=== PATIENT | male | born 1945 | race Caucasian/White ===

== ENCOUNTER 2019-07-31 08:18 | Inpatient (IN) | payer OTHER, SELFPAY ==
[2019-07-31] VITALS (27 sets, daily range): BP systolic 99–152; BP diastolic 52–111; PULSE 77–132; RESP 11–20; TEMP 35.9–36.6; O2SAT 97–100; BMI 20.8; BMI 19.8
--- NOTE | 2019-07-31 08:23 | NURSING ---
NO OLD EKGS
--- NOTE | 2019-07-31 08:33 | EKG12_ITS ---
Test Reason : CP Blood Pressure : / mmHG Vent. Rate : 130 BPM Atrial Rate : 120 BPM P-R Int : 000 ms QRS Dur : 088 ms QT Int : 320 ms P-R-T Axes : 000 012 099 degrees QTc Int : 470 ms Atrial fibrillation with rapid ventricular response Nonspecific ST and T wave abnormality Abnormal ECG Confirmed by OSKAR BRISCOE, ALVIN ([id number]), newspaper managing editor DARÍO WOODWARD ([id number]) on 08/01/2019 8:01:58 AM Referred By: Zoila Ledesma Confirmed By:WINNIE SCHMITT MD
--- NOTE | 2019-07-31 08:37 | RAD_ITS ---
STUDY: X-RAY CHEST REASON FOR EXAM: Male, 74 years old. CHEST PAIN TECHNIQUE: Single AP portable view of the chest. COMPARISON: None. FINDINGS: EKG electrodes are seen. The lungs are clear and expanded. There is no demonstrated pleural abnormality. Normal size heart. Normal mediastinum and jorge. Normal visualized pulmonary arteries. There is atherosclerotic calcification of the aortic arch with tortuosity. There are diffuse degenerative changes of the visualized thoracic spine. Normal visualized ribs, clavicles, and shoulders. There is no demonstrated abnormality of the visualized soft tissue structures of the upper abdomen. RAD/Chest 1 View (Portable) IMPRESSION: No acute abnormality is seen. Electronically Signed: Beau Martinez, at 9:09 EST , Service support ,
[2019-07-31] MEDS: dilTIAZem 25 MG/5 ML Vial 10 MG IV BOLUS (08:52)
[2019-07-31] MEDS: 0.9% Normal Saline 1,000 ML 150 ML IV ×2 (08:53→12:41)
--- NOTE | 2019-07-31 08:55 | ED.DCSUM_ITS ---
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 When asked how he is feeling it is extremely difficult to understand him on assuming due to a prior existing dysarthria. He tells me he is feeling his heart beating very hard and fast and occasionally makes him twinge. I cannot understand if he is from home or nursing facility. Cannot understand who his doctor is or where he gets his prescriptions filled. I am able to use online resources to see he has a history of hypertension, hypercholesterolemia, prior stroke, CHF, glaucoma, and a prior cardiac stent. Reportedly through EMS he did not take his metoprolol this morning and they administered a total of 10 mg of metoprolol for A. fib with RVR in route to the hospital and administered aspirin. Past Medical History - Allergies and Home Meds Allergies/Adverse Reactions: Allergies No Known Allergies Allergy (Verified 07/31/19 08:20) Primary Care Physician: [facility],[place] [Primary Care Provider] - Review of Systems General: Denies: Chills, Fever, Sweats Eyes: Denies: Visual changes - bilaterally, Diplopia ENT: Denies: Rhinorrhea, Sore throat Cardiovascular: Reports: Chest pain, Palpitations, Heart racing Respiratory: Denies: Dyspnea, Cough, Dyspnea on exertion Gastrointestinal: Denies: Abdominal pain, Nausea, Vomiting, Diarrhea, Melena, Hematochezia Genitourinary: Denies: Dysuria, Hematuria, Frequency Musculoskeletal: Denies: Back pain, Extremity Pain Skin: Denies: Rash, Wounds Neurological: Denies: Headache, Weakness, Numbness Physical Exam Vital Signs/Narrative: Vital Signs Temp Pulse Resp BP Pulse Ox 07/31/19 08:20 96.6 F L 119 H 16 152/111 H 99 Inital Vital Signs reviewed: Yes General: Well nourished, Well developed, No Acute Distress Head: Normocephalic, Atraumatic Eyes: Perrl, EOMI ENT: Moist mucous membranes, No rhinorrhea Neck: Supple, Nontender Cardiovascular: Irregular, Tachycardia, Murmur Respiratory: No distress, CTA bilaterally, Chest nontender Abdomen: Soft, Nontender, Nondistended, Normal bowel sounds Back: Nontender, Normal Inspection Extremities: Nontender, No edema Skin: Normal color, No rash Neurological: Alert, Normal Strength, Normal Sensation, - - Apparent dysarthria Psychological: Normal affect, Normal Mood Diagnostic/Tx/Re-eval - EKG Initial EKG Interpretation: Atrial Fibrillation - EKG demonstrates atrial fibrillation with RVR with a nonspecific ST-T wave abnormality at a rate of 130. - Medical Decision Making Basic labs are negative including a troponin. I have very limited medical information on him. Family was here for a brief period and subsequently left against his medications. We placed him on a Cardizem drip heart rate now 100- 110. Our plan will be admission as this appears to be new onset A. fib. ED Disposition - Plan for ED Patient: Diagnosis: Atrial fibrillation with RVR [facility] [[facility] -
--- NOTE | 2019-07-31 08:57 | ED.RN ---
PT EXTREMELY HARD TO UNDERSTAND, DIFFICULT TO DO DOCUMENTATION. TRIAGING NURSE STATES THAT SHE WAS TOLD THAT FAMILY IS ON THE WAY. AT THIS POINT, NO FAMILY HAS BEEN SEEN BY THIS RN.
--- NOTE | 2019-07-31 09:12 | ED.RN ---
DR JENKINS AWARE OF HEART RATE VARIATION BETWEEN MONITOR VS MANUAL, SEE VITALS DOCUMENTATION. PER DR. JENKINS INITIATE LILIYA BHATT.
[2019-07-31 09:42] LABS: Absolute Lymphocyte Count 0.38 X10^3/uL (0.83-4.51); Absolute Neutrophil Count 12.6 X10^3/uL (2.0-7.7); Basophil# 0.04 X10^3/uL; Basophil% 0.3 % (0-1); Eosinophil# 0.45 X10^3/uL; Eosinophils% 3.2 % (0-5); Hematocrit 44.4 % (40-54); Hemoglobin 14.1 g/dL (13.0-16.5); Lymphocyte # 0.38 X10^3/ul (4.0); Lymphocyte % 2.7 % (19-41); Mean Corp Hgb Conc 31.8 g/dL (32-36); Mean Corpuscular Hgb 31.1 pg (27.0-32.0); Mean Platelet Vol. 10.1 fl (6.2-12.0); Monocyte# 0.74 X10^3/uL; Monocyte% 5.2 % (0-10); NRBC Flagged by Analyzer 0 % (0-5); Neutrophil # 12.58 X10^3/uL (2.7-7.7); POSITIVE DIFFERENTIAL YES; Platelet Count 231 K/mm3 (150-450); RBC Distribution Width CV 12.9 % (11.6-14.6); RBC Distribution Width SD 46.1 fl (35.1-43.9); Red Blood Count 4.53 M/mm3 (4.6-6.2); White Blood Count 14.3 K/mm3 (4.4-11.0)
[2019-07-31 09:45] LABS: Differential Indicated SCAN CRITERIA MET
--- NOTE | 2019-07-31 09:46 | ED.RN ---
FAMILY NOW AT BEDSIDE.
[2019-07-31 09:50] LABS: Prothrombin Time (Protime)PT. 13.1 SECONDS (11.7-14.9)
[2019-07-31 09:52] LABS: Partial Thromboplast Time 28.8 Seconds (24.1-36.2)
[2019-07-31 10:03] LABS: Differential Comment SCANNED
[2019-07-31 10:04] LABS: Anion Gap 3 (5-15); BUN 18 mg/dL (7-18); BUN/Creat Ratio 13.3 RATIO (10-20); Calcium,Total 8.7 mg/dL (8.5-10.1); Chloride 112 mmol/L (98-107); Creatinine, Serum 1.35 mg/dL (0.70-1.30); EST Glomerular Filtration Rate 55 mL/min (>60); Est Glom Filt Rate - Afr Amer 66 mL/min (>60); Glucose 119 mg/dL (74-106); Magnesium 2.2 mg/dL (1.6-2.6); Potassium 4.1 mmol/L (3.5-5.1); Sodium Level 145 mmol/L (136-145); Thyroid Stim Hormone (TSH) 1.47 uIU/mL (0.358-3.74)
--- NOTE | 2019-07-31 10:29 | NURSING ---
[facility]ED [facility], TALKED TO ASH, SYSTEMS DEVELOPMENT CONSULTANT. SHE TOOK INFO AND WE SHOULD GET MED LIST
--- NOTE | 2019-07-31 10:33 | ED.RN ---
PER DR. JENKINS, INCREASE CARDIZEM FROM 5MG/HR TO 10MG/HR.
--- NOTE | 2019-07-31 11:14 | HP.PCM_ITS ---
Problem List (1) Atrial fibrillation with RVR Status: Acute (2) Leucocytosis Status: Acute Qualifiers: Leukocytosis type: unspecified Qualified Code(s): D72.829 - Elevated white blood cell count, unspecified (3) CKD (chronic kidney disease) stage 3, GFR 30-59 ml/min Status: Chronic History of Present Illness Date of Admission: 07/31/19 Chief Complaint: Chest pain - 1 day The patient is a 74 year old M with past medical history of hypertension, history of CVA with residual dysarthria who comes in with complaints of chest pain. History was obtained from the ED physician and review of records. Patient has no past history in [facility]. Family members were not available to give collaborative history. Is hard to understand patient as he has severe dysarthria probably from previous stroke. Per EMS records, patient was found to be in A. fib with RVR, he received 1 dose of IV metoprolol. Labs in the ED showed temperature 96.6 F, heart rate 119, blood pressure 152/111, respiratory rate 16, SPO2 was 99% on room air. His WBC count is 14.3, hemoglobin 14.1, platelet 231, INR 1.0, sodium 145, potassium 4.1, chloride 112, bicarbonate 30, BUN 18, creatinine 1.35, albumin was 2.2, troponin 0 0.015, TSH 1.47. EKG shows A. fib with RVR, ventricular rate of 130. No acute ST-T changes. Admitting chest x-ray showed no acute abnormality. Past Medical History Past Medical History (Chronic Problems): Chronic Problems CKD (chronic kidney disease) stage 3, GFR 30-59 ml/min (Chronic) Allergies No Known Allergies Allergy (Verified 07/31/19 08:20) Home Medications: Ambulatory Orders Medication Instructions Recorded Lisinopril 1 tab PO DAILY 07/31/19 Metoprolol Tartrate 1 tab PO BID 07/31/19 Surgical History: - - unknown, pt with severe dysarthria Psychiatric History: - - unknown, pt with severe dysarthria Lives: With Family Smoking Status: Former smoker Tobacco Use: Non-smoker Alcohol: None Drugs: None - *Family History Maternal History Items: Unknown Paternal History Items: Unknown Review of Systems Unable to obtain accurate/complete ROS d/t: pt with severe dysarthria VTE Information - Inpt Only VTE Present on Admission: No VTE Pharm Prophylaxis ordered?: Yes Patient Problems: Active and Suspected Problems Atrial fibrillation with RVR (Acute) Leucocytosis (Acute) - Physical Exam Vitals/I&O's: Vital Signs Temp Pulse Resp BP Pulse Ox 96.6 F L 111 H 16 150/52 H 99 07/31/19 08:20 07/31/19 11:06 07/31/19 11:06 07/31/19 10:38 07/31/19 11:06 Oxygen Flow Rate (L/min) 2 Oxygen Delivery Method Nasal Cannula Weight: 64 kg Body Mass Index (BMI) 20.8 Intake and Output for Last 24 Hours 07/29/19 07/30/19 07/31/19 23:59 23:59 23:59 Intake Total Balance General: Alert, Oriented x3, Cooperative, No apparent distress HEENT: Atraumatic, PERRLA, EOMI, Normocephalic Oral: Moist Mucosa Neck: Supple Lungs: Clear to auscultation, Normal air movement Cardiovascular: Regular rate, Regular Rhythm, Normal S1, Normal S2, Murmur - 08/31 holosystolic murmur Abdomen: Bowel Sounds Present, Soft, Non Tender, Non-Distended, No Hepato- splenomegaly Extremities: No edema Skin: No rashes, No breakdown Musculoskeletal: No Tenderness to Palpation of Joints or Extremities Lymphatic: No Cervical, Supraclavicular, or Inguinal Adenopathy Neurological: Cranial nerves II-XII grossly intact, Neuro grossly intact - severe dysarthria, unable to comprehend Psych/Mental Status: Normal Affect, Appropriate Laboratory Results 07/31/19 09:35: WBC 14.3 H, RBC 4.53 L, Hgb 14.1, Hct 44.4, MCV 98.0 H, MCH 31.1, MCHC 31.8 L, RDW Std Deviation 46.1 H, RDW Coeff of Elizabeth 12.9, Plt Count 231, MPV 10.1, Immature Gran % (Auto) 0.600, Neut % (Auto) 88.0 H, Lymph % (Auto) 2.7 L, [place] % (Auto) 5.2, Eos % (Auto) 3.2, Baso % (Auto) 0.3, Absolute Neuts (auto) 12.6 H, Absolute Lymphs (auto) 0.38 L, Nucleated RBC % 0, Differential Comment SCANNED 07/31/19 09:35: PT 13.1, INR 1.0, APTT 28.8 07/31/19 09:35: Sodium 145, Potassium 4.1, Chloride 112 H, Carbon Dioxide 30.0, Anion Gap 3 L, BUN 18, Creatinine 1.35 H, Estim Creat Clear Calc 42.80, Est GFR (MDRD) Af Amer 66, Est GFR (MDRD) Non-Af 55 L, BUN/Creatinine Ratio 13.3, Glucose 119 H, Calcium 8.7, Magnesium 2.2, Troponin I < 0.015, TSH 1.47 Current Medications Sodium Chloride () 1,000 mls @ 150 mls/hr IV .Q6H40M CHRISTIAN Last Admin: 07/31/19 08:53 Dose: 150 mls/hr Documented by: Diltiazem HCl 125 mg/ Dextrose 125 mls @ 5 mls/hr IV .Q25H CHRISTIAN; Protocol Last Titration: 07/31/19 10:31 Dose: 10 mg/hr, 10 mls/hr Documented by: Assessment/Plan All Active Problems Atrial fibrillation with RVR (Acute) Leucocytosis (Acute) 1. A fib with RVR, ? newly diagnosed, HR >130, [id number] score at least 5 TSH 1.47, Started on Cardizem IV drip Will also start on metoprolol 25mg BID, Lovenox 60mg BID, 2d-ECHO, trend troponins Will need extra history from family as well as get records from [place] [facility] 2. Chest pain likely secondary to #1, no acute ST changes on EKG Will trend troponins, check lipid profile 3. Severe dysarthria secondary to history of recurrent CVA Not on aspirin, will continue on Lisinopril 5mg daily pending accurate home dosing 4. CKD stage 3, unclear previous baseline, will continue IVF, trend labs 5. DVT PPx- Lovenox SC therapeutic dosing Inpatient E&M: [id number] Init Hosp L2
--- NOTE | 2019-07-31 11:17 | NURSING ---
PCU PAINTSIL AFIB W RVR
--- NOTE | 2019-07-31 12:34 | ECHOD_ITS ---
Reason For Study: AFIB Procedure This was a 2D Doppler, Color Flow transthoracic echocardiogram. Exam performed in department. Left Ventricle Normal LV size. The estimated ejection fraction is 75 %. Diastolic function is indeterminate. No regional wall motion abnormalities noted. Right Ventricle Normal RV size. Normal systolic function. Atria The left atrium is severely enlarged. Normal right atrium. No doppler evidence for ASD. Mitral Valve There is no mitral valve stenosis. Moderate (2+) mitral valve insufficiency. Tricuspid Valve There is no tricuspid stenosis. Mild tricuspid valve insufficiency. Pulmonary artery systolic pressure is 35-40 mmHg. Aortic Valve Trisinus/trileaflet aortic valve. There is no aortic stenosis. Mild (1+) aortic valve insufficiency. Pulmonic Valve There is no pulmonic valvular stenosis. No pulmonic valve insufficiency. Great Vessels Normal aortic root. Pericardium/Pleural No pericardial effusion. MMode/2D Measurements & Calculations LVIDd: 3.3 cm IVSd: 1.3 cm Ao root diam: 3.2 cm LVIDs: 2.0 cm LVPWd: 1.2 cm RVDd: 3.9 cm FS: 40.4 % LAV(MOD-bp): 70.8 ml LA A4 area: 23.0 cm2 LA dimension(2D): 4.5 cm LAV(MOD-bp) Indexed: 39.7 ml/m2 LAV(MOD-sp2): 66.5 ml LAV(MOD-sp4): 71.8 ml RA A4 area: 11.9 cm2 Doppler Measurements & Calculations Ao V2 max: 153.8 cm/sec AI max reji: 370.0 cm/sec TR max reji: 281.2 cm/sec Ao max P.5 mmHg AI max P.8 mmHg TR max P.7 mmHg AI dec slope: 361.9 cm/sec2 AI P1/2t: 299.5 msec Interpretation Summary The estimated ejection fraction is 75 %. Diastolic function is indeterminate. The left atrium is severely enlarged. Moderate (2+) mitral valve insufficiency. Mild tricuspid valve insufficiency. Pulmonary artery systolic pressure is 35-40 mmHg. Mild (1+) aortic valve insufficiency. Ordering Physician: Zoila Ledesma Referring Physician: [facility] Performed By: Ann Marie Padilla, RDCS, RVT
[2019-07-31] MEDS: Enoxaparin 60 MG/0.6 ML Syringe SC ×2 (15:48→22:30)
[2019-07-31] MEDS: Metoprolol Tartrate 25 MG Tablet 37.5 MG PO (20:12)
--- NOTE | 2019-07-31 22:15 | NURSING ---
Cardizem drip has been stopped as per Dr. Sandoval nurse communication order. Pt. HR 86, BP 100/58, Afib on monitor.
[2019-07-31] MEDS: Atorvastatin Calcium 80 MG Tablet PO (22:35)
[2019-07-31] MEDS: 0.9% Normal Saline 1,000 ML 75 ML IV (22:35)
[2019-07-31] MEDS: Docusate Sodium 100 MG Capsule PO (22:35)
[2019-08-01] VITALS (39 sets, daily range): BP systolic 85–134; BP diastolic 40–86; PULSE 43–147; RESP 15–21; TEMP 36.3–36.7; O2SAT 18–100
[2019-08-01] MEDS: 0.9% Saline Lock 10 ML Syringe IV (01:36)
[2019-08-01] MEDS: dilTIAZem 25 MG/5 ML Vial 5 MG IV BOLUS (01:36)
[2019-08-01] MEDS: Enoxaparin 60 MG/0.6 ML Syringe SC ×2 (05:54→19:03)
[2019-08-01 06:06] LABS: Absolute Lymphocyte Count 1.03 X10^3/uL (0.83-4.51); Absolute Neutrophil Count 4.2 X10^3/uL (2.0-7.7); Basophil# 0.03 X10^3/uL; Basophil% 0.5 % (0-1); Eosinophil# 0.26 X10^3/uL; Eosinophils% 4.3 % (0-5); Hematocrit 34.2 % (40-54); Hemoglobin 11.2 g/dL (13.0-16.5); Lymphocyte # 1.03 X10^3/ul (4.0); Lymphocyte % 16.9 % (19-41); Mean Corp Hgb Conc 32.7 g/dL (32-36); Mean Corpuscular Hgb 31.8 pg (27.0-32.0); Mean Corpuscular Volume 97.2 fL (80-94); Mean Platelet Vol. 10.6 fl (6.2-12.0); Monocyte# 0.58 X10^3/uL; Monocyte% 9.5 % (0-10); NRBC Flagged by Analyzer 0 % (0-5); Neutrophil # 4.18 X10^3/uL (2.7-7.7); Neutrophil % 68.5 % (47-70); Platelet Count 204 K/mm3 (150-450); RBC Distribution Width SD 45.9 fl (35.1-43.9); Red Blood Count 3.52 M/mm3 (4.6-6.2); White Blood Count 6.1 K/mm3 (4.4-11.0)
[2019-08-01 06:32] LABS: AST(SGOT) 20 U/L (15-37); Alanine Aminotransfer ALT/SGPT 21 U/L (16-61); Albumin, Serum 2.5 g/dL (3.2-5.0); Alkaline Phosphatase 75 U/L (45-117); Anion Gap 3 (5-15); BUN 19 mg/dL (7-18); Calcium,Total 7.7 mg/dL (8.5-10.1); Chloride 115 mmol/L (98-107); Creatinine, Serum 1.19 mg/dL (0.70-1.30); EST Glomerular Filtration Rate 63 mL/min (>60); Est Glom Filt Rate - Afr Amer 77 mL/min (>60); Estimated Creatinine Clearance 47.64 ml/min; Globulin 2.6 g/dL (2.2-4.2); Glucose 97 mg/dL (74-106); Potassium 3.6 mmol/L (3.5-5.1); Protein, Total 5.1 g/dL (6.4-8.2); Sodium Level 146 mmol/L (136-145)
[2019-08-01] MEDS: Clopidogrel Bisulfate 75 MG Tablet PO (09:31)
[2019-08-01] MEDS: Docusate Sodium 100 MG Capsule PO ×2 (09:31→22:25)
[2019-08-01] MEDS: amLODIPine 10 MG Tablet PO (09:31)
[2019-08-01] MEDS: Lisinopril 5 MG Tablet PO (09:31)
[2019-08-01] MEDS: Metoprolol Tartrate 25 MG Tablet 37.5 MG PO ×2 (09:32→22:25)
[2019-08-01] MEDS: Pantoprazole Sodium 40 MG Tablet PO (09:32)
--- NOTE | 2019-08-01 10:15 | CASEMGMT ---
Addendum entered by Lakshmi Ulloa 08/01/19 15:56: GEC form and H/P faxed to [facility] at this time. PT/OT evals to be faxed to [facility] once they are available. Addendum entered by Lakshmi Ulloa 08/01/19 15:08: 1430: Call received back form [facility] nurse who states they will work on setting up HHC for [facility] and PT/OT and aides for pt once he is seen @ the [facility]. She asked for clinicals and therapy notes be faxed to them when available. She was also made aware plan is for pt to discharge home on Eliquis and will be given 30-day savings card, but will need follow up for refills/education. She states they have an anti-coag clinic they will refer pt to. 1500: Spoke with pt's magnus/Ayaka ABRAHAM. She was notified [facility] once he is seen @ the [facility] for follow-up appt, as their MD's need to write the order for it. She voices understanding. Discussed Eliquis with Ayaka. She states she is familiar with it, as she is taking it herself. She was made aware anticipate pt will discharge home on Eliquis and that pt will be given a 30-day savings card for it and she was instructed on use/how to apply card at the pharmacy. Ayaka also made aware of importance of pt following up @ [facility] so they can write for refills/follow-up, as this medication is costly and pt will need to get through the [facility]. Ayaka voices understanding. Addendum entered by Lakshmi Ulloa 08/01/19 10:43: Pt's Ayaka agudelo, stated pt has been to [facility] in the past and is aware if bed becomes available, that pt will need to be transferred to [facility]. She voices understanding. Call placed to [facility]. They state they do have pt on record/are aware of pt's admission to [facility] and confirmed pt is 50% Service Connected and does have travel benefits. Transfer Center nurse coordinator: Ayaka. Ext: [phone]. Message left on Ayaka's VM to return call if she needs any further clinical information and to inquire about bed availability for transfer. Call placed to [facility] @ [phone]. Pt's [facility] MD is Jackie and nurse is Rosalba. Ext: [phone]. Message left for nurse Rosalba, informing her of family's request for HHC and aides. Awaiting return call. [facility] form initiated and will fax to [facility] once return call received. . Original Note: RN CM CHANNEL SUPERVISOR CM to room to meet with patient for initial transition planning/care coordination assessment. RN ANABELA introduced self and role at [facility]. Pt resting in bed in no distress at this time. Pt is alert. Hx CVA and speech difficult to understand. Pt was able to communicate to this RN CM permission to call his niece, Ayaka, at this time. Call placed to Ayaka and the following information was obtained from her. Ayaka states pt lives with her and her and she helps to take care of pt. Ayaka states neither she nor her family will not be coming in to visit pt d/t Everyone in our house currently has the flu. Care providers, pharmacy, and demographics verified/updated at this time. PCP: [facility] Specialists: Chief Nurse Executive @ [facility] Preferred Pharmacy: [facility] for short-term meds. [facility] for long-term meds. Insurance: VA benefits only. Prescription Benefit: Through the [facility] only. Does not have other prescription benefit and has limited income. Living Will/HPOA: Pt does not have LW, but does have Healthcare POA. Ayaka states she is the Healthcare POA. She states she will try to have paperwork brought in so it can be placed on file @ [facility]. LNOK: Niece, Ayaka Colon, Healthcare POA Living Arrangements: Lives in 2-story home with his niece, Ayaka, and her . Pt stays on main floor. Has3 steps to enter. Ayaka states her daughter and daughter's family stay on the lower level. Ayaka states pt has been showering/dressing himself independently and ambulates independently, but states she is not sure how well he is bathing himself. She states she does all the home mgmt taskf for pt and cooking, laundry, med mgmt, doctor appts. Transportation: Ayaka provides transportation. DME: has the following DME: shower chair, grab bars, hand held shower. Pt has CPAP, but refuses to wear it. Ayaka states no need for further DME at this time. HHC/SNF: Hx of SNF in 2016 after CVA. Also had HHC. Ayaka wishes for pt to return home and states pt has been weak and feels he would benefit from HHC and aide services. CM to follow for any further discharge planning/needs. Ayaka voices no further concerns/needs at this time. Advised her to ask for CM if any further questions/concerns/needs arise. Voices understanding. PLAN: Home w/family support. CM to initiate process of getting HHC set up and aide services through the [facility]. Anticipate pt will discharge home on anti-coag. Will need 30-day savings card. CM to follow for cost of meds @ d/c. Pt may need [facility] prescription assist if cost of d/c meds is not affordable, as pt does not have prescription benefits, other than through the [facility]. PT/OT evals pending. Alicia DAUGHERTYN RN CM
--- NOTE | 2019-08-01 10:43 | CASEMGMT ---
This RN ANABELA received call from Ayaka at the [facility] transfer center and she states does not see any reason to transfer pt at this time as he has just converted out of the afib. She states if the plan is to keep pt longer than tomorrow then they will consider transfer. Per Lon YOUNGBLOOD, planned discharge is tomorrow at this time. CM to notify [facility] transfer center if plans change. SONNY Perez, states she will fax clinicals to [facility] transfer center at this time and will send d/c summ when obtained. Varsha US CM
--- NOTE | 2019-08-01 12:41 | PCM.PN.HOSP ---
<Roni Pearce - Last Filed: 08/01/19 12:41> Patient Problems: Active and Suspected Problems Atrial fibrillation with RVR (Acute) Leucocytosis (Acute) Reason for Visit: afib rvr Subjective: severe aphasia, pt can only give me clear yes/no type answers, he cannot form sensicle sentences. NO CP, no sob, no palp, no dizziness/LH. No le edema. No nausea, vomiting, diarrhea. Vitals/I&O's: Vital Signs Temp Pulse Resp BP Pulse Ox 97.8 F 55 L 16 103/55 L 93 08/01/19 10:00 08/01/19 10:45 08/01/19 10:45 08/01/19 10:45 08/01/19 10:45 Oxygen Flow Rate (L/min) 2 Oxygen Delivery Method Room Air Weight: 138 lb 7.205 oz Body Mass Index (BMI) 19.8 Intake and Output for Last 24 Hours 07/30/19 07/31/19 08/01/19 23:59 23:59 23:59 Intake Total 2250.83 / 2250.83 136.66 / 136.66 Output Total 100 / 100 125 / 125 Balance 2150.83 / 2150.83 11.66 / 11.66 General: Alert, Oriented x3, Cooperative HEENT: Atraumatic, PERRLA, EOMI, Normocephalic Neck: Supple, No JVD, Negative Carotid Bruits Lungs: Clear to auscultation, Normal air movement Cardiovascular: No murmurs, Irregular Rate Abdomen: Bowel Sounds Present, Soft, Non Tender Extremities: No edema, Capillary Refill Less than 3 Seconds Skin: No rashes, No breakdown Musculoskeletal: No Tenderness to Palpation of Joints or Extremities Neurological: Cranial nerves II-XII grossly intact Psych/Mental Status: Normal Affect, Appropriate, Alert and oriented to time, place, person, mood and affect Laboratory Results 07/31/19 15:45: Troponin I 0.026 07/31/19 18:15: Troponin I 0.037 08/01/19 05:36: WBC 6.1, RBC 3.52 L, Hgb 11.2 L, Hct 34.2 L, MCV 97.2 H, MCH 31.8, MCHC 32.7, RDW Std Deviation 45.9 H, RDW Coeff of Elizabeth 13.0, Plt Count 204, MPV 10.6, Immature Gran % (Auto) 0.300, Neut % (Auto) 68.5, Lymph % (Auto) 16.9 L, Kendall % (Auto) 9.5, Eos % (Auto) 4.3, Baso % (Auto) 0.5, Absolute Neuts (auto) 4.2, Absolute Lymphs (auto) 1.03, Nucleated RBC % 0 08/01/19 05:36: Sodium 146 H, Potassium 3.6, Chloride 115 H, Carbon Dioxide 28.0, Anion Gap 3 L, BUN 19 H, Creatinine 1.19, Estim Creat Clear Calc 47.64, Est GFR (MDRD) Af Amer 77, Est GFR (MDRD) Non-Af 63, BUN/Creatinine Ratio 16.0, Glucose 97, Calcium 7.7 L, Total Bilirubin 0.50, AST 20, ALT 21, Alkaline Phosphatase 75, Total Protein 5.1 L, Albumin 2.5 L, Globulin 2.6, Albumin/Globulin Ratio 1.0 Current Medications Acetaminophen (Tylenol) 650 mg PO Q6H PRN PRN PRN Reason: Pain Score 1-10/Temp > 100.7 F Al Hydroxide/Mg Hydroxide (Mylanta Ii) 30 ml PO Q6H PRN PRN PRN Reason: Gastric Burning Amlodipine Besylate (Norvasc) 10 mg PO DAILY [facility] Last Admin: 08/01/19 09:31 Dose: 10 mg Documented by: Atorvastatin Calcium (Lipitor) 80 mg PO QHS [facility] Last Admin: 07/31/19 22:35 Dose: 80 mg Documented by: Bisacodyl (Dulcolax) 5 mg PO DAILY PRN PRN PRN Reason: Constipation Clopidogrel Bisulfate (Plavix) 75 mg PO DAILY [facility] Last Admin: 08/01/19 09:31 Dose: 75 mg Documented by: Docusate Sodium (Colace) 100 mg PO BID [facility] Last Admin: 08/01/19 09:31 Dose: 100 mg Documented by: Enoxaparin Sodium (Lovenox) 60 mg SC Q12@0600,1800 [facility] Last Admin: 08/01/19 05:54 Dose: 60 mg Documented by: Glucagon () 1 mg IM .X1 PRN PRN Reason: Hypoglycemia Guaifenesin (Robitussin) 20 ml PO Q4H PRN PRN PRN Reason: COUGH Sodium Chloride () 1,000 mls @ 75 mls/hr IV .[id number] [facility] Last Admin: 07/31/19 22:35 Dose: 75 mls/hr Documented by: Dextrose (Dextrose 10%-Water) 250 mls @ 999 mls/hr IV .Q16M PRN; Protocol PRN Reason: HYPOGLYCEMIA Diltiazem HCl 125 mg/ Dextrose 125 mls @ 5 mls/hr IV .Q25H [facility]; Protocol Last Titration: 08/01/19 10:45 Dose: 5 mg/hr, 5 mls/hr Documented by: Lisinopril (Zestril) 5 mg PO DAILY [facility] Last Admin: 08/01/19 09:31 Dose: 5 mg Documented by: Melatonin (Melatonin) 3 mg PO QHS PRN PRN PRN Reason: INSOMNIA Metoprolol Tartrate (Lopressor (Beta Abraham)) 37.5 mg PO BID [facility] Last Admin: 08/01/19 09:32 Dose: 37.5 mg Documented by: Nitroglycerin (Nitrostat) 0.4 mg SUBLINGUAL Q5M PRN PRN Reason: CARDIAC/CHEST PAIN Nutritional Formula (Lactose Free) (Ensure Enlive) 120 ml PO 4X/DAY [facility] Last Admin: 08/01/19 09:32 Dose: 120 ml Documented by: Ondansetron HCl (Zofran) 4 mg IV Q8H PRN PRN PRN Reason: NAUSEA/VOMITING Pantoprazole Sodium (Protonix) 40 mg PO DAILY [facility] Last Admin: 08/01/19 09:32 Dose: 40 mg Documented by: Psyllium Hydrophilic Mucilloid (Metamucil) 1 packet PO DAILY PRN PRN PRN Reason: Constipation Sodium Chloride () 10 - 40 ml IV UD PRN PRN Reason: SALINE FLUSH Last Admin: 08/01/19 01:36 Dose: 10 ml Documented by: Throat Lozenges (Cepacol Sore Throat Lozenge) 1 lozenge MUCOUS MEM Q2H PRN PRN PRN Reason: SORE THROAT STROKE Vital Signs/Narrative: Vital Signs Temp Pulse Resp BP Pulse Ox 08/01/19 10:45 55 L 16 103/55 L 93 08/01/19 10:32 43 L 18 91/58 L 18 08/01/19 10:00 97.8 F 71 16 104/50 L 96 08/01/19 09:32 68 103/76 08/01/19 09:00 97.8 F 70 18 103/76 97 Medical Necessity - Tobacco Use Smoking Status: Former smoker Tobacco Use: Non-smoker Assessment/Plan All Active Problems Atrial fibrillation with RVR (Acute) Leucocytosis (Acute) 1. New onset afib / rvr - converted on diltiazem. convert to PO and monitor overnight. Continue metoprolol. Trop negx3. Echo pending. CXR negative. Continue BID lovenox. Plan to send on eliquis 2. Leukocytosis - resolving. Unclear etiology. doubt infectious process - currently no acute symptoms. 3. Prior stroke. severe aphasia - plavix, statin 4. HTN - boderline low on drip, transition to po and moniotr. DVT ppx: lovenox DC planning: PTOT This patient was seen by Roni Pearce PA-C under the supervision of Doctor Baltazar. <Zoila Ledesma - Last Filed: 08/02/19 08:05> Vitals/I&O's: Vital Signs Temp Pulse Resp BP Pulse Ox 97.8 F 64 16 121/63 H 95 08/01/19 17:00 08/01/19 17:00 08/01/19 17:00 08/01/19 17:00 08/01/19 17:00 Oxygen Flow Rate (L/min) 2 Oxygen Delivery Method Room Air Weight: 62.8 kg Body Mass Index (BMI) 19.8 Intake and Output for Last 24 Hours 07/30/19 07/31/19 08/01/19 23:59 23:59 23:59 Intake Total 2250.83 / 2250.83 1651.91 / 1651.91 Output Total 100 / 100 125 / 125 Balance 2150.83 / 2150.83 1526.91 / 1526.91 Laboratory Results 07/31/19 18:15: Troponin I 0.037 08/01/19 05:36: WBC 6.1, RBC 3.52 L, Hgb 11.2 L, Hct 34.2 L, MCV 97.2 H, MCH 31.8, MCHC 32.7, RDW Std Deviation 45.9 H, RDW Coeff of Elizabeth 13.0, Plt Count 204, MPV 10.6, Immature Gran % (Auto) 0.300, Neut % (Auto) 68.5, Lymph % (Auto) 16.9 L, Kendall % (Auto) 9.5, Eos % (Auto) 4.3, Baso % (Auto) 0.5, Absolute Neuts (auto) 4.2, Absolute Lymphs (auto) 1.03, Nucleated RBC % 0 08/01/19 05:36: Sodium 146 H, Potassium 3.6, Chloride 115 H, Carbon Dioxide 28.0, Anion Gap 3 L, BUN 19 H, Creatinine 1.19, Estim Creat Clear Calc 47.64, Est GFR (MDRD) Af Amer 77, Est GFR (MDRD) Non-Af 63, BUN/Creatinine Ratio 16.0, Glucose 97, Calcium 7.7 L, Total Bilirubin 0.50, AST 20, ALT 21, Alkaline Phosphatase 75, Total Protein 5.1 L, Albumin 2.5 L, Globulin 2.6, Albumin/Globulin Ratio 1.0 Current Medications Acetaminophen (Tylenol) 650 mg PO Q6H PRN PRN PRN Reason: Pain Score 1-10/Temp > 100.7 F Al Hydroxide/Mg Hydroxide (Mylanta Ii) 30 ml PO Q6H PRN PRN PRN Reason: Gastric Burning Amlodipine Besylate (Norvasc) 10 mg PO DAILY [facility] Last Admin: 08/01/19 09:31 Dose: 10 mg Documented by: Atorvastatin Calcium (Lipitor) 80 mg PO QHS [facility] Last Admin: 07/31/19 22:35 Dose: 80 mg Documented by: Bisacodyl (Dulcolax) 5 mg PO DAILY PRN PRN PRN Reason: Constipation Clopidogrel Bisulfate (Plavix) 75 mg PO DAILY [facility] Last Admin: 08/01/19 09:31 Dose: 75 mg Documented by: Docusate Sodium (Colace) 100 mg PO BID [facility] Last Admin: 08/01/19 09:31 Dose: 100 mg Documented by: Enoxaparin Sodium (Lovenox) 60 mg SC Q12@0600,1800 [facility] [place] Last Admin: 08/01/19 05:54 Dose: 60 mg Documented by: Glucagon () 1 mg IM .X1 PRN PRN Reason: Hypoglycemia Guaifenesin (Robitussin) 20 ml PO Q4H PRN PRN PRN Reason: COUGH Dextrose (Dextrose 10%-Water) 250 mls @ 999 mls/hr IV .Q16M PRN; Protocol PRN Reason: HYPOGLYCEMIA Lisinopril (Zestril) 5 mg PO DAILY [facility] [place] Last Admin: 08/01/19 09:31 Dose: 5 mg Documented by: Melatonin (Melatonin) 3 mg PO QHS PRN PRN PRN Reason: INSOMNIA Metoprolol Tartrate (Lopressor (Beta Abraham)) 37.5 mg PO BID [facility] [place] Last Admin: 08/01/19 09:32 Dose: 37.5 mg Documented by: Nitroglycerin (Nitrostat) 0.4 mg SUBLINGUAL Q5M PRN PRN Reason: CARDIAC/CHEST PAIN Nutritional Formula (Lactose Free) (Ensure Enlive) 120 ml PO 4X/DAY [facility] Last Admin: 08/01/19 14:20 Dose: 120 ml Documented by: Ondansetron HCl (Zofran) 4 mg IV Q8H PRN PRN PRN Reason: NAUSEA/VOMITING Pantoprazole Sodium (Protonix) 40 mg PO DAILY [facility] Last Admin: 08/01/19 09:32 Dose: 40 mg Documented by: Psyllium Hydrophilic Mucilloid (Metamucil) 1 packet PO DAILY PRN PRN PRN Reason: Constipation Sodium Chloride () 10 - 40 ml IV UD PRN PRN Reason: SALINE FLUSH Last Admin: 08/01/19 01:36 Dose: 10 ml Documented by: Throat Lozenges (Cepacol Sore Throat Lozenge) 1 lozenge MUCOUS MEM Q2H PRN PRN PRN Reason: SORE THROAT STROKE Vital Signs/Narrative: Vital Signs Temp Pulse Resp BP Pulse Ox 08/01/19 17:00 97.8 F 64 16 121/63 H 95 08/01/19 16:06 61 08/01/19 15:00 62 18 114/60 100 08/01/19 14:20 97.8 F 61 17 119/62 98 08/01/19 14:00 97.8 F 62 18 119/62 94 08/01/19 13:59 90 Assessment/Plan This patient was seen in conjunction with LINDA Georges. I have independently interviewed and examined the patient and reviewed pertinent historical, laboratory, and other data. Please refer to LINDA Georges note for his patient's presentation, findings, and recommendations. I have reviewed and his note and concur with his documentation Patient was seen and examined. appears comfortable. Called his POA, niece and discussed his care. Will likely discharge in am Physical Exam: Gen: Comfortable, not pale, not jaundiced CVS:HS I +II, regular, no murmurs RESP: Diminished at lung bases GI: BS present and normal, soft, nontender, no palpable organs EXT:No edema MUSIC SOUND LIGHT TECHNICIAN: Severely dysarthric, power is 5/5 in all 4 limbs ASSESSMENT: 1. A. fib with RVR 2. Chest pain 3. Hypernatremic 4. Severe dysarthria from previous stroke 5. LANDRY vs CKD stage 3 6. Hypertension Plan: Discontinue cardizem drip Continue on metoprolol Continue on Lovenox Need to discuss fall risk and decide on Eliquis if needed Will re-evaluate for Dc in am Inpatient E&M: 86022 Subs Hosp L2
[2019-08-01] MEDS: 0.9% Normal Saline 1,000 ML 75 ML IV (14:19)
[2019-08-01] MEDS: Atorvastatin Calcium 80 MG Tablet PO (22:25)
[2019-08-02 02:57] VITALS: PULSE 74
[2019-08-02 03:40] VITALS: BP 121/59; PULSE 68; RESP 16; TEMP 36.4; O2SAT 94
[2019-08-02] MEDS: Enoxaparin 60 MG/0.6 ML Syringe SC (05:45)
[2019-08-02 06:54] VITALS: PULSE 67
[2019-08-02 07:30] VITALS: O2SAT 95
[2019-08-02 08:08] LABS: Anion Gap 5 (5-15); BUN 15 mg/dL (7-18); BUN/Creat Ratio 15.6 RATIO (10-20); Calcium,Total 7.8 mg/dL (8.5-10.1); Chloride 111 mmol/L (98-107); Creatinine, Serum 0.96 mg/dL (0.70-1.30); EST Glomerular Filtration Rate 81 mL/min (>60); Est Glom Filt Rate - Afr Amer 98 mL/min (>60); Estimated Creatinine Clearance 60.37 ml/min; Glucose 88 mg/dL (74-106); Potassium 3.6 mmol/L (3.5-5.1); Sodium Level 141 mmol/L (136-145)
[2019-08-02 09:40] VITALS: BP 126/61; PULSE 65; RESP 18; TEMP 36.8; O2SAT 95
[2019-08-02 10:01] VITALS: PULSE 65
[2019-08-02] MEDS: amLODIPine 10 MG Tablet PO (10:01)
[2019-08-02] MEDS: Docusate Sodium 100 MG Capsule PO (10:01)
[2019-08-02] MEDS: Lisinopril 5 MG Tablet PO (10:01)
[2019-08-02] MEDS: Metoprolol Tartrate 25 MG Tablet 37.5 MG PO (10:01)
[2019-08-02] MEDS: Clopidogrel Bisulfate 75 MG Tablet PO (10:01)
[2019-08-02] MEDS: Pantoprazole Sodium 40 MG Tablet PO (10:01)
--- NOTE | 2019-08-02 10:48 | PN_ITS ---
Patient Problems: Active and Suspected Problems Atrial fibrillation with RVR (Acute) Leucocytosis (Acute) Vitals/I&O's: Vital Signs Temp Pulse Resp BP Pulse Ox 98.3 F 65 18 126/61 H 95 08/02/19 09:40 08/02/19 10:01 08/02/19 09:40 08/02/19 09:40 08/02/19 09:40 Oxygen Flow Rate (L/min) 2 Oxygen Delivery Method Room Air Weight: 141 lb 8.588 oz Body Mass Index (BMI) 19.8 Intake and Output for Last 24 Hours 07/31/19 08/01/19 08/02/19 23:59 23:59 23:59 Intake Total 2250.83 / 2250.83 2000. / 50 / 50 Output Total 100 / 100 125 / 125 Balance 2150.83 / 2150.83 1876.91 / 1876.91 50 / 50 General: Alert, Oriented x3, Cooperative HEENT: Atraumatic, PERRLA, EOMI, Normocephalic Neck: Supple, No JVD, Negative Carotid Bruits Lungs: Clear to auscultation, Normal air movement Cardiovascular: Regular rate, No murmurs Abdomen: Bowel Sounds Present, Soft, Non Tender Extremities: No edema, Capillary Refill Less than 3 Seconds Skin: No rashes, No breakdown Musculoskeletal: No Tenderness to Palpation of Joints or Extremities Neurological: Cranial nerves II-XII grossly intact Psych/Mental Status: Normal Affect, Appropriate, Alert and oriented to time, place, person, mood and affect Laboratory Results 08/02/19 06:45: Sodium 141, Potassium 3.6, Chloride 111 H, Carbon Dioxide 25.0, Anion Gap 5, BUN 15, Creatinine 0.96, Estim Creat Clear Calc 60.37, Est GFR (MDRD) Af Amer 98, Est GFR (MDRD) Non-Af 81, BUN/Creatinine Ratio 15.6, Glucose 88, Calcium 7.8 L Current Medications Acetaminophen (Tylenol) 650 mg PO Q6H PRN PRN PRN Reason: Pain Score 1-10/Temp > 100.7 F Al Hydroxide/Mg Hydroxide (Mylanta Ii) 30 ml PO Q6H PRN PRN PRN Reason: Gastric Burning Amlodipine Besylate (Norvasc) 10 mg PO DAILY [facility] Last Admin: 08/02/19 10:01 Dose: 10 mg Documented by: Atorvastatin Calcium (Lipitor) 80 mg PO QHS [facility] Last Admin: 08/01/19 22:25 Dose: 80 mg Documented by: Bisacodyl (Dulcolax) 5 mg PO DAILY PRN PRN PRN Reason: Constipation Clopidogrel Bisulfate (Plavix) 75 mg PO DAILY [facility] Last Admin: 08/02/19 10:01 Dose: 75 mg Documented by: Docusate Sodium (Colace) 100 mg PO BID [facility] Last Admin: 08/02/19 10:01 Dose: 100 mg Documented by: Enoxaparin Sodium (Lovenox) 60 mg SC Q12@0600,1800 [facility] Last Admin: 08/02/19 05:45 Dose: 60 mg Documented by: Glucagon () 1 mg IM .X1 PRN PRN Reason: Hypoglycemia Guaifenesin (Robitussin) 20 ml PO Q4H PRN PRN PRN Reason: COUGH Dextrose (Dextrose 10%-Water) 250 mls @ 999 mls/hr IV .Q16M PRN; Protocol PRN Reason: HYPOGLYCEMIA Lisinopril (Zestril) 5 mg PO DAILY [facility] Last Admin: 08/02/19 10:01 Dose: 5 mg Documented by: Melatonin (Melatonin) 3 mg PO QHS PRN PRN PRN Reason: INSOMNIA Metoprolol Tartrate (Lopressor (Beta Abraham)) 37.5 mg PO BID [facility] Last Admin: 08/02/19 10:01 Dose: 37.5 mg Documented by: Nitroglycerin (Nitrostat) 0.4 mg SUBLINGUAL Q5M PRN PRN Reason: CARDIAC/CHEST PAIN Nutritional Formula (Lactose Free) (Ensure Enlive) 120 ml PO 4X/DAY [facility] Last Admin: 08/02/19 10:01 Dose: 120 ml Documented by: Ondansetron HCl (Zofran) 4 mg IV Q8H PRN PRN PRN Reason: NAUSEA/VOMITING Pantoprazole Sodium (Protonix) 40 mg PO DAILY [facility] Last Admin: 08/02/19 10:01 Dose: 40 mg Documented by: Psyllium Hydrophilic Mucilloid (Metamucil) 1 packet PO DAILY PRN PRN PRN Reason: Constipation Sodium Chloride () 10 - 40 ml IV UD PRN PRN Reason: SALINE FLUSH Last Admin: 08/01/19 01:36 Dose: 10 ml Documented by: Throat Lozenges (Cepacol Sore Throat Lozenge) 1 lozenge MUCOUS MEM Q2H PRN PRN PRN Reason: SORE THROAT STROKE Vital Signs/Narrative: Vital Signs Temp Pulse Resp BP Pulse Ox 08/02/19 10:01 65 08/02/19 09:40 98.3 F 65 18 126/61 H 95 08/02/19 07:30 95 08/02/19 06:54 67 Medical Necessity - Tobacco Use Smoking Status: Former smoker Tobacco Use: Non-smoker Assessment/Plan All Active Problems Atrial fibrillation with RVR (Acute) Leucocytosis (Acute)
--- NOTE | 2019-08-02 11:04 | PCM.DC ---
- Discharge Diagnoses Current Active Problems: Current Active and Chronic Problems Atrial fibrillation with RVR (Acute) Leucocytosis (Acute) CKD (chronic kidney disease) stage 3, GFR 30-59 ml/min (Chronic) You will use the following diet at home:: Cardiac Your food should be the consistency of: Regular Your liquids should be the consistency of: Regular/Thin Discharge Activity: Return to Normal Activity Allergies/Adverse Reactions: Allergies No Known Allergies Allergy (Verified 07/31/19 08:20) Medications to take at Discharge Amlodipine Besylate [Norvasc] 10 mg PO DAILY 07/31/19 Atorvastatin Calcium [Lipitor] 80 mg PO QHS 07/31/19 Clopidogrel Bisulfate [Clopidogrel] 75 mg PO DAILY 07/31/19 Docusate Sodium [Stool Softener] 100 mg PO BID 07/31/19 Lisinopril 5 mg PO DAILY 07/31/19 Metoprolol Tartrate 37.5 mg PO BID 07/31/19 Pantoprazole Sodium 40 mg PO DAILY 07/31/19 Apixaban [Eliquis] 5 mg PO BID #60 tab 08/02/19 The following prescriptions were given: Apixaban [Eliquis] 5 mg PO BID #60 tab Transmission Status: Pending to [facility] [facility] Primary Care Physician: [facility] [Primary Care Provider] - Please follow up with your Primary Care Physician in: 1-2 weeks Test Results: Test results from this visit will be discussed in further detail at your follow-up appointment, if applicable. Proposed Discharge Date: 08/02/19
--- NOTE | 2019-08-02 13:33 | DS.PCM_ITS ---
<Roni Pearce - Last Filed: 08/02/19 13:33> Discharge Date and Diagnosis Date of Admission: 07/31/19 Date of Discharge: 08/02/19 - Primary Discharge Diagnosis A. fib with RVR History of stroke with severe aphasia Leukocytosis unclear etiology, infection ruled out Hypertension - Secondary Discharge Diagnosis Chronic Problems CKD (chronic kidney disease) stage 3, GFR 30-59 ml/min (Chronic) Hospital Course and Treatment Imaging Results: RAD/Chest 1 View (Portable) IMPRESSION: No acute abnormality is seen. Echo: Interpretation Summary The estimated ejection fraction is 75 %. Diastolic function is indeterminate. The left atrium is severely enlarged. Moderate (2+) mitral valve insufficiency. Mild tricuspid valve insufficiency. Pulmonary artery systolic pressure is 35-40 mmHg. Mild (1+) aortic valve insufficiency. Operations: None Procedures: 2-D Echocardiogram Summary of Care Provided: The patient is a 74 year old M with past medical history of hypertension, prior stroke with severe ongoing a aphasia, who presented to the emergency room with chest pain for 1 day. He was found by EMS to have A. fib with RVR was given IV metoprolol by squad. Heart rate was greater than 130, he was started on a Cardizem drip and metoprolol and admitted to the PCU on telemetry. He was placed on therapeutic Lovenox as he had an elevated Yan Vascor. He responded well to Cardizem and was eventually able to be weaned off and placed on metoprolol only. Troponin was negative x3. An echocardiogram was obtained which demonstrated an EF of 75%, PASP of 35 to 40 mmHg, 1+ SANCHEZ, 2+ MVI, severe enlargement of the left atrium. The patient converted on Cardizem drip. He remained in sinus rhythm with a well-controlled heart rate overnight after being switched to metoprolol only. I discussed with his daughter whom he lives with his physical ability at home. He has not had any issues with unsteadiness on his feet and is independent, has not been falling. He fell out of bed a few months ago but has not had any issues since. The decision was made to send him on Eliquis given his history of stroke and elevated Yan vascular score. I discussed the risk of bleeding with his daughter whom he lives with. [facility] through the [facility]. He was discharged home in stable condition and will continue metoprolol and Eliquis. Follow-up with [facility] in 1 to 2 weeks. This patient was seen by Roni Pearce PA-C under the supervision of Doctor Ledesma. [] - Physical Exam Vitals/I&O's: Vital Signs Temp Pulse Resp BP Pulse Ox 98.3 F 65 18 126/61 H 95 08/02/19 09:40 08/02/19 10:01 08/02/19 09:40 08/02/19 09:40 08/02/19 09:40 Oxygen Flow Rate (L/min) 2 Oxygen Delivery Method Room Air Weight: 141 lb 8.588 oz Body Mass Index (BMI) 19.8 Intake and Output for Last 24 Hours 07/31/19 08/01/19 08/02/19 23:59 23:59 23:59 Intake Total 2250.83 / 2250.83 2000. / 290 / 290 Output Total 100 / 100 125 / 125 Balance 2150.83 / 2150.83 1876.91 / 1876.91 290 / 290 General: Alert, Oriented x3, Cooperative HEENT: Atraumatic, PERRLA, EOMI, Normocephalic Neck: Supple, No JVD, Negative Carotid Bruits Lungs: Clear to auscultation, Normal air movement Cardiovascular: Regular rate, No murmurs Abdomen: Bowel Sounds Present, Soft, Non Tender Extremities: No edema, Capillary Refill Less than 3 Seconds Skin: No rashes, No breakdown Musculoskeletal: No Tenderness to Palpation of Joints or Extremities Neurological: Cranial nerves II-XII grossly intact, - - aphasia Psych/Mental Status: Normal Affect, Appropriate Laboratory Results 08/02/19 06:45: Sodium 141, Potassium 3.6, Chloride 111 H, Carbon Dioxide 25.0, Anion Gap 5, BUN 15, Creatinine 0.96, Estim Creat Clear Calc 60.37, Est GFR (MDRD) Af Amer 98, Est GFR (MDRD) Non-Af 81, BUN/Creatinine Ratio 15.6, Glucose 88, Calcium 7.8 L Discharge Diet: Low fat/ Low Cholesterol, 2000 mg Sodium Diet Discharge Activity: Return to Normal Activity Home Medications: Medications to take at Discharge Amlodipine Besylate [Norvasc] 10 mg PO DAILY 07/31/19 Atorvastatin Calcium [Lipitor] 80 mg PO QHS 07/31/19 Clopidogrel Bisulfate [Clopidogrel] 75 mg PO DAILY 07/31/19 Docusate Sodium [Stool Softener] 100 mg PO BID 07/31/19 Lisinopril 5 mg PO DAILY 07/31/19 Metoprolol Tartrate 37.5 mg PO BID 07/31/19 Pantoprazole Sodium 40 mg PO DAILY 07/31/19 Apixaban [Eliquis] 5 mg PO BID #60 tab 08/02/19 Following Prescrptions Were Given to Patient: Apixaban [Eliquis] 5 mg PO BID #60 tab Transmission Status: Received by [facility] [[facility] - Please follow up with your Primary Care Physician in: 1-2 weeks Disposition: Home Medical Necessity - Tobacco Use Smoking Status: Former smoker Tobacco Use: Non-smoker Meaningful Use Info Meaningful Use Diagnoses (Choose all that apply): None applicable <Clyde Ledesmaa - Last Filed: 08/04/19 11:59> Discharge Date and Diagnosis - Secondary Discharge Diagnosis Chronic Problems CKD (chronic kidney disease) stage 3, GFR 30-59 ml/min (Chronic) Hospital Course and Treatment Summary of Care Provided: The patient is a 74 year old M with PMHxt of severe aphasia/dysarthria secondary to recurrent CVA who was admitted with chest pain and found to have A. fib with RVR. Patient was started on cardizem drip and admitted. He was converted to NSR and the cardixem drip was switched off and started on metoprolol. 2d-ECHO showed EF 75%, severe enlargement of left atrium. He was maintained on metoprolol and l ovenox and discharged on Eliquis. On the day of discharge, patient was seen and examined. No acute events. Physical Exam: Gen: Comfortable, not pale, not jaundiced, not on oxygen CVS:HS I +II, regular, no murmurs RESP: Diminished at lung bases GI: BS present and normal, soft, nontender, no palpable organs EXT:No edema DIRECTOR OF REHABILITATIVE SERVICES: Severely dysarthric, power is 5/5 in all 4 limbs - Physical Exam Vitals/I&O's: Vital Signs Temp Pulse Resp BP Pulse Ox 98.3 F 65 18 126/61 H 95 03/07/20 09:40 08/02/19 10:01 08/02/19 09:40 08/02/19 09:40 08/02/19 09:40 Oxygen Flow Rate (L/min) 2 Oxygen Delivery Method Room Air Weight: 64.2 kg Body Mass Index (BMI) 19.8 Intake and Output for Last 24 Hours 08/02/19 08/03/19 08/04/19 22:59 23:59 23:59 Intake Total Balance Inpatient E&M: 77024 Disch Hosp
== END 2019-08-02 12:03 | disposition home or self-care (01) | DRG 309 ==
LOC: ED 11:18 → PCU 11:53
PROVIDERS: Physician Assistant; Admitting Provider Internal Medicine; Emergency Provider Emergency Medicine; Referring Provider Internal Medicine; Visit Provider Hospitalist
DX: I48.91 Unspecified atrial fibrillation (principal); I13.0 Hypertensive heart and chronic kidney disease with heart failure and stage 1 through stage 4 chronic kidney disease, or unspecified chronic kidney disease; E87.0 Hyperosmolality and hypernatremia; D72.829 Elevated white blood cell count, unspecified; N18.3 Chronic kidney disease, stage 3 (moderate); Z87.891 Personal history of nicotine dependence; Z95.5 Presence of coronary angioplasty implant and graft; I69.322 Dysarthria following cerebral infarction; I69.320 Aphasia following cerebral infarction
CPT/HCPCS: 36415; 71045; 80048; 80053; 83735; 84443; 84484; 85025; 85610; 85730; 93005; 93306; 97162; 97166; 97530; 97535; 99285; J7030; A4216

== ENCOUNTER 2022-01-02 12:19 | Inpatient (IN) | payer OTHER, SELFPAY ==
[2022-01-02 12:20] VITALS: BP 131/83; PULSE 87; RESP 18; TEMP 36.6; O2SAT 94; BMI 19.7
--- NOTE | 2022-01-02 12:58 | EDS_ITS ---
HPI HPI - Fall History of Present Illness Chief Complaint: Fall Informant: patient and SNF Occured/Mechanism Occurred: Yesterday Pain/Injury Worsened by: Movements Relieved by: Nothing Associated Symptoms Associated Symptoms: Positive for Weakness and Inability to ambulate; Negative for Parasthesias, Loss of consciousness or Amnesia Narrative Narrative: Patient presents after a fall that occurred yesterday at the [facility]. Patient is a poor informant. Staff reports the patient has been feeling weak today and has not wanted to ambulate today. Staff reports that the patient was ambulatory after the fall. Patient denies any paresthesias or weakn ess. Patient is unsure if he hit his head. Patient is on Plavix and apixaban. [facility] Medical History (Updated 01/02/22 @ 15:[address] Rocky Perry DO) Atrial fibrillation with RVR CKD (chronic kidney disease) stage 3, GFR 30-59 ml/min Home Medications amlodipine 10 mg tablet 10 mg PO DAILY bp 07/31/19 [History Last Taken 07/30/19 10:00] atorvastatin 80 mg tablet 80 mg PO QHS cholesterol 07/31/19 [History Last Taken 07/30/19 19:00] clopidogrel 75 mg tablet 75 mg PO DAILY antiplatlet 07/31/19 [History Last Taken 07/30/19 10:00] docusate sodium 100 mg capsule 100 mg PO BID constipation 07/31/19 [History Last Taken 07/30/19 18:00] lisinopril 5 mg tablet 5 mg PO DAILY blood pressure 07/31/19 [History Last Taken 07/30/19 10:00] metoprolol tartrate 25 mg tablet 37.5 mg PO BID heart 07/31/19 [History Last Taken 07/30/19 19:00] pantoprazole 40 mg tablet,delayed release 40 mg PO DAILY gerd 07/31/19 [History Last Taken 07/30/19 10:00] apixaban 5 mg tablet 5 mg PO BID #60 tabs 08/02/19 [Rx Last Taken Unknown] Allergy/AdvReac Type Severity Reaction Status Date / Time No Known Allergies Allergy Verified 07/31/19 08:20 Social History Smoking Status: Former smoker ROS ROS ED Review of Systems ROS Unobtainable: due to mental condition and due to mental status EXAM Physical Exam Const Vital Signs: 01/02/22 12:20 Temperature 97.8 F Temperature Source Temporal Pulse Rate 87 Respiratory Rate 18 Blood Pressure 131/83 H Blood Pressure Mean 99 Pulse Ox 94 Oxygen Delivery Method Room Air Positive well nourished and well developed General Appearance ED: well developed and NAD HEENT Reports moist mucous membranes Neck supple and no JVD Resp normal respiratory effort and clear to auscultation bilaterally Cardio regular rate and regular rhythm GI normal to inspection, nondistended, normoactive bowel sounds and non-tender Palpation: soft Extremity normal to inspection General Extremety ED: Negative for edema or tenderness General Extremity: Negative for edema Neuro CN's II-XII intact bilaterally, no focal motor deficits and no sensory deficits noted Sensorium / Orientation: alert Skin no rashes or lesions noted MDM MDM MDM Narrative Medical decision making narrative: X-rays of the right hip were obtained. There are 3 views. On my interpretation, there is a basicervical fracture of the right femoral neck. There is no dislocation. There is no soft tissue swelling. There are degenerat mercedes changes noted. Radiologist also interpreted the x-rays and agrees. CT scan of the brain was obtained. There is no intracranial bleeding noted. There are chronic involutional changes. This was interpreted by the radiologist and reviewed by myself. CBC shows a mild anemia with hemoglobin of 11.8 and hematocrit 36.2. PT with INR and PTT were essentially within normal limits. Comprehensive metabolic profile showed a slightly elevated BUN of 26. Creatinine was normal. Urinalysis was obtained. There is no evidence of urinary tract infection. Case was discussed with Dr. Funk. He recommended obtaining a CT scan of the right hip. This was obtained. There is a subacute basicervical fracture with resolving hematoma. This was interpreted by the radiologist and reviewed by myself. Lab Data Attestation: I reviewed the patient's lab results. Labs: Laboratory Results - last 24 hr 01/02/22 01/02/22 01/02/22 13:30 13:30 13:30 WBC 9.1 RBC 3.63 L Hgb 11.8 L Hct 36.2 L MCV 99.7 H MCH 32.5 H MCHC 32.6 RDW Std Deviation 44.7 H RDW Coeff of Elizabeth 12.4 Plt Count 398 MPV 9.9 Immature Gran % (Auto) 0.700 Neut % (Auto) 79.8 H Lymph % (Auto) 8.3 L [place] % (Auto) 9.4 Eos % (Auto) 1.2 Baso % (Auto) 0.6 Absolute Neuts (auto) 7.2 Absolute Lymphs (auto) 0.75 L Nucleated RBC % 0 PT 14.4 INR 1.2 APTT 38.1 H Sodium 138 Potassium 3.9 Chloride 107 Carbon Dioxide 27.0 Anion Gap 4 L BUN 26 H Creatinine 1.07 Estim Creat Clear Calc 46.78 Est GFR (MDRD) Af Amer 86 Est GFR (MDRD) Non-Af 71 BUN/Creatinine Ratio 24.3 H Glucose 144 H Calcium 8.7 Total Bilirubin 0.70 AST 47 H ALT 49 Alkaline Phosphatase 88 Troponin I High Sens 9 Total Protein 6.4 Albumin 2.9 L Globulin 3.5 Albumin/Globulin Ratio 0.8 L Urine Color Urine Clarity Urine pH Ur Specific [place] Urine Protein Urine Glucose (UA) Urine Ketones Urine Occult Blood Urine Nitrite Urine Bilirubin Urine Urobilinogen Ur Leukocyte Esterase Urine RBC Urine WBC Ur Squamous Epith Cells Urine Bacteria Urine Mucus 01/02/22 13:46 WBC RBC Hgb Hct MCV MCH MCHC RDW Std Deviation RDW Coeff of Elizabeth Plt Count MPV Immature Gran % (Auto) Neut % (Auto) Lymph % (Auto) [place] % (Auto) Eos % (Auto) Baso % (Auto) Absolute Neuts (auto) Absolute Lymphs (auto) Nucleated RBC % PT INR APTT Sodium Potassium Chloride Carbon Dioxide Anion Gap BUN Creatinine Estim Creat Clear Calc Est GFR (MDRD) Af Amer Est GFR (MDRD) Non-Af BUN/Creatinine Ratio Glucose Calcium Total Bilirubin AST ALT Alkaline Phosphatase Troponin I High Sens Total Protein Albumin Globulin Albumin/Globulin Ratio Urine Color Yellow Urine Clarity Clear Urine pH 5.0 Ur Specific [place] 1.030 Urine Protein 30 H Urine Glucose (UA) Normal Urine Ketones Negative Urine Occult Blood 50 H Urine Nitrite Negative Urine Bilirubin Negative Urine Urobilinogen 1 H Ur Leukocyte Esterase 25 H Urine RBC 0-5 SEEN Urine WBC 0-5 SEEN Ur Squamous Epith Cells 0 SEEN Urine Bacteria 1+ Urine Mucus 0 SEEN Radiography Diagnostic Testing: Clinical Impression(s) from Imaging Studies Brain CT 01/02/22 13:02 IMPRESSION: Chronic involutional changes of the brain. Partial opacification of the left sphenoid sinus. Electronically Signed: Beau Martinez MD at 14:25 EDT , Hip/Pelvis X-Ray 01/02/22 14:00 IMPRESSION: Basilar cervical fracture of the proximal right femur with cephalic migration of the distal femoral component. Electronically Signed: Beau Martinez MD at 14:26 EDT , Lower Extremity CT 01/02/22 14:58 IMPRESSION: Subacute basicervical fracture with resolving hematoma and cephalic migration of the distal femoral component. Electronically Signed: Beau Martinez MD at 15:32 EDT , EKG Initial EKG: Attestation: I personally reviewed and interpreted this EKG as follows: Interpretation: Sinus Rhythm (83) and No Acute Injury Pattern Prior EKG tracings: available for review Prior: Changed (Previous EKG on 07/31/2019 shows atrial fibrillation with rapid ventricular response at 130. This has resolved.) Discharge Plan Triage Chief Complaint: Fall Other Complaint: Fatigue ED Provider: Rocky Perry Dx/Rx/DC Orders Clinical Impression: Fracture of hip, right, closed, History of stroke, Anemia Prescriptions: No Action atorvastatin 80 MG tablet 80 mg PO QHS clopidogrel 75 MG tablet 75 mg PO DAILY pantoprazole 40 MG tablet,delayed release (DR/EC) 40 mg PO DAILY docusate sodium 100 MG capsule 100 mg PO BID lisinopril 5 MG tablet 5 mg PO DAILY amlodipine 10 MG tablet 10 mg PO DAILY metoprolol tartrate 25 MG tablet 37.5 mg PO BID apixaban 5 MG tablet 5 mg PO BID Qty: 60 0RF [facility] [Primary Care Provider] - Disposition Disposition: Acute Care Hospital [facility]
--- NOTE | 2022-01-02 13:02 | CT_ITS ---
STUDY: CT BRAIN WITHOUT CONTRAST REASON FOR EXAM: Male, 76 years old. History of fall. RADIATION DOSAGE (If Supplied By Facility): CTDIvol = ( 44.99 ) mGy, DLP = ( 812.98 ) mGycm TECHNIQUE: Transaxial CT imaging of the brain was performed without administration of intravenous contrast material. Individualized dose optimization techniques were used for this CT. COMPARISON: No relevant priors. FINDINGS: Normal soft tissue structures. Normal calvarium. There is moderate cerebral atrophy with widening of the extra-axial spaces and ventricular dilatation. There are areas of decreased attenuation within the white matter tracts of the supratentorial brain, consistent with microvascular disease changes. Encephalomalacia is seen in the posterior left temporal parietal lobes in keeping with prior infarction. No significant mass effect is seen. There are small punctate calcifications of the basal ganglia which are seen in the aging brain as a normal variant. Normal brainstem. Normal cerebellum. There is no intracranial hemorrhage. There are no findings of an acute ischemic infarction. Atherosclerotic calcification of the cavernous portions of the internal carotid arteries bilaterally. Partial opacification of the left sphenoid sinus. CT/Brain/Head without Contrast IMPRESSION: Chronic involutional changes of the brain. Partial opacification of the left sphenoid sinus. Electronically Signed: Beau Martinez MD at 14:25 EDT ,
--- NOTE | 2022-01-02 13:04 | EKG12_ITS ---
Test Reason : fall Blood Pressure : / mmHG Vent. Rate : 083 BPM Atrial Rate : 083 BPM P-R Int : 174 ms QRS Dur : 078 ms QT Int : 360 ms P-R-T Axes : 058 016 015 degrees QTc Int : 423 ms Normal sinus rhythm Normal ECG Confirmed by AMX BUSTOS MD ([id number]), scientific publications editor TUSHAR LOONEY ([id number]) on 01/03/2022 9:29:39 AM Referred By: Confirmed By:MAX BUSTOS MD
[2022-01-02 13:41] LABS: Absolute Lymphocyte Count 0.75 X10^3/uL (0.83-4.51); Absolute Neutrophil Count 7.2 X10^3/uL (2.0-7.7); Basophil# 0.05 X10^3/uL; Basophil% 0.6 % (0-1); Eosinophil# 0.11 X10^3/uL; Eosinophils% 1.2 % (0-5); Hematocrit 36.2 % (40-54); Hemoglobin 11.8 g/dL (13.0-16.5); Lymphocyte # 0.75 X10^3/ul (0.83-4.51); Lymphocyte % 8.3 % (19-41); Mean Corp Hgb Conc 32.6 g/dL (32-36); Mean Corpuscular Hgb 32.5 pg (27.0-32.0); Mean Corpuscular Volume 99.7 fL (80-94); Mean Platelet Vol. 9.9 fl (6.2-12.0); Monocyte# 0.85 X10^3/uL; Monocyte% 9.4 % (0-10); NRBC Flagged by Analyzer 0 % (0-5); Neutrophil # 7.24 X10^3/uL (2.7-7.7); Neutrophil % 79.8 % (47-70); Platelet Count 398 K/mm3 (150-450); RBC Distribution Width CV 12.4 % (11.6-14.6); RBC Distribution Width SD 44.7 fl (35.1-43.9); Red Blood Count 3.63 M/mm3 (4.6-6.2); White Blood Count 9.1 K/mm3 (4.4-11.0)
[2022-01-02 13:48] LABS: International Normalized Ratio 1.2; Prothrombin Time (Protime)PT. 14.4 SECONDS (11.7-14.9)
[2022-01-02 13:49] LABS: Partial Thromboplast Time 38.1 Seconds (24.1-36.2)
[2022-01-02 13:55] LABS: Mucous, Urine 0 SEEN /hpf (<or=2+); Squamous Epithelial Cells - UA 0 SEEN /hpf (0-5)
[2022-01-02 13:56] LABS: ALB/GLOB Ratio 0.8 RATIO (0.9-2.4); AST(SGOT) 47 U/L (15-37); Alanine Aminotransfer ALT/SGPT 49 U/L (16-61); Albumin, Serum 2.9 g/dL (3.2-5.0); Alkaline Phosphatase 88 U/L (45-117); Anion Gap 4 (5-15); BUN 26 mg/dL (7-18); BUN/Creat Ratio 24.3 RATIO (10-20); Calcium,Total 8.7 mg/dL (8.5-10.1); Chloride 107 mmol/L (98-107); Creatinine, Serum 1.07 mg/dL (0.70-1.30); EST Glomerular Filtration Rate 71 mL/min (>60); Est Glom Filt Rate - Afr Amer 86 mL/min (>60); Estimated Creatinine Clearance 46.78 ml/min; Globulin 3.5 g/dL (2.2-4.2); Glucose 144 mg/dL (74-106); Potassium 3.9 mmol/L (3.5-5.1); Protein, Total 6.4 g/dL (6.4-8.2); Sodium Level 138 mmol/L (136-145); Troponin-I HS 9 pg/mL (3.0-78.0)
[2022-01-02 13:56] LABS: Color, Urine Yellow (Yellow); Glucose, Dipstick Normal (Normal); Ketone-Dipstick Negative (Negative); Leukocyte Esterase-Dipstick 25 /ul (Negative); Nitrite-Dipstick Negative (Negative); Occult Blood-Urine 50 /ul (Negative); Protein-Dipstick 30 mg/dl (Negative); Urine Bilirubin Dipstick Negative (Negative); Urine Clarity Clear (Clear); Urine Urobilinogen 1 mg/dl (Normal)
--- NOTE | 2022-01-02 14:00 | RAD_ITS ---
STUDY: X-RAY - PELVIS AND RIGHT HIP REASON FOR EXAM: Male, 76 years old. Injury/Pain TECHNIQUE: 3 views of the pelvis and hip. COMPARISON: None. FINDINGS: Moderate amount of fecal material is seen in the colon. Normal bilateral iliac wings, sacroiliac joints and visualized sacrum. Normal bilateral superior and inferior pubic rami. There is narrowing with sclerosis of the pubic symphysis. Normal bilateral ischial tuberosities. There is evidence of a right basilar cervical fracture with a cephalic migration of the distal femoral component. RAD/HIP, UNI W/ Pelvis 2-3 Views IMPRESSION: Basilar cervical fracture of the proximal right femur with cephalic migration of the distal femoral component. Electronically Signed: Beau Martinez MD at 14:26 EDT ,
[2022-01-02 14:02] LABS: Bacteria 1+ /hpf (None Seen); Red Blood Cells-Urine 0-5 SEEN /hpf (0-5); White Blood Cells 0-5 SEEN /hpf (0-5)
--- NOTE | 2022-01-02 14:58 | CT_ITS ---
STUDY: CT SCAN HIP RIGHT REASON FOR EXAM: Male, 76 years old. Right hip fracture RADIATION DOSAGE (If Supplied By Facility): CTDIvol = ( 15.35 ) mGy, DLP = ( 422.84 ) mGycm. Individualized dose optimization techniques were used for this CT.? TECHNIQUE: Multiple axial tomographic images were obtained without intravenous contrast menstruation. Coronal and sagittal reconstruction was obtained as well. COMPARISON: Comparison is made with prior hip radiographs done earlier in the day. FINDINGS: There is evidence of a basilar cervical fracture of the proximal right femoral neck with cephalic and lateral migration of the distal femoral component. This appears to be subacute in nature. Calcific densities are seen within the soft tissues surrounding the hip joint. This may represent myositis ossificans. There is evidence of a focal soft tissue density along the anterior aspect of the hip joints suggestive of a resorbing hematoma. CT/Extremity Lower without Contra IMPRESSION: Subacute basicervical fracture with resolving hematoma and cephalic migration of the distal femoral component. Electronically Signed: Beau Martinez MD at 15:32 EDT ,
--- NOTE | 2022-01-02 16:02 | HP.PCM.HOS_ITS ---
HPI - General General Date of Admission: 01/02/22 Date of Service: 01/02/22 Chief Complaint: Fall, R hip pain. HPI Narrative The patient is a 76 y/o M w/ PMHx: CAD s/p PCI, Hx CVA w/ severe associated dysarthria residually, HTN, HLD, GERD, CKD stage III unclear subtype, Chronic macrocytic anemia, PAF who presents to the [facility] [place] ED on 01/02/22 with history of mechanical fall at his home the day prior, where he resides with his niece and her family who is her POA, noted to have fallen onto his right hip and potentially also landing on his right knee but only noted feeling weak following the injury and primarily complained of R knee pain at that time with ongoing pain, ~ 4-5/10 at rest, worse with any usage attempts despite icing and conser vative treatments at home prompting ED evaluation. Family notes that last intake of plavix and apixaban reigmen was 01/01/22 AM only with no dose in the evening or any on day of presentation. Work-up in the ED included T97.8, heart rate 87, BP 131/83, respiratory rate 18, 94% on room air, CBC with WC 9.1, hemoglobin 0.8, platelets 398 with lymphopenia noted, coags with PTT 38.1 otherwise unremarkabl e, CMP with BUN/creat 26/1.07, glucose 144, AST is 47 otherwise hepatic profile not marked appearing, troponin 9, urinalysis with evidence of dehydration with negative nitrite, leukocyte Estrace 25, no urine to BCs or RBCs, rapid COVID antigen negative, CT of the brain with chronic involutional changes of the brain with a partial opacification left sphenoid sinus with encephalomalacia seen in the posterior left temporoparietal lobes consistent with prior infarction, plain film of the right hip and pelvis of the basilar cervical fracture the proximal right femur with cephalic migration of the distal femoral component, follow-up CT right lower extremity and hip with a subacute basicervical fracture with resolving hematoma and cephalic migration of the distal femoral component, EKG with sinus rhythm with no acute evidence of ischemia, EKG with sinus rhythm with no acute evidence of ischemia with most recent prior noted atrial fibrillation with RVR during prior to presentation. ED discussed case with orthopedic surgeon Dr. Funk. [facility] Medical History (Updated 01/02/22 @ 21:[address] Alma Crowe MD) CAD (coronary artery disease) CKD (chronic kidney disease) stage 3, GFR 30-59 ml/min Constipation Dementia Hypertension PAF (paroxysmal atrial fibrillation) Sleep apnea Stroke/cerebrovascular accident Home Medications amlodipine 10 mg tablet 10 mg PO DAILY bp 07/31/19 [History Last Taken 01/01/22] atorvastatin 80 mg tablet 80 mg PO QHS cholesterol 07/31/19 [History Last Taken 01/01/22] clopidogrel 75 mg tablet 75 mg PO DAILY antiplatlet 07/31/19 [History Last Taken 01/01/22] docusate sodium 100 mg capsule 100 mg PO BID constipation 07/31/19 [History Last Taken 1 Week Ago ~12/26/21] lisinopril 5 mg tablet 5 mg PO DAILY blood pressure 07/31/19 [History Last Taken 01/01/22] metoprolol tartrate 25 mg tablet 37.5 mg PO BID heart 07/31/19 [History Last Taken 01/01/22] pantoprazole 40 mg tablet,delayed release 40 mg PO DAILY gerd 07/31/19 [History Last Taken 01/01/22] apixaban 5 mg tablet 5 mg PO BID blood thinner 01/02/22 [History Last Taken 01/01/22] Allergy/AdvReac Type Severity Reaction Status Date / Time No Known Allergies Allergy Verified 07/31/19 08:20 Family History (Updated 01/02/22 @ 21:[address] Alma Crowe MD) Mother Heart disease Hypertension HLD (hyperlipidemia) Father Chemical poisoning due to ingestion of food Reported as a john, accidental poisoning via ingestion chemical agents. Surgical History (Updated 01/02/22 @ 21:[address] Alma Crowe MD) History of coronary artery stent placement History of left knee surgery Social History (Updated 01/02/22 @ 21:[address] Alma Crowe MD) household members: other details: Lives with his niece and her family, she is his POA. Smoking Status: Never smoker alcohol intake: never substance use type: does not use ROS ROS Narrative Admission Review of Systems: CONSTITUTIONAL: No weight loss, fever, chills, + weakness or fatigue. HEENT: Eyes: No visual loss, blurred vision, double vision or yellow sclerae. Ears, Nose, Throat: No hearing loss, sneezing, congestion, runny nose or sore throat. SKIN: No rash or itching, lesions, wounds. CARDIOVASCULAR: No chest pain, chest pressure or chest discomfort, palpitations, edema, orthopnea, syncopal events. RESPIRATORY: No shortness of breath, cough or sputum, wheezing, hemoptysis. GASTROINTESTINAL: No anorexia, nausea, vomiting or diarrhea, abdominal pain, melena, BRBPR. GENITOURINARY: No dysuria, frequency, urgency or retention. NEUROLOGICAL: + Hx CVA w/ severe dysarthria. No headache, dizziness, syncope, paralysis, ataxia, numbness or tingling in the extremities, focal weakness, change in bowel or bladder control, seizure. MUSCULOSKELETAL: + muscle, back pain, joint pain or stiffness. HEMATOLOGIC: + anemia, bleeding or bruising. LYMPHATICS: No enlarged nodes. No history of splenectomy. PSYCHIATRIC: No history of depression or anxiety. ENDOCRINOLOGIC: No reports of sweating, cold or heat intolerance. No polyuria or polydipsia. ALLERGIES: No history of asthma, hives, eczema or rhinitis. Vital Signs Vital Signs Vital Signs: 01/02/22 12:20 Temperature 97.8 F Temperature Source Temporal Pulse Rate 87 Respiratory Rate 18 Blood Pressure 131/83 H Blood Pressure Mean 99 Pulse Ox 94 Oxygen Delivery Method Room Air Weight Weight: 126 lb 1.671 oz Body Mass Index (BMI) 19.7 Physical Exam Narrative Physical Examination: General: Awake, alert, oriented to self and place and can answer some questions but very difficult exam secondary to severe dysarthria, remains cooperative and follows commands, laying in the ED bed, notes he is uncomfortable but cannot elicit a pain number. Skin: Normal color, normal turgor, no icterus, no cyanosis except occasional staged ecchymoses. HEENT: AT/NC, EOMI, PERRLA, dry MM, no carotid bruits or JVD noted. Lungs: Diminished, greater bases, moderate effort, no rales, ronchi or wheezing. Heart: Currently regular rate and rhythm; no gallop, rub audible. Abdomen: Soft, center habitus, NTTP, ND, mildly hyperactive BS, no HSM. Extremities: No cyanosis, no clubbing, right lower extremity externally rotated, peripheral pulses intact, pain with any movement of the extremity noted as expected Neurological: Patient awake, alert, oriented as noted, cognitive function decreased baseline with prior significant CVA with significant dysarthria, appears cysts consistent per family report with his baseline intact status; pupils equally reactive to light and accommodation, cranial nerves grossly normal, moving all 4 extremities except expected limitation right lower extremity given recent fall with right hip fracture, strength accordingly severely global decreased. Psychiatric: Affect appears fatigued, soft-spoken when he does attempt to speak, no acute evidence of depressive or anxiety feelings. Results Lab / Micro Data Result Diagrams: 01/02/22 13:30 01/02/22 19:00 Labs: Laboratory Results - last 24 hr 01/02/22 13:30: WBC 9.1, RBC 3.63 L, Hgb 11.8 L, Hct 36.2 L, MCV 99.7 H, MCH 32.5 H, MCHC 32.6, RDW Std Deviation 44.7 H, RDW Coeff of Elizabeth 12.4, Plt Count 398, MPV 9.9, Immature Gran % (Auto) 0.700, Neut % (Auto) 79.8 H, Lymph % (Auto) 8.3 L, Murray % (Auto) 9.4, Eos % (Auto) 1.2, Baso % (Auto) 0.6, Absolute Neuts (auto) 7.2, Absolute Lymphs (auto) 0.75 L, Nucleated RBC % 0 01/02/22 13:30: PT 14.4, INR 1.2, APTT 38.1 H 01/02/22 13:30: Sodium 138, Potassium 3.9, Chloride 107, Carbon Dioxide 27.0, Anion Gap 4 L, BUN 26 H, Creatinine 1.07, Estim Creat Clear Calc 46.78, Est GFR (MDRD) Af Amer 86, Est GFR (MDRD) Non-Af 71, BUN/Creatinine Ratio 24.3 H, Glucose 144 H, Calcium 8.7, Total Bilirubin 0.70, AST 47 H, ALT 49, Alkaline Phosphatase 88, Troponin I High Sens 9, Total Protein 6.4, Albumin 2.9 L, Globulin 3.5, Albumin/Globulin Ratio 0.8 L 01/02/22 13:46: Urine Color Yellow, Urine Clarity Clear, Urine pH 5.0, Ur Specific [place] 1.030, Urine Protein 30 H, Urine Glucose (UA) Normal, Urine Ketones Negative, Urine Occult Blood 50 H, Urine Nitrite Negative, Urine Bilirubin Negative, Urine Urobilinogen 1 H, Ur Leukocyte Esterase 25 H, Urine RBC 0-5 SEEN, Urine WBC 0-5 SEEN, Ur Squamous Epith Cells 0 SEEN, Urine Bacteria 1+, Urine Mucus 0 SEEN Micro: Microbiology 01/02/22 13:22 Nasal Secretion SARS-CoV-2 Antigen (Rapid) - Final Radiology Impression Brain CT 01/02/22 13:02 IMPRESSION: Chronic involutional changes of the brain. Partial opacification of the left sphenoid sinus. Electronically Signed: Beau Martinez MD at 14:25 EDT , Hip/Pelvis X-Ray 01/02/22 14:00 IMPRESSION: Basilar cervical fracture of the proximal right femur with cephalic migration of the distal femoral component. Electronically Signed: Beau Martinez MD at 14:26 EDT , Lower Extremity CT 01/02/22 14:58 IMPRESSION: Subacute basicervical fracture with resolving hematoma and cephalic migration of the distal femoral component. Electronically Signed: Beau Martinez MD at 15:32 EDT , Assessment & Plan Assessment/Plan (1) Fracture of hip, right, closed: PLAN: Plan The patient is a 76 y/o M w/ PMHx: CAD s/p PCI, Hx CVA w/ severe associated dysarthria residually, HTN, HLD, GERD, CKD stage III unclear subtype, Chronic macrocytic anemia, PAF who presents to the [facility] [place] ED on 01/02/22 with history of mechanical fall at his home the day prior, where he resides with his niece and her family who is her POA, noted to have fallen onto his right hip and potentially also landing on his right knee but only noted feeling weak following the injury and primarily complained of R knee pain at that time with ongoing pain, ~ 4-5/10 at rest, worse with any usage attempts despite icing and conservative treatments at home prompting ED evaluation. #1. General debility, R hip pain s/p mechanical fall w/ subacute basicervical fracture with resolving hematoma and cephalic migration of the distal femoral component: Orthopedic surgery consulted from ED. Will admit to [facility], maintain NPO after midnight for planned 01/03/[address] Funk, continue gentle IVFs, UA, UCx, bahena placement, monitor I/Os, frequent positioning, fall precautions, pain, anti-emetic regimen. PT/OT following operative intervention. CM consulted for discharge planning. Per NSQIP patient is elevated risk for operative intervention and perioperative events; however, discussed at length with patient and POA. Currently he is DNR- CC status and they are requesting this intervention specifically for comfort only. They understand risks and understand he is not an ideal surgical candidate but prefer to defer any further pre-operative assessments and want to proceed to OR for quickest comfort possible. Discussed with Dr. Funk who is aware and will plan OR 01/03/22. #2. Hyperglycemia: Admission glucose 144, likely stress response, will obtain hemoglobin A1c to be cautious. #3. Hx CVA: Patient with significant CVA history with severe dysarthria residually, will hold next as well as apixaban regimen given acute presentation with planned OR as noted, resume once cleared, continue hypertensive regimen, statin therapy, not on any diabetic regimen but A1c requested as noted. #4. Chronic macrocytic anemia: Admission hemoglobin 11.8, MCV 99.7, baseline noted prior 11.2 08/01/2019 but this lab is remote, will continue to monitor. #5. Hypertension: Continue home regimen including metoprolol, lisinopril, Norvasc with hold parameters as needed, PRN hydralazine. #6. Hyperlipidemia: Continue home statin regimen. #7. PAF: We will continue patient home metoprolol regimen, holding anticoagulant therapy with as noted last dosed 01/02/2020 2 AM. Resume once amenable per orthopedic surgery following interventions. #8. Chronic Kidney Disease Stage III, unclear subtype: Admission BUN/Cr 26/1.07, baseline renal function most recently prior 0.9-1.1, repeat BMP in AM. #9. CAD: Status post PCI, as noted temporarily holding patient Plavix and apixaban, continue metoprolol, lisinopril, statin therapy. #10. DVT prophylaxis: SCDs, holding home apixaban, last dose 01/01/22 AM. #11. CODE status: Patient SUHA is his niece who is present and living will is currently in place. Discussed CODE status at length including difference between FULL code, DNR-CCA and DNR-CC status. Following discussions about the differences in these status, requested DNRCC status with focus solely on comfort with request for transition to OR with surgical risk discussed but deferred any further preoperative evaluations in favor of comfort only with risk understood. Advanced Care Planning Face to Face Time: 16 minutes. Charges/Coding Visit Charges Inpatient E&M: 54977 Init Hosp L3 Procedures Hospitalists Procedures: 81856 Advncd Care Plan 30 Min
--- NOTE | 2022-01-02 16:07 | NURSING ---
CALLED JOSEPH GALVEZ AND LEFT MESSAGE
--- NOTE | 2022-01-02 16:26 | NURSING ---
MED SURG WHITE RT HIP FX
[2022-01-02 16:35] LABS: Magnesium 2.5 mg/dL (1.6-2.6)
--- NOTE | 2022-01-02 16:38 | NURSING ---
MED SURG WHITE RT HIP FX
[2022-01-02 16:50] VITALS: BMI 17.9
--- NOTE | 2022-01-02 17:01 | NURSING ---
CALLED LIZZETTE. LEFT MESSAGE ON [employer] PHONE. PATIENT NAME, DATE OF , DIAGNOSIS AND ROOM NUMBER IN [facility].
[2022-01-02 17:43] VITALS: BP 149/74; PULSE 72; RESP 20; TEMP 36.7; O2SAT 94
[2022-01-02 19:18] VITALS: BP 137/54; PULSE 76; RESP 15; TEMP 37.3; O2SAT 98
[2022-01-02 19:24] LABS: ALB/GLOB Ratio 0.8 RATIO (0.9-2.4); AST(SGOT) 49 U/L (15-37); Alanine Aminotransfer ALT/SGPT 52 U/L (16-61); Albumin, Serum 2.8 g/dL (3.2-5.0); Alkaline Phosphatase 85 U/L (45-117); Anion Gap 5 (5-15); BUN 23 mg/dL (7-18); BUN/Creat Ratio 24.3 RATIO (10-20); Calcium,Total 8.6 mg/dL (8.5-10.1); Chloride 108 mmol/L (98-107); Creatinine, Serum 0.94 mg/dL (0.70-1.30); EST Glomerular Filtration Rate 82 mL/min (>60); Est Glom Filt Rate - Afr Amer 99 mL/min (>60); Globulin 3.4 g/dL (2.2-4.2); Glucose 102 mg/dL (74-106); Protein, Total 6.2 g/dL (6.4-8.2); Sodium Level 140 mmol/L (136-145)
[2022-01-02] MEDS: CHLORHEXIDINE GLUC 2% CLOTH 1 EACH TOWELETTE TOPICAL (20:30)
[2022-01-02] MEDS: 0.9% Saline Lock 10 ML Syringe IV (21:11)
[2022-01-02 21:12] VITALS: BP 126/54; PULSE 73
[2022-01-02] MEDS: Atorvastatin Calcium 80 MG Tablet PO (21:12)
[2022-01-02] MEDS: Metoprolol Tartrate 25 MG Tablet 37.5 MG PO (21:12)
[2022-01-02] MEDS: Docusate Sodium 100 MG Capsule PO (21:12)
[2022-01-03] VITALS (15 sets, daily range): BP systolic 98–144; BP diastolic 40–70; PULSE 37–79; RESP 14–16; TEMP 36.2–37.3; O2SAT 95–100; BMI 18.0
[2022-01-03 01:21] LABS: Bedside Glucose 96 mg/dL (74-106)
--- NOTE | 2022-01-03 04:29 | NURSING ---
01/02/22@ 1999 and 01/03/22@ 0200 Charted jaundiced on wrong patient.
[2022-01-03 06:28] LABS: Absolute Lymphocyte Count 1.12 X10^3/uL (0.83-4.51); Absolute Neutrophil Count 5.8 X10^3/uL (2.0-7.7); Basophil# 0.05 X10^3/uL; Basophil% 0.6 % (0-1); Eosinophil# 0.33 X10^3/uL; Hematocrit 30.3 % (40-54); Hemoglobin 10.2 g/dL (13.0-16.5); Lymphocyte # 1.12 X10^3/ul (0.83-4.51); Lymphocyte % 13.6 % (19-41); Mean Corp Hgb Conc 33.7 g/dL (32-36); Mean Corpuscular Hgb 32.9 pg (27.0-32.0); Mean Corpuscular Volume 97.7 fL (80-94); Mean Platelet Vol. 9.7 fl (6.2-12.0); Monocyte# 0.96 X10^3/uL; Monocyte% 11.6 % (0-10); NRBC Flagged by Analyzer 0 % (0-5); Neutrophil # 5.76 X10^3/uL (2.7-7.7); Neutrophil % 69.8 % (47-70); Platelet Count 379 K/mm3 (150-450); RBC Distribution Width CV 12.4 % (11.6-14.6); RBC Distribution Width SD 43.8 fl (35.1-43.9); White Blood Count 8.3 K/mm3 (4.4-11.0)
[2022-01-03 06:56] LABS: ALB/GLOB Ratio 0.8 RATIO (0.9-2.4); AST(SGOT) 39 U/L (15-37); Alanine Aminotransfer ALT/SGPT 46 U/L (16-61); Albumin, Serum 2.5 g/dL (3.2-5.0); Alkaline Phosphatase 74 U/L (45-117); Anion Gap 5 (5-15); BUN 21 mg/dL (7-18); BUN/Creat Ratio 23.3 RATIO (10-20); Calcium,Total 8.1 mg/dL (8.5-10.1); Chloride 107 mmol/L (98-107); EST Glomerular Filtration Rate 87 mL/min (>60); Est Glom Filt Rate - Afr Amer 105 mL/min (>60); Estimated Creatinine Clearance 50.56 ml/min; Globulin 3.1 g/dL (2.2-4.2); Glucose 96 mg/dL (74-106); Potassium 3.9 mmol/L (3.5-5.1); Protein, Total 5.6 g/dL (6.4-8.2); Sodium Level 139 mmol/L (136-145)
[2022-01-03 07:33] LABS: Hemoglobin A1c 4.9 % (3.8-5.6)
[2022-01-03] MEDS: Metoprolol Tartrate 25 MG Tablet 37.5 MG PO ×2 (08:24→21:18)
[2022-01-03] MEDS: amLODIPine 10 MG Tablet PO (08:25)
[2022-01-03] MEDS: Lisinopril 5 MG Tablet PO (08:25)
--- NOTE | 2022-01-03 10:28 | CASEMGMT ---
RN CM in to pt room, pt being bathed by DRIER OPERATOR HELPER. Pt with dementia. TC to pt niece to complete assessment. She states she is almost at the hospital. She will ask for the RN ANABELA when she arrives.
--- NOTE | 2022-01-03 12:00 | FEM_PTH ---
PATIENT: DARCIE POMPA LOC: [facility] U#:[id number] AGE/SX: 76/M ROOM: [facility] RE01/02/[address]: Dr. Zoila Sierra MD : 1945 BED: 1 DIS: 01/09/2022 SPEC #: [id number] RECD: 01/03/22 14:39 STATUS: SHAYNA REQ #: [id number] RENATO: 01/03/22 12:[address]: Jayson Funk DEPT: SURGICAL PATHOLOGY RECD BY: Germaine Carvalho ENTERED: 01/04/22 08:20 SP TYPE: FEM HEAD OTHR DR: MD Dr. Amy Davis MD Dr. Steven Widmer, MD [facility] Tissues: Femoral region, NOS Procedures: Decalcification bone/plaque Surgery Specimen Level V Comments: @ Ordering doctor for DEC edited from to DR.SWIDME Harvey by ROMY at 01/04/22 1419 @ Ordering doctor for SUV edited from to DR.SWIDME Harvey by ROMY at 01/04/22 1419 @ Submitting doctor edited from to DR.SWIDME Harvey by ROMY at 01/04/22 1419 HEADER OPERATION: Right hip hemiarthroplasty PRE-OP DIAGNOSIS: Closed fracture of right hip TISSUE SUBMITTED: Right femoral head MICROSCOPIC DIAGNOSIS Right femoral head, hemiarthroplasty: Femoral head with focal area of hemorrhage, clinically fracture hip. MARCELLO:andrae 01/09/2022 MICROSCOPIC DESCRIPTION Slides are reviewed. GROSS DESCRIPTION Received is one container labeled with the patient's name and designated right femoral head. The specimen consists of a moe femoral head measuring 4.5 x 4.5 x 4 cm. The articular surface is smooth. Resection margin is irregular and hemorrhagic. No soft tissue is identified. Aircraft Armament [employer] sections are submitted in three cassettes after decalcification. / MARCELLO:andrae 01/04/2022 TC:5 CPT: 21658, 10812
--- NOTE | 2022-01-03 12:20 | CON.PCM_ITS ---
Assessment & Plan Assessment/Plan (1) Fracture of hip, right, closed: PLAN: Natural history of the disease process and treatment options were discussed with the family. Patient's niece who is power of document review attorney was at bedside. At this point based on fracture pattern as well as radiographs and CT scan review it does appear that this is a subacute fracture which means it likely happened a week ago. Based on this as well as the displacement and fracture pattern I recommended a hemiarthroplasty is an appropriate treatment plan. Nonoperative treatment was discussed however based on patient's immobility and discomfort family did wish to proceed despite potential risks of surgery. Risk discussed the family include but are not limited to blood loss, DVTs, PEs, nervous damage, infection, the risk of anesthesia include loss of life, leg length discrepancies, instability and fractures. At this time patient is also malnourished I recommended Ensure shakes on a regular basis to help with adequate healing and decrease negative surgical outcomes. Additionally patient has anemia they will need to be treated appropriately however, based on the indications for surgery I recommended we proceed with surgery. He has been off his anticoagulants for 48 hours and is appropriate at this time to proceed with surgical intervention. Has been cleared by medicine and anesthesia has evaluated the patient. At this time agreed to proceed with surgery today. Antibiotics on-call to the operating room and appropriate consent is obtained. (2) Anemia: PLAN: Per primary service (3) Atrial fibrillation with RVR: PLAN: Anticoagulants held for last 48 hours (4) Malnourished: PLAN: Shakes, consult nutrition service (5) Dementia: HPI Consult Data Date of Consult: 01/03/22 HPI Narrative Reason for Consultation: Right hip pain HPI Narrative: DARCIE POMPA, is a 76 M with significant medical history including dementia and cardiac disease who presents right hip pain. Patient lives at home with his niece who is his power of document review attorney. She is at bedside with him. She provides most of the history. Patient has been having issues with suppressed appetite and his family notes that he has been getting weaker over the last several months. Family notes that the patient does usually shuffle around the house unassisted. His upper extremity strength is limited and they report that he does not use a walker or cane. He did fall last week roughly 1 week ago and they note that he has had some decrease in overall activity since that time. However he fell again on Sunday and has been unable to bear weight. This is why they brought him into the emergency department. He takes Plavix and Eliquis both of which were last dosed on Sunday morning. Overall he is mainly nonverbal and hears poorly and it offers little history. He is unable to fully characterize or rate his pain. He rest comfortably in bed and his pain is increased with motion. [facility] Medical History CAD (coronary artery disease) CKD (chronic kidney disease) stage 3, GFR 30-59 ml/min Constipation Dementia Hypertension PAF (paroxysmal atrial fibrillation) Sleep apnea Stroke/cerebrovascular accident Home Medications amlodipine 10 mg tablet 10 mg PO DAILY bp 07/31/19 [History Last Taken 01/01/22] atorvastatin 80 mg tablet 80 mg PO QHS cholesterol 07/31/19 [History Last Taken 01/01/22] clopidogrel 75 mg tablet 75 mg PO DAILY antiplatlet 07/31/19 [History Last Taken 01/01/22] docusate sodium 100 mg capsule 100 mg PO BID constipation 07/31/19 [History Last Taken 1 Week Ago ~12/26/21] lisinopril 5 mg tablet 5 mg PO DAILY blood pressure 07/31/19 [History Last Taken 01/01/22] metoprolol tartrate 25 mg tablet 37.5 mg PO BID heart 07/31/19 [History Last Taken 01/01/22] pantoprazole 40 mg tablet,delayed release 40 mg PO DAILY gerd 07/31/19 [History Last Taken 01/01/22] apixaban 5 mg tablet 5 mg PO BID blood thinner 01/02/22 [History Last Taken 01/01/22] Allergy/AdvReac Type Severity Reaction Status Date / Time No Known Allergies Allergy Verified 07/31/19 08:20 Family History Mother Heart disease Hypertension HLD (hyperlipidemia) Father Chemical poisoning due to ingestion of food Reported as a john, accidental poisoning via ingestion chemical agents. Surgical History History of coronary artery stent placement History of left knee surgery Social History (Updated 01/02/22 @ 21:[address] Alma Crowe MD) household members: other details: Lives with his niece and her family, she is his POA. Smoking Status: Never smoker alcohol intake: never substance use type: does not use ROS Review of Systems ROS Unobtainable: due to mental status Physical Exam Const Constitutional Narrative: Patient is arousable. Does acknowledge my presence. General Appearance: cooperative HEENT normocephalic Eyes Eyes Narrative: Glossy right eye with chronic blindness Neck No nuchal rigidity Resp normal respiratory effort Cardio Cardio Narrative: Regular pulse rate GI non-distended GI Narrative: Cachectic Extremity Extremity Narrative: Right lower extremity: Skin clean, dry, and intact. Limb is shortened and externally rotated Motor is intact dorsiflexion, EHL and plantar flexion. Sensation is intact to light touch saphenous, oswald,l superficial peroneal, deep peroneal and tibial distributions. Calves are soft and supple. Skin no wounds Psych Attention / Concentration: concentration grossly impaired Memory / Cognition: memory grossly impaired Medical Records Data Attestation: I reviewed the patient's medical records Medical Nutrition Assessment Dietitian: Malnutrition Criteria Met Start: 01/03/22 11:28 Freq: Status: Active Protocol: Document 01/03/22 12:16 RMA (Rec: 01/03/22 12:16 RMA [id number]) Nutrition Malnutrition Evidence of Malnutrition Exists Yes Malnutrition (severe): Chronic Evidenced By Suboptimal Energy Intake ( Severe),Weight Loss (Severe), Physical Changes (Severe) Intake Problem Inadequate Oral Intake Etiology related to pending surgery/hip fx Signs/Symptoms as evidenced by NPO Status Active Problem Clinical Problem Chronic Disease or Condition Related Malnutrition Etiology Severe protein/calorie malnutrition in the context of chronic disease and debility related to inadequate oral intake and weakness Signs/Symptoms as evidenced by BMI 18.0, 12% wt loss x 3 months, PO meeting less than 50% estimated nutrition needs x past 3-6 months, signs of muscle/fat wasting in the face, orbitals, clavicle, arms and legs and currently NPO for surgery Status Active Problem Recommendation Dietitian Recommendations/Changes Recommend advance diet post-op as medically able to liberalized Regular. Add 120ml Ensure enlive 4 times per day w/ medpass as diet resumed after surgery. May need to consider TF support if PO remains inadequate as diet advanced. Lab / Micro Data Attestation: I reviewed the patient's lab results. Result Diagrams: 01/03/22 05:49 01/03/22 05:49 Labs: Laboratory Results - last 24 hr 01/02/22 13:30: WBC 9.1, RBC 3.63 L, Hgb 11.8 L, Hct 36.2 L, MCV 99.7 H, MCH 32.5 H, MCHC 32.6, RDW Std Deviation 44.7 H, RDW Coeff of Elizabeth 12.4, Plt Count 398, MPV 9.9, Immature Gran % (Auto) 0.700, Neut % (Auto) 79.8 H, Lymph % (Auto) 8.3 L, [place] % (Auto) 9.4, Eos % (Auto) 1.2, Baso % (Auto) 0.6, Absolute Neuts (auto) 7.2, Absolute Lymphs (auto) 0.75 L, Nucleated RBC % 0 01/02/22 13:30: PT 14.4, INR 1.2, APTT 38.1 H 01/02/22 13:30: Sodium 138, Potassium 3.9, Chloride 107, Carbon Dioxide 27.0, Anion Gap 4 L, BUN 26 H, Creatinine 1.07, Estim Creat Clear Calc 46.78, Est GFR (MDRD) Af Amer 86, Est GFR (MDRD) Non-Af 71, BUN/Creatinine Ratio 24.3 H, Glucose 144 H, Calcium 8.7, Total Bilirubin 0.70, AST 47 H, ALT 49, Alkaline Phosphatase 88, Troponin I High Sens 9, Total Protein 6.4, Albumin 2.9 L, Globulin 3.5, Albumin/Globulin Ratio 0.8 L 01/02/22 13:30: Magnesium 2.5 01/02/22 13:46: Urine Color Yellow, Urine Clarity Clear, Urine pH 5.0, Ur Specific [place] 1.030, Urine Protein 30 H, Urine Glucose (UA) Normal, Urine Ketones Negative, Urine Occult Blood 50 H, Urine Nitrite Negative, Urine Bilirubin Negative, Urine Urobilinogen 1 H, Ur Leukocyte Esterase 25 H, Urine RBC 0-5 SEEN, Urine WBC 0-5 SEEN, Ur Squamous Epith Cells 0 SEEN, Urine Bacteria 1+, Urine Mucus 0 SEEN 01/02/22 19:00: Sodium 140, Potassium 4.0, Chloride 108 H, Carbon Dioxide 27.0, Anion Gap 5, BUN 23 H, Creatinine 0.94, Estim Creat Clear Calc 48.40, Est GFR (MDRD) Af Amer 99, Est GFR (MDRD) Non-Af 82, BUN/Creatinine Ratio 24.3 H, Glucose 102, Calcium 8.6, Total Bilirubin 0.60, AST 49 H, ALT 52, Alkaline Phosphatase 85, Total Protein 6.2 L, Albumin 2.8 L, Globulin 3.4, Albumin/Globulin Ratio 0.8 L 01/03/22 00:59: POC Glucose 96 01/03/22 05:49: WBC 8.3, RBC 3.10 L, Hgb 10.2 L, Hct 30.3 L, MCV 97.7 H, MCH 32.9 H, MCHC 33.7, RDW Std Deviation 43.8, RDW Coeff of [place] 12.4, Plt Count 379, MPV 9.7, Immature Gran % (Auto) 0.400, Neut % (Auto) 69.8, Lymph % (Auto) 13.6 L , [place] % (Auto) 11.6 H, Eos % (Auto) 4.0, Baso % (Auto) 0.6, Absolute Neuts (auto) 5.8, Absolute Lymphs (auto) 1.12, Nucleated RBC % 0 01/03/22 05:49: Sodium 139, Potassium 3.9, Chloride 107, Carbon Dioxide 27.0, Anion Gap 5, BUN 21 H, Creatinine 0.90, Estim Creat Clear Calc 50.56, Est GFR (MDRD) Af Amer 105, Est GFR (MDRD) Non-Af 87, BUN/Creatinine Ratio 23.3 H, Glucose 96, Calcium 8.1 L, Total Bilirubin 0.70, AST 39 H, ALT 46, Alkaline Phosphatase 74, Total Protein 5.6 L, Albumin 2.5 L, Globulin 3.1, Albumin/Globulin Ratio 0.8 L 01/03/22 05:49: Hemoglobin A1c 4.9 01/03/22 05:49: Blood Type O POSITIVE, Antibody Screen NEGATIVE Micro: Microbiology 01/02/22 13:22 Nasal Secretion SARS-CoV-2 Antigen (Rapid) - Final Radiology Impression Brain CT 01/02/22 13:02 IMPRESSION: Chronic involutional changes of the brain. Partial opacification of the left sphenoid sinus. Electronically Signed: Beau Martinez MD at 14:25 EDT , Hip/Pelvis X-Ray 01/02/22 14:00 IMPRESSION: Basilar cervical fracture of the proximal right femur with cephalic migration of the distal femoral component. Electronically Signed: Beau Martinez MD at 14:26 EDT , Lower Extremity CT 01/02/22 14:58 IMPRESSION: Subacute basicervical fracture with resolving hematoma and cephalic migration of the distal femoral component. Electronically Signed: Beau Martinez MD at 15:32 EDT ,
--- NOTE | 2022-01-03 12:37 | RAD_ITS ---
HISTORY: HEMIARTHROPLASTY. TECHNIQUE: 5 spot images. COMPARISON: None. FINDINGS: BONES : Fluoroscopic guidance for right hip arthroplasty. RAD/Hip 1 view with Pelvis IMPRESSION: Image guidance for hip arthroplasty. Please refer to procedure note. Electronically Signed: Karrie Fuller MD at 16:39 EDT ,
--- NOTE | 2022-01-03 12:40 | CASEMGMT ---
ABEBA PEÑALOZA Assessment: Face to Face with pt magnus for initial transition planning/care coordination assessment as patient is in surgery and has dementia. ABEBA PEÑALOZA introduced self and role at [facility], pt magnus voices understanding and consents to assessment. Care providers, pharmacy, and demographics verified/updated. Admitting Dx: fall, R hip fx PCP:[facility] in [place], pt magnus is not sure the name of PCP. Specialists:All specialists are at the [facility] either in [place] or at [facility]. She is not sure of the name but states pt has a cardio, eye dr and ENT. Preferred [facility]acy: [facility]: [facility]it: [facility] LW/HPOA: Pt magnus provided LW/DPOA to ABEBA PEÑALOZA, copy made and placed in chart. Pt magnus Colon is pt DPOA. LNOK: Ayaka Colon, niece; Damian Colon, nephew in law Living Arrangements: Pt lives with niece and nephew in law in a single story house with 2 steps to get in with rails. Niece states pt was I in ADL's with some guidance prior to hospitalization. States pt had some balance issues and did not use AD for ambulation. Pt fed birds and checked the mail on his own. He was able to be by himself for a couple of hours at a time. Pt magnus has cameras in the home to monitor pt. Transportation: Pt niece or nephew in law provides transportation. DME/HHC/SNF: Pt has a w/c at home. No other DME. Pt has no hx of HHC and has been to [facility] in the past. Pt magnus states that [facility] mos [facility] but they took pt home d/t dissatisfaction with the care. Pt magnus states she is unable to care for her uncle post hospitalization. She states her works multimedia technician and she is disabled herself. SW updated. Pt magnus states no further concerns/needs. CM to follow. Advised pt magnus to ask CM if any further question/concerns/needs arise, voices understanding. Pt Magnus Goal: SNF Plan: SNF
[2022-01-03] MEDS: Cefazolin 2 GM in 0.9% Normal Saline 100 ML IV (13:00)
--- NOTE | 2022-01-03 13:53 | PN.HOSP_ITS ---
Subjective Subjective Patient seen and examined. He was alert but lethargic; unable to do review of systems due to patient's confusion and lethargy. He is due for surgery today. Objective Data Objective Data Vital Signs: Vital Signs Temp Pulse Resp BP Pulse Ox O2 Del Method 98.4 F 37 L 16 127/51 H 96 Room Air 01/03/22 08:00 01/03/22 08:24 01/03/22 08:00 01/03/22 08:00 01/03/22 08:16 01/03/22 08:16 Oxygen Delivery Method Room Air Weight: 114 lb 10.246 oz Body Mass Index (BMI) 17.9 Intake & Output: Intake and Output for Last 24 Hours 01/01/22 01/02/22 01/03/22 23:59 23:59 23:59 Intake Total 240 / 240 110 / 110 Output Total 200 / 200 250 / 250 Balance 40 / 40 -140 / -140 Medical Nutrition Assessment Dietitian: Malnutrition Criteria Met Start: 01/03/22 11:28 Freq: Status: Active Protocol: Document 01/03/22 12:16 RMA (Rec: 01/03/22 12:16 RMA [id number]) Nutrition Malnutrition Evidence of Malnutrition Exists Yes Malnutrition (severe): Chronic Evidenced By Suboptimal Energy Intake ( Severe),Weight Loss (Severe), Physical Changes (Severe) Intake Problem Inadequate Oral Intake Etiology related to pending surgery/hip fx Signs/Symptoms as evidenced by NPO Status Active Problem Clinical Problem Chronic Disease or Condition Related Malnutrition Etiology Severe protein/calorie malnutrition in the context of chronic disease and debility related to inadequate oral intake and weakness Signs/Symptoms as evidenced by BMI 18.0, 12% wt loss x 3 months, PO meeting less than 50% estimated nutrition needs x past 3-6 months, signs of muscle/fat wasting in the face, orbitals, clavicle, arms and legs and currently NPO for surgery Status Active Problem Recommendation Dietitian Recommendations/Changes Recommend advance diet post-op as medically able to liberalized Regular. Add 120ml Ensure enlive 4 times per day w/ medpass as diet resumed after surgery. May need to consider TF support if PO remains inadequate as diet advanced. Lab / Micro Data Result Diagrams: 01/03/22 05:49 01/03/22 05:49 Labs: Laboratory Results - last 24 hr 01/02/22 13:30: Sodium 138, Potassium 3.9, Chloride 107, Carbon Dioxide 27.0, Anion Gap 4 L, BUN 26 H, Creatinine 1.07, Estim Creat Clear Calc 46.78, Est GFR (MDRD) Af Amer 86, Est GFR (MDRD) Non-Af 71, BUN/Creatinine Ratio 24.3 H, Glucose 144 H, Calcium 8.7, Total Bilirubin 0.70, AST 47 H, ALT 49, Alkaline Phosphatase 88, Troponin I High Sens 9, Total Protein 6.4, Albumin 2.9 L, Globulin 3.5, Albumin/Globulin Ratio 0.8 L 01/02/22 13:30: Magnesium 2.5 01/02/22 13:46: Urine Color Yellow, Urine Clarity Clear, Urine pH 5.0, Ur Specific [place] 1.030, Urine Protein 30 H, Urine Glucose (UA) Normal, Urine Ketones Negative, Urine Occult Blood 50 H, Urine Nitrite Negative, Urine Bilirubin Negative, Urine Urobilinogen 1 H, Ur Leukocyte Esterase 25 H, Urine RBC 0-5 SEEN, Urine WBC 0-5 SEEN, Ur Squamous Epith Cells 0 SEEN, Urine Bacteria 1+, Urine Mucus 0 SEEN 01/02/22 19:00: Sodium 140, Potassium 4.0, Chloride 108 H, Carbon Dioxide 27.0, Anion Gap 5, BUN 23 H, Creatinine 0.94, Estim Creat Clear Calc 48.40, Est GFR (MDRD) Af Amer 99, Est GFR (MDRD) Non-Af 82, BUN/Creatinine Ratio 24.3 H, Glucose 102, Calcium 8.6, Total Bilirubin 0.60, AST 49 H, ALT 52, Alkaline Phosphatase 85, Total Protein 6.2 L, Albumin 2.8 L, Globulin 3.4, Albumin/Globulin Ratio 0.8 L 01/03/22 00:59: POC Glucose 96 01/03/22 05:49: WBC 8.3, RBC 3.10 L, Hgb 10.2 L, Hct 30.3 L, MCV 97.7 H, MCH 32.9 H, MCHC 33.7, RDW Std Deviation 43.8, RDW Coeff of [place] 12.4, Plt Count 379, MPV 9.7, Immature Gran % (Auto) 0.400, Neut % (Auto) 69.8, Lymph % (Auto) 13.6 L , [place] % (Auto) 11.6 H, Eos % (Auto) 4.0, Baso % (Auto) 0.6, Absolute Neuts (auto) 5.8, Absolute Lymphs (auto) 1.12, Nucleated RBC % 0 01/03/22 05:49: Sodium 139, Potassium 3.9, Chloride 107, Carbon Dioxide 27.0, Anion Gap 5, BUN 21 H, Creatinine 0.90, Estim Creat Clear Calc 50.56, Est GFR (MDRD) Af Amer 105, Est GFR (MDRD) Non-Af 87, BUN/Creatinine Ratio 23.3 H, Glucose 96, Calcium 8.1 L, Total Bilirubin 0.70, AST 39 H, ALT 46, Alkaline Phosphatase 74, Total Protein 5.6 L, Albumin 2.5 L, Globulin 3.1, Albumin/Globulin Ratio 0.8 L 01/03/22 05:49: Hemoglobin A1c 4.9 01/03/22 05:49: Blood Type O POSITIVE, Antibody Screen NEGATIVE Micro: Microbiology 01/02/22 13:22 Nasal Secretion SARS-CoV-2 Antigen (Rapid) - Final Radiography Diagnostic Testing: Radiology Impression Brain CT 01/02/22 13:02 IMPRESSION: Chronic involutional changes of the brain. Partial opacification of the left sphenoid sinus. Electronically Signed: Beau Martinez MD at 14:25 EDT , Hip/Pelvis X-Ray 01/02/22 14:00 IMPRESSION: Basilar cervical fracture of the proximal right femur with cephalic migration of the distal femoral component. Electronically Signed: Beau Martinez MD at 14:26 EDT , Lower Extremity CT 01/02/22 14:58 IMPRESSION: Subacute basicervical fracture with resolving hematoma and cephalic migration of the distal femoral component. Electronically Signed: Beau Martinez MD at 15:32 EDT , Physical Exam Const alert Orientation / Consciousness: confused, disoriented and lethargic HEENT head/scalp atraumatic Head and Scalp: normocephalic Mouth: dry mucous membranes Eyes PERRL, EOMs intact bilaterally and conjunctivae normal Neck no lymphadenopathy and supple Resp normal respiratory effort, no retractions, no use of accessory muscles and clear to auscultation bilaterally Cardio regular rate, regular rhythm, S1 normal heart sound, S2 normal heart sound and no murmurs GI normal to inspection, nondistended, normoactive bowel sounds, soft to palpation, non-tender and non-distended Extremity no clubbing, cyanosis or edema Neuro CN's II-XII intact bilaterally Neuro Narrative: confused Sensorium / Orientation: awake Psych Psych Narrative: flat affect Assessment & Plan Assessment/Plan (1) Fracture of hip, right, closed: PLAN: Plan #Debility due to traumatic right hip fracture * fell at home. * imaging done showed right subacute basicervical fracutre with resolving hematoma and cephalic migration of distal femoral component. * orthopedic surgery on board * PT/OT on board; fall precautions * on main medications. * for surgery today; family wants surgery for mainly comfort. * #Hyperglycemia: resolved #History of CVA: eliquis on hold as he is going for surgery. on statin. #CAD s/p PCI: plavix and eliquis on hold. continue metoprolol, lisinopril and statin. #Paroxysmal afib: on metoprolol. on eliquis. #Hypertension; on metoprolol, amlodipine and lisinopril. IV hydralazine prn #Hyperlipidemia: on statin Code status: DNRCC Charges/Coding Visit Charges Inpatient E&M: 05415 Subs Hosp L2
--- NOTE | 2022-01-03 14:10 | OP.PCM_ITS ---
Report of Operation Date of Procedure: 01/03/22 Pre-Operative Diagnosis: Right hip subacute subcapital femoral neck fracture 10 0% displaced Post-Operative Diagnosis: Right hip subacute subcapital femoral neck fracture 100% displaced Surgery/Procedure Performed:: Right hip hemiarthroplasty Description of Surgical Findings:: Stable hip Surgeon: Jayson Funk general manager food: Dallas Fung Type of Anesthesia: General Anesthesiologist: Khalif Hernandez Special Medications: Ancef Specimen's removed: Bony cuts Estimated Blood Loss (mL): 200 Fluids Replaced: 1000 mL crystalloid Description of Procedure: Components used: 1. [place] insignia high offset stem size 4 2. [place] cobalt-chromium Unitrax femoral head 46 mm, standard sleeve Procedure: On the date of procedure the patient's R hip was marked in the preoperative area. Patient was then taken back to the operating room where anesthesia assumed control of the C-spine and airway and administered anesthetic. Patient was transferred to the operating table and placed in the supine position. The hips were placed the break of the bed and a bump was placed in the sacrum. The R lower extremity was then prepped out in a sterile fashion using chlorhexidine while the surgeon scrubbed. Upon reentering the room the R lower extremity was draped in the standard orthopedic fashion and the incision was marked. A timeout was called and everyo ne agreed upon the side, the site, the procedure be performed, antibody given, and patient's identity. At this time incision was made through skin, subcutaneous tissue, and fat down to fascia. The fascia was then incised and the TFL was retracted laterally. A retractor was placed on the lateral border of the femoral neck. Attention was directed to the inferior portion of the approach and all crossing vessels were identified and appropriately coagulated. A retractor was then placed on the medial portion of the femoral neck. The anterior capsule was then cleared of all soft tissue and then H shaped capsulotomy was made. The retractors were then placed inside the capsule. The femoral neck was identified and a cleanup cut was made. At this time a power corkscrew was used to remove the femoral head. The femoral head was measures and a 46 mm bipolar component was selected. Soft tissue releases on the medial and lateral femoral neck were appropriately done, the leg was externally rotated and lateralized. A Carey retractor was placed medially and proximally to the greater trochanter this allowed appropriate visualization and exposure of the femoral canal. Rongeour was then used to remove excess lateral bone. A canal finder and entry broach were used to open the proximal canal. Once we verified we were down the femoral canal we subsequently broached up to a size 4 femur. The appropriate neck was placed in the previously selected head was trialed with a 0mm neck. Traction was pulled and the hip was reduced with internal rotation. Once it was appropriately reduced and stability was checked. There was minimal shuck, equal leg lengths and appropriate stability with hyperextension and external rotation as well as with 90? flexion and internal rotation. The trial components were then dislocated the proximal femur was again exposed and the components were removed from the wound. The final components were verified and opened. The wound was copiously irrigated out with normal saline. The acetabulum was checked for any residual debris. The final components were placed and impacted. Traction and internal rotation were again used to reduce the hip. After adequate reduction the hip remained stable with appropriate leg lengths. The wound was then copiously irrigated with normal saline once more, and hemostasis was obtained. Closure was then done using #1 Vicryl runner to close the fascia. A 2-0 Vicryl runner was used to close the subcutaneous skin. A 3-0 Monocryl and Steri-Strips were used for final skin closure. A Silverlon dressing was placed. Patient was awakened by anesthesia and transferred to [facility]. Patient was then transferred to the PACU for recovery. Postoperative plan: Patient will get 24 hours postop antibiotics. Patient will get in-house physical therapy and will be weight-bear as tolerated. Patient will follow up in office in 2 weeks for a wound check and x-rays. patient can resumed Eliquis and Plavix tomorrow which will be sufficient for DVT prophylaxis. During the course of the procedure the physician ointment mill tender (PE) played a vital role. Their intimate knowledge of my steps in the procedure aided in safe and expedient completion of the procedure. The PE played a vital rolls in positioning particularly in obtaining the appropriate positioning of the sacral bump. The PE was also vital in the retraction of soft tissues during the exposure and especially the femoral work as this is a vital part of the procedure to prevent complications and fractures. The PE was also vital and protecting soft tissues during times of bony cuts and reaming. He also played a vital role in closure with my direct supervision. The PE was also important during reduction and dislocation of the joint and trials intraoperatively. Complications No intraoperative complications Admit VTE Documentation VTE Present on Admission: No VTE Mechan Device Prophylaxis: SCD's and Thigh High KARINA Hose VTE Pharm Prophylaxis ordered?: Yes
[2022-01-03] MEDS: Lactated Ringers 1,000 ML 15 ML IV (14:15)
--- NOTE | 2022-01-03 16:13 | CASEMGMT ---
Social Work JIM called [facility] to gather information on pt services. George from the [facility] called back and reported pt has 50% [place] from the [facility] and is not eligible for a SNF stay for rehab through VA coverages. He did state pt would be eligible for respite care. JIM asked about previous SNF stay for rehab that was discussed by pt niece to [facility]. George from the [facility] stated pt had Medicare at that time and his SNF stay was covered through that insurance. He does not have any active insurance information on file for pt at this time and is not aware if he still has medicare. George reported pt would be covered for [facility] through the [facility]. JIM notified [facility], of this information. JIM Isabel called [employer] to review if pt has Medicare that has been overlooked. Left message. LAI Galarza
[2022-01-03] MEDS: Cefazolin 1 GM/50 ML BAG IV (20:14)
[2022-01-03] MEDS: Atorvastatin Calcium 80 MG Tablet PO (21:18)
[2022-01-03] MEDS: Docusate Sodium 100 MG Capsule PO (21:19)
[2022-01-04] VITALS (10 sets, daily range): BP systolic 103–148; BP diastolic 44–92; PULSE 60–89; RESP 16–18; TEMP 36.6–37.2; O2SAT 96–100; BMI 18.0
[2022-01-04] MEDS: Cefazolin 1 GM/50 ML BAG IV (05:03)
[2022-01-04 07:14] LABS: Absolute Lymphocyte Count 0.79 X10^3/uL (0.83-4.51); Absolute Neutrophil Count 12.8 X10^3/uL (2.0-7.7); Basophil# 0.04 X10^3/uL; Basophil% 0.3 % (0-1); Hematocrit 26.8 % (40-54); Lymphocyte # 0.79 X10^3/ul (0.83-4.51); Lymphocyte % 5.1 % (19-41); Mean Corp Hgb Conc 33.6 g/dL (32-36); Mean Corpuscular Volume 98.2 fL (80-94); Mean Platelet Vol. 9.7 fl (6.2-12.0); Monocyte# 1.79 X10^3/uL; Monocyte% 11.6 % (0-10); NRBC Flagged by Analyzer 0 % (0-5); Neutrophil # 12.76 X10^3/uL (2.7-7.7); Neutrophil % 82.5 % (47-70); POSITIVE DIFFERENTIAL YES; Platelet Count 401 K/mm3 (150-450); RBC Distribution Width CV 12.3 % (11.6-14.6); RBC Distribution Width SD 44.2 fl (35.1-43.9); Red Blood Count 2.73 M/mm3 (4.6-6.2); White Blood Count 15.5 K/mm3 (4.4-11.0)
[2022-01-04 07:15] LABS: Differential Indicated SCAN CRITERIA MET
[2022-01-04 07:45] LABS: Anion Gap 6 (5-15); BUN 20 mg/dL (7-18); BUN/Creat Ratio 17.2 RATIO (10-20); Calcium,Total 8.2 mg/dL (8.5-10.1); Chloride 104 mmol/L (98-107); Creatinine, Serum 1.16 mg/dL (0.70-1.30); EST Glomerular Filtration Rate 65 mL/min (>60); Est Glom Filt Rate - Afr Amer 78 mL/min (>60); Estimated Creatinine Clearance 35.75 ml/min; Glucose 137 mg/dL (74-106); Potassium 3.8 mmol/L (3.5-5.1); Sodium Level 136 mmol/L (136-145)
[2022-01-04 07:55] LABS: Platelet Estimate ADEQUATE (ADEQ); Red Cell Morphology NORM C+C NORMAL (NORM C&C)
[2022-01-04] MEDS: traMADol 50 MG Tablet PO ×2 (10:13→23:28)
[2022-01-04] MEDS: Acetaminophen 325 MG Tablet 650 MG PO ×2 (10:14→23:28)
[2022-01-04] MEDS: Docusate Sodium 100 MG Capsule PO ×2 (10:15→22:56)
[2022-01-04] MEDS: Pantoprazole Sodium 40 MG Tablet PO (10:19)
--- NOTE | 2022-01-04 10:48 | PN.HOSP_ITS ---
Subjective Subjective Patient seen and examined. He remains confused. He had right hemiarthroplasty yesterday for the right hip fracture. Today is POD 1. Objective Data Objective Data Vital Signs: Vital Signs Temp Pulse Resp BP Pulse Ox O2 Del Method 98.9 F 86 18 103/74 97 Room Air 01/04/22 09:45 01/04/22 10:24 01/04/22 09:47 01/04/22 10:24 01/04/22 09:45 01/04/22 09:47 Oxygen Delivery Method Room Air Weight: 104 lb 8 oz Body Mass Index (BMI) 17.9 Intake & Output: Intake and Output for Last 24 Hours 01/02/22 01/03/22 01/04/22 23:59 23:59 23:59 Intake Total 240 / 240 1160 / 1160 50 / 50 Output Total 200 / 200 530 / 780 500 / 500 Balance 40 / 40 630 / 380 -450 / -450 Medical Nutrition Assessment Dietitian: Malnutrition Criteria Met Start: 01/03/22 11:28 Freq: Status: Active Protocol: Document 01/03/22 12:16 RMA (Rec: 01/03/22 12:16 RMA [id number]) Nutrition Malnutrition Evidence of Malnutrition Exists Yes Malnutrition (severe): Chronic Evidenced By Suboptimal Energy Intake ( Severe),Weight Loss (Severe), Physical Changes (Severe) Intake Problem Inadequate Oral Intake Etiology related to pending surgery/hip fx Signs/Symptoms as evidenced by NPO Status Active Problem Clinical Problem Chronic Disease or Condition Related Malnutrition Etiology Severe protein/calorie malnutrition in the context of chronic disease and debility related to inadequate oral intake and weakness Signs/Symptoms as evidenced by BMI 18.0, 12% wt loss x 3 months, PO meeting less than 50% estimated nutrition needs x past 3-6 months, signs of muscle/fat wasting in the face, orbitals, clavicle, arms and legs and currently NPO for surgery Status Active Problem Recommendation Dietitian Recommendations/Changes Recommend advance diet post-op as medically able to liberalized Regular. Add 120ml Ensure enlive 4 times per day w/ medpass as diet resumed after surgery. May need to consider TF support if PO remains inadequate as diet advanced. Lab / Micro Data Result Diagrams: 01/04/22 06:35 01/04/22 06:35 Labs: Laboratory Results - last 24 hr 01/04/22 06:35: WBC 15.5 H, RBC 2.73 L, Hgb 9.0 L, Hct 26.8 L, MCV 98.2 H, MCH 33.0 H, MCHC 33.6, RDW Std Deviation 44.2 H, RDW Coeff of Elizabeth 12.3, Plt Count 401, MPV 9.7, Immature Gran % (Auto) 0.500, Neut % (Auto) 82.5 H, Lymph % (Auto) 5.1 L, [place] % (Auto) 11.6 H, Eos % (Auto) 0.0, Baso % (Auto) 0.3, Absolute Neuts (auto) 12.8 H, Absolute Lymphs (auto) 0.79 L, Nucleated RBC % 0, Differential Comment , Diff Path Review September, Platelet Estimate ADEQUATE, RBC Morphology NORM C+C 01/04/22 06:35: Sodium 136, Potassium 3.8, Chloride 104, Carbon Dioxide 26.0, Anion Gap 6, BUN 20 H, Creatinine 1.16, Estim Creat Clear Calc 35.75, Est GFR (MDRD) Af Amer 78, Est GFR (MDRD) Non-Af 65, BUN/Creatinine Ratio 17.2, Glucose 137 H, Calcium 8.2 L Micro: Microbiology 01/02/22 13:22 Nasal Secretion SARS-CoV-2 Antigen (Rapid) - Final Radiography Diagnostic Testing: Radiology Impression Hip/Pelvis X-Ray 01/03/22 12:37 IMPRESSION: Image guidance for hip arthroplasty. Please refer to procedure note. Electronically Signed: Karrie Fuller MD at 16:39 EDT , Physical Exam Const alert Orientation / Consciousness: confused, disoriented and lethargic HEENT head/scalp atraumatic Eyes PERRL, EOMs intact bilaterally and conjunctivae normal Neck no lymphadenopathy and supple Resp normal respiratory effort, no retractions, no use of accessory muscles and clear to auscultation bilaterally Cardio regular rate, regular rhythm, S1 normal heart sound, S2 normal heart sound and no murmurs GI normal to inspection, nondistended, normoactive bowel sounds, soft to palpation, non-tender and non-distended Extremity no clubbing, cyanosis or edema Extremity Narrative: intact dressing over surgical site at right hip Neuro CN's II-XII intact bilaterally Neuro Narrative: confused Sensorium / Orientation: awake Psych Psych Narrative: flat affect Assessment & Plan Assessment/Plan (1) Fracture of hip, right, closed: PLAN: Plan #Debility due to traumatic right hip fracture * s/p right hemiarthroplasty * today is POD 1 * PT/OT on board. Fall precautions * continue current pain meds * #Leucocytosis * wbc is 15 today. Was 8.3 yesterday * likely reactive due to surgery * will monitor * #Hyperglycemia: resolved #History of CVA: eliquis on hold as he is going for surgery. on statin. Resume eliquis today #CAD s/p PCI: Resume eliquis and plavix today. continue metoprolol, lisinopril and statin. #Paroxysmal afib: on metoprolol. on eliquis. #Hypertension; on metoprolol, amlodipine and lisinopril. IV hydralazine prn #Hyperlipidemia: on statin Code status: DNRCC Disposition: awaiting placement Charges/Coding Visit Charges Inpatient E&M: 04507 Subs Hosp L2
--- NOTE | 2022-01-04 11:44 | CASEMGMT ---
Social Work JIM spoke with Yu in [facility] who confirms pt does not have Medicare. VA is only insurance. SW met with pt and introduced self. Pt is alert but not able to answer questions appropriately. Phone call placed to pt magnus Marley who confirms pt does not have Medicare. JIM explained that pt is 50% service connected with VA and therefore VA will not cover cost of SNF. SW reviewed pt's financial situation with niece, and it seems pt will qualify for Medicaid. JIM explained Medicaid to Niece and she is agreeable to apply for medicaid on behalf of pt. JIM also inquired if niece has choice of facility she would like pt to go to and niece states she has not yet made a decision on this. Niece will be in later today. JIM emailed Medicaid application and SNF list including quality and resource use data and consistent with the patient's referred geographic region, medical needs and insurance network to pt magnus. Niece states she will complete the application and make SNF choices and be in later today with this information. LAI Smyth
[2022-01-04 12:39] LABS: Pathologist Review Reviewed
--- NOTE | 2022-01-04 14:36 | PCM.PN.ORT ---
Subjective Subjective The patient was sitting in bedside chair upon examination. Patient denies any chest pain, shortness of breath, dizziness, lightheadedness, nausea or vomiting, or calf pain. Pain is controlled on medications. No adverse overnight events. Patient's interaction is limited secondary to his underlying dementia. He does answer questions with one-word answers. He does not appear to be in any distress. Objective Data Objective Data Vital Signs: Vital Signs Temp Pulse Resp BP Pulse Ox O2 Del Method 98.9 F 86 18 103/74 97 Room Air 01/04/22 09:45 01/04/22 10:24 01/04/22 09:47 01/04/22 10:24 01/04/22 09:45 01/04/22 09:47 Oxygen Delivery Method Room Air Weight: 47.4 kg Body Mass Index (BMI) 17.9 Intake & Output: Intake and Output for Last 24 Hours 01/02/22 01/03/22 01/04/22 23:59 23:59 23:59 Intake Total 240 / 240 1160 / 1160 50 / 50 Output Total 200 / 200 530 / 780 500 / 500 Balance 40 / 40 630 / 380 -450 / -450 Medical Nutrition Assessment Dietitian: Malnutrition Criteria Met Start: 01/03/22 11:28 Freq: Status: Active Protocol: Document 01/03/22 12:16 RMA (Rec: 01/03/22 12:16 RMA [id number]) Nutrition Malnutrition Evidence of Malnutrition Exists Yes Malnutrition (severe): Chronic Evidenced By Suboptimal Energy Intake ( Severe),Weight Loss (Severe), Physical Changes (Severe) Intake Problem Inadequate Oral Intake Etiology related to pending surgery/hip fx Signs/Symptoms as evidenced by NPO Status Active Problem Clinical Problem Chronic Disease or Condition Related Malnutrition Etiology Severe protein/calorie malnutrition in the context of chronic disease and debility related to inadequate oral intake and weakness Signs/Symptoms as evidenced by BMI 18.0, 12% wt loss x 3 months, PO meeting less than 50% estimated nutrition needs x past 3-6 months, signs of muscle/fat wasting in the face, orbitals, clavicle, arms and legs and currently NPO for surgery Status Active Problem Recommendation Dietitian Recommendations/Changes Recommend advance diet post-op as medically able to liberalized Regular. Add 120ml Ensure enlive 4 times per day w/ medpass as diet resumed after surgery. May need to consider TF support if PO remains inadequate as diet advanced. Lab / Micro Data Result Diagrams: 01/04/22 06:35 01/04/22 06:35 Labs: Laboratory Results - last 24 hr 01/04/22 06:35: WBC 15.5 H, RBC 2.73 L, Hgb 9.0 L, Hct 26.8 L, MCV 98.2 H, MCH 33.0 H, MCHC 33.6, RDW Std Deviation 44.2 H, RDW Coeff of Elizabeth 12.3, Plt Count 401, MPV 9.7, Immature Gran % (Auto) 0.500, Neut % (Auto) 82.5 H, Lymph % (Auto) 5.1 L, Mcdonald % (Auto) 11.6 H, Eos % (Auto) 0.0, Baso % (Auto) 0.3, Absolute Neuts (auto) 12.8 H, Absolute Lymphs (auto) 0.79 L, Nucleated RBC % 0, Differential Comment , Diff Path Review Reviewed, Platelet Estimate ADEQUATE, RBC Morphology NORM C+C 01/04/22 06:35: Sodium 136, Potassium 3.8, Chloride 104, Carbon Dioxide 26.0, Anion Gap 6, BUN 20 H, Creatinine 1.16, Estim Creat Clear Calc 35.75, Est GFR (MDRD) Af Amer 78, Est GFR (MDRD) Non-Af 65, BUN/Creatinine Ratio 17.2, Glucose 137 H, Calcium 8.2 L Micro: Microbiology 01/02/22 13:22 Nasal Secretion SARS-CoV-2 Antigen (Rapid) - Final Radiography Diagnostic Testing: Radiology Impression Hip/Pelvis X-Ray 01/03/22 12:37 IMPRESSION: Image guidance for hip arthroplasty. Please refer to procedure note. Electronically Signed: Karrie Fuller MD at 16:39 EDT , Physical Exam Narrative Vital signs stable and afebrile. SCDs and KARINA hose are in place bilaterally Right hip is soft and supple Patient is able to plantarflex and dorsiflex actively. Sensation is intact to light touch to saphenous, sural, superficial and deep peroneal, and tibial distribution. Dressing is clean dry and intact. Negative Homans bilaterally, negative signs and symptoms of DVT. Const alert, oriented x3 and no apparent distress Assessment & Plan Assessment/Plan (1) History of right hip hemiarthroplasty: PLAN: 1. S/P right hip hemiarthroplasty POD #1 2. Continue Pain Medications: Tylenol and tramadol as needed for pain 3. DVT Prophylaxis: Patient can resume his Eliquis and Plavix for DVT prophylaxis 4. PT/OT: Weightbearing as tolerated with walker 5. H & H: 9.0/26.8, asymptomatic. Postoperative anemia secondary to acute blood loss from surgery without any intra operative complications. 6. Encouraged Incentive Spirometry 7. Continue postoperative medical management per medicine 8. Disposition: Orthopedically stable, okay for discharge to half-way facility when medically appropriate and approval has been obtained. Patient will continue with physical therapy in which she will be weightbearing as tolerated with walker. He can resume his Plavix and Eliquis for DVT prophylaxis. Continue with Tylenol and tramadol as needed for pain control. Patient will require 2-week postoperative scheduled follow-up with [facility] for x-rays. It is okay to remove the dressing 5 days postoperatively. Okay to shower after the dressing is removed and only use gentle soap and water. Do not submerge underwater for 6 weeks postoperatively. Appreciate consultation and management of patient while in the hospital. Please contact orthopedics with any concerns or questions prior to discharge. This dictation was created using voice recognition software. Phonetic and/or grammatical errors may exist.
--- NOTE | 2022-01-04 15:42 | CASEMGMT ---
Social Work JIM met with pt magnus. SW assisted in completing Medicaid application and faxed it to [facility]. JIM will follow up with [facility] tomorrow to obtain a pending number. SW spoke with magnus regarding SNF choice and reviewed SNF list previously provided. Pt is able to states which facilities she does not want, but not able to state which facility she prefers. JIM explained not all facilities accept Medicaid pending and offered to find out which facilities would be willing to review referral. Magnus agreeable to this. Calls made to facilities on nieces acceptable list and the following facilities are agreeable to review pt referral and consider medicaid pending status: [facility] Voice mail left with [facility] and [facility]. JIM will await return phone calls and notify pt magnus of options and start referral process. LAI Smyth
[2022-01-04] MEDS: Atorvastatin Calcium 80 MG Tablet PO (22:57)
[2022-01-04] MEDS: Metoprolol Tartrate 25 MG Tablet 37.5 MG PO (22:59)
[2022-01-05] VITALS (7 sets, daily range): BP systolic 109–117; BP diastolic 43–58; PULSE 66–80; RESP 16–18; TEMP 36.6–36.9; O2SAT 93–100
[2022-01-05] MEDS: Menthol/Lanolin/Calamine/Znox 113 GM Tube 1 APPLIC TOPICAL ×2 (06:25→20:43)
[2022-01-05] MEDS: traMADol 50 MG Tablet PO (06:25)
[2022-01-05] MEDS: Acetaminophen 325 MG Tablet 650 MG PO (06:25)
[2022-01-05 06:56] LABS: Absolute Lymphocyte Count 1.24 X10^3/uL (0.83-4.51); Absolute Neutrophil Count 10.3 X10^3/uL (2.0-7.7); Basophil# 0.03 X10^3/uL; Basophil% 0.2 % (0-1); Eosinophil# 0.06 X10^3/uL; Eosinophils% 0.5 % (0-5); Hematocrit 25.8 % (40-54); Hemoglobin 8.5 g/dL (13.0-16.5); Lymphocyte # 1.24 X10^3/ul (0.83-4.51); Lymphocyte % 9.4 % (19-41); Mean Corp Hgb Conc 32.9 g/dL (32-36); Mean Corpuscular Hgb 32.4 pg (27.0-32.0); Mean Corpuscular Volume 98.5 fL (80-94); Mean Platelet Vol. 10.1 fl (6.2-12.0); Monocyte# 1.59 X10^3/uL; NRBC Flagged by Analyzer 0 % (0-5); Neutrophil # 10.26 X10^3/uL (2.7-7.7); Neutrophil % 77.5 % (47-70); POSITIVE DIFFERENTIAL YES; Platelet Count 350 K/mm3 (150-450); RBC Distribution Width CV 12.1 % (11.6-14.6); RBC Distribution Width SD 43.7 fl (35.1-43.9); Red Blood Count 2.62 M/mm3 (4.6-6.2); White Blood Count 13.2 K/mm3 (4.4-11.0)
[2022-01-05 07:04] LABS: Differential Indicated SCAN CRITERIA MET
[2022-01-05 07:16] LABS: Anion Gap 5 (5-15); BUN 22 mg/dL (7-18); Calcium,Total 8.1 mg/dL (8.5-10.1); Chloride 104 mmol/L (98-107); Creatinine, Serum 0.96 mg/dL (0.70-1.30); EST Glomerular Filtration Rate 81 mL/min (>60); Est Glom Filt Rate - Afr Amer 98 mL/min (>60); Glucose 108 mg/dL (74-106); Potassium 3.7 mmol/L (3.5-5.1); Sodium Level 137 mmol/L (136-145)
[2022-01-05] MEDS: Docusate Sodium 100 MG Capsule PO ×2 (10:34→20:44)
[2022-01-05] MEDS: Pantoprazole Sodium 40 MG Tablet PO (10:36)
[2022-01-05] MEDS: Lisinopril 5 MG Tablet PO (10:37)
[2022-01-05] MEDS: Metoprolol Tartrate 25 MG Tablet 37.5 MG PO ×2 (10:37→20:43)
--- NOTE | 2022-01-05 10:55 | CASEMGMT ---
Discharge Business Systems Consultant Susu mcgregor/thelma blood and plasma laboratory assistant sent referral over to Jessica at [facility] via email. Will follow up. Plan: [facility], Waiting Acceptance. Susu Melendez Discharge Business Systems Consultant
--- NOTE | 2022-01-05 11:03 | CASEMGMT ---
Addendum entered by Isabel Newberry 01/05/22 15:13: Social Work Per [facility] pt pending Medicaid number is #[id number] D B. JIM did forward the intake packet from [facility] to pt magnus Marley. Referral has been made to [facility], waiting on determination of acceptance. Plan: [facility], pending acceptance and Level of Care LAI Smyth Original Note: Social Work SW spoke with [facility], [facility] and [facility] to check if they accept pending medicaid. JIM then called pt magnus Marley and explained that [facility], [facility], [facility] and [facility] would consider referral. [facility] is a possibility but they have not returned the call yet. Ayaka has previously been given list with quality and resource use data. At this time her choices for pt are 1. [facility] 2. [facility] 3. [facility] 4. [facility]. Email sent to [facility] senior living care account requesting pending medicaid number. Susu, discharge public aid eligibility assistant, updated to start SNF referral process. LAI Smyth
--- NOTE | 2022-01-05 12:56 | PN.HOSP_ITS ---
Subjective Subjective Patient seen and examined. He was alert but remains confused. Unable to do comprehensive review of systems. He is awaiting placement. Today's postop day 2 Objective Data Objective Data Vital Signs: Vital Signs Temp Pulse Resp BP Pulse Ox O2 Del Method 97.9 F 76 18 112/55 L 96 Room Air 01/05/22 09:50 01/05/22 10:37 01/05/22 09:50 01/05/22 09:50 01/05/22 09:50 01/05/22 09:50 Oxygen Delivery Method Room Air Weight: 104 lb 8 oz Body Mass Index (BMI) 17.9 Intake & Output: Intake and Output for Last 24 Hours 01/03/22 01/04/22 01/05/22 23:59 23:59 23:59 Intake Total 1160 / 1160 1511.25 / 1511.25 250 / 250 Output Total 530 / 780 500 / 500 Balance 630 / 380 1011.25 / 1011.25 250 / 250 Medical Nutrition Assessment Dietitian: Malnutrition Criteria Met Start: 01/03/22 11:28 Freq: Status: Active Protocol: Document 01/03/22 12:16 RMA (Rec: 01/03/22 12:16 RMA [id number]) Nutrition Malnutrition Evidence of Malnutrition Exists Yes Malnutrition (severe): Chronic Evidenced By Suboptimal Energy Intake ( Severe),Weight Loss (Severe), Physical Changes (Severe) Intake Problem Inadequate Oral Intake Etiology related to pending surgery/hip fx Signs/Symptoms as evidenced by NPO Status Active Problem Clinical Problem Chronic Disease or Condition Related Malnutrition Etiology Severe protein/calorie malnutrition in the context of chronic disease and debility related to inadequate oral intake and weakness Signs/Symptoms as evidenced by BMI 18.0, 12% wt loss x 3 months, PO meeting less than 50% estimated nutrition needs x past 3-6 months, signs of muscle/fat wasting in the face, orbitals, clavicle, arms and legs and currently NPO for surgery Status Active Problem Recommendation Dietitian Recommendations/Changes Recommend advance diet post-op as medically able to liberalized Regular. Add 120ml Ensure enlive 4 times per day w/ medpass as diet resumed after surgery. May need to consider TF support if PO remains inadequate as diet advanced. Lab / Micro Data Result Diagrams: 01/05/22 06:20 01/05/22 06:20 Labs: Laboratory Results - last 24 hr 01/05/22 06:20: WBC 13.2 H, RBC 2.62 L, Hgb 8.5 L, Hct 25.8 L, MCV 98.5 H, MCH 32.4 H, MCHC 32.9, RDW Std Deviation 43.7, RDW Coeff of Elizabeth 12.1, Plt Count 350, MPV 10.1, Immature Gran % (Auto) 0.400, Neut % (Auto) 77.5 H, Lymph % (Auto) 9.4 L, [place] % (Auto) 12.0 H, Eos % (Auto) 0.5, Baso % (Auto) 0.2, Absolute Neuts (auto) 10.3 H, Absolute Lymphs (auto) 1.24, Nucleated RBC % 0, Differential Comment COMMENT, Diff Path Review September01/05/22 06:20: Sodium 137, Potassium 3.7, Chloride 104, Carbon Dioxide 28.0, Anion Gap 5, BUN 22 H, Creatinine 0.96, Estim Creat Clear Calc 43.20, Est GFR (MDRD) Af Amer 98, Est GFR (MDRD) Non-Af 81, BUN/Creatinine Ratio 23.0 H, Glucose 108 H, Calcium 8.1 L Micro: Microbiology 01/02/22 13:22 Nasal Secretion SARS-CoV-2 Antigen (Rapid) - Final Physical Exam Const alert Orientation / Consciousness: confused and disoriented HEENT head/scalp atraumatic Mouth: dry mucous membranes Eyes PERRL, EOMs intact bilaterally and conjunctivae normal Neck no lymphadenopathy and supple Resp normal respiratory effort, no retractions, no use of accessory muscles and clear to auscultation bilaterally Cardio regular rate, regular rhythm, S1 normal heart sound, S2 normal heart sound and no murmurs GI normal to inspection, nondistended, normoactive bowel sounds, soft to palpation, non-tender and non-distended Extremity no clubbing, cyanosis or edema Extremity Narrative: intact dressing over surgical site at right hip Neuro CN's II-XII intact bilaterally Neuro Narrative: confused Sensorium / Orientation: awake Psych Psych Narrative: flat affect Assessment & Plan Assessment/Plan (1) Fracture of hip, right, closed: PLAN: Plan #Debility due to traumatic right hip fracture * s/p right hemiarthroplasty * today is POD 2 * PT/OT on board. Fall precautions * continue current pain meds * #Leucocytosis * wbc is down to 13.2 today, from 15 yesterday. * likely reactive due to surgery * will monitor * #Hyperglycemia: resolved #History of CVA: eliquis on hold as he is going for surgery. on statin. Resume eliquis today #CAD s/p PCI: Resume eliquis and plavix today. continue metoprolol, lisinopril and statin. #Anemia; Hb is 8.5 today. Baseline is around 11. There is due to acute blood loss from surgery. Will monitor. #Paroxysmal afib: on metoprolol. on eliquis. #Hypertension; on metoprolol, amlodipine and lisinopril. IV hydralazine prn #Hyperlipidemia: on statin DVT prophylaxis; eliquis resumed Code status: DNRCC Disposition: awaiting placement Charges/Coding Visit Charges Inpatient E&M: 85943 Subs Hosp L2
[2022-01-05 13:28] LABS: Pathologist Review Reviewed
--- NOTE | 2022-01-05 14:07 | NURSING ---
unable to complete fragility fractures d/t pt dementia
--- NOTE | 2022-01-05 14:17 | NURSING ---
eliquis not in accudose or on unit for pt administration
[2022-01-05] MEDS: APIXABAN 5 MG TABLET PO ×2 (15:44→20:44)
--- NOTE | 2022-01-05 15:44 | CASEMGMT ---
Iglesia from the [facility] called to check pt status. He is aware that pt will be going to [facility] under his Medicaid if accepted. Iglesia is aware that pt is medically ready.
[2022-01-05] MEDS: Atorvastatin Calcium 80 MG Tablet PO (20:44)
[2022-01-06] VITALS (7 sets, daily range): BP systolic 102–135; BP diastolic 44–74; PULSE 58–87; RESP 18; TEMP 36.3–37.4; O2SAT 95–98
[2022-01-06 05:55] LABS: Absolute Neutrophil Count 9.8 X10^3/uL (2.0-7.7); Basophil# 0.02 X10^3/uL; Basophil% 0.2 % (0-1); Eosinophil# 0.05 X10^3/uL; Eosinophils% 0.4 % (0-5); Hematocrit 25.8 % (40-54); Hemoglobin 8.4 g/dL (13.0-16.5); Lymphocyte % 8.9 % (19-41); Mean Corp Hgb Conc 32.6 g/dL (32-36); Mean Corpuscular Hgb 32.3 pg (27.0-32.0); Mean Corpuscular Volume 99.2 fL (80-94); Mean Platelet Vol. 10.1 fl (6.2-12.0); Monocyte# 1.23 X10^3/uL; NRBC Flagged by Analyzer 0 % (0-5); Neutrophil # 9.84 X10^3/uL (2.7-7.7); Neutrophil % 79.7 % (47-70); Platelet Count 397 K/mm3 (150-450); RBC Distribution Width CV 12.1 % (11.6-14.6); RBC Distribution Width SD 43.7 fl (35.1-43.9); White Blood Count 12.3 K/mm3 (4.4-11.0)
[2022-01-06 06:34] LABS: Anion Gap 5 (5-15); BUN 25 mg/dL (7-18); BUN/Creat Ratio 27.3 RATIO (10-20); Calcium,Total 7.8 mg/dL (8.5-10.1); Chloride 102 mmol/L (98-107); Creatinine, Serum 0.92 mg/dL (0.70-1.30); EST Glomerular Filtration Rate 85 mL/min (>60); Est Glom Filt Rate - Afr Amer 103 mL/min (>60); Estimated Creatinine Clearance 45.08 ml/min; Glucose 102 mg/dL (74-106); Potassium 3.7 mmol/L (3.5-5.1); Sodium Level 136 mmol/L (136-145)
[2022-01-06] MEDS: Metoprolol Tartrate 25 MG Tablet 37.5 MG PO ×2 (09:38→20:57)
[2022-01-06] MEDS: Docusate Sodium 100 MG Capsule PO ×2 (09:38→20:58)
[2022-01-06] MEDS: Pantoprazole Sodium 40 MG Tablet PO (09:39)
[2022-01-06] MEDS: APIXABAN 5 MG TABLET PO ×2 (09:52→20:58)
--- NOTE | 2022-01-06 10:06 | PN.HOSP_ITS ---
Subjective Subjective Patient seen and examined. He had no active complaints and had an uneventful night. Review of systems otherwise negative. He is awaiting placement. Objective Data Objective Data Vital Signs: Vital Signs Temp Pulse Resp BP Pulse Ox O2 Del Method 98.1 F 74 18 115/50 L 95 Room Air 01/06/22 09:36 01/06/22 09:38 01/06/22 09:36 01/06/22 09:36 01/06/22 09:36 01/06/22 09:36 Oxygen Delivery Method Room Air Weight: 104 lb 8 oz Body Mass Index (BMI) 17.9 Intake & Output: Intake and Output for Last 24 Hours 01/04/22 01/05/22 01/06/22 23:59 23:59 23:59 Intake Total 1511.25 / 1511.25 750 / 750 Output Total 500 / 500 Balance 1011.25 / 1011.25 750 / 750 Medical Nutrition Assessment Dietitian: Malnutrition Criteria Met Start: 01/03/22 11:28 Freq: Status: Active Protocol: Document 01/03/22 12:16 RMA (Rec: 01/03/22 12:16 RMA [id number]) Nutrition Malnutrition Evidence of Malnutrition Exists Yes Malnutrition (severe): Chronic Evidenced By Suboptimal Energy Intake ( Severe),Weight Loss (Severe), Physical Changes (Severe) Intake Problem Inadequate Oral Intake Etiology related to pending surgery/hip fx Signs/Symptoms as evidenced by NPO Status Active Problem Clinical Problem Chronic Disease or Condition Related Malnutrition Etiology Severe protein/calorie malnutrition in the context of chronic disease and debility related to inadequate oral intake and weakness Signs/Symptoms as evidenced by BMI 18.0, 12% wt loss x 3 months, PO meeting less than 50% estimated nutrition needs x past 3-6 months, signs of muscle/fat wasting in the face, orbitals, clavicle, arms and legs and currently NPO for surgery Status Active Problem Recommendation Dietitian Recommendations/Changes Recommend advance diet post-op as medically able to liberalized Regular. Add 120ml Ensure enlive 4 times per day w/ medpass as diet resumed after surgery. May need to consider TF support if PO remains inadequate as diet advanced. Lab / Micro Data Result Diagrams: 01/06/22 05:32 01/06/22 05:32 Labs: Laboratory Results - last 24 hr 01/05/22 06:20: Diff Path Review Reviewed 01/06/22 05:32: WBC 12.3 H, RBC 2.60 L, Hgb 8.4 L, Hct 25.8 L, MCV 99.2 H, MCH 32.3 H, MCHC 32.6, RDW Std Deviation 43.7, RDW Coeff of Elizabeth 12.1, Plt Count 397, MPV 10.1, Immature Gran % (Auto) 0.800, Neut % (Auto) 79.7 H, Lymph % (Auto) 8.9 L, [place] % (Auto) 10.0, Eos % (Auto) 0.4, Baso % (Auto) 0.2, Absolute Neuts (auto) 9.8 H, Absolute Lymphs (auto) 1.10, Nucleated RBC % 0 01/06/22 05:32: Sodium 136, Potassium 3.7, Chloride 102, Carbon Dioxide 29.0, Anion Gap 5, BUN 25 H, Creatinine 0.92, Estim Creat Clear Calc 45.08, Est GFR (MDRD) Af Amer 103, Est GFR (MDRD) Non-Af 85, BUN/Creatinine Ratio 27.3 H, Glucose 102, Calcium 7.8 L Micro: Microbiology 01/02/22 13:22 Nasal Secretion SARS-CoV-2 Antigen (Rapid) - Final Physical Exam Const alert Orientation / Consciousness: confused and disoriented HEENT head/scalp atraumatic Mouth: dry mucous membranes Eyes PERRL, EOMs intact bilaterally and conjunctivae normal Neck no lymphadenopathy and supple Resp normal respiratory effort, no retractions, no use of accessory muscles and clear to auscultation bilaterally Cardio regular rate, regular rhythm, S1 normal heart sound, S2 normal heart sound and no murmurs GI normal to inspection, nondistended, normoactive bowel sounds, soft to palpation, non-tender and non-distended Extremity no clubbing, cyanosis or edema Extremity Narrative: intact dressing over surgical site at right hip Neuro oriented x3, CN's II-XII intact bilaterally, moves all extremities and no focal motor deficits Neuro Narrative: confused Sensorium / Orientation: awake and alert Motor Exam: strength 5/5 throughout Psych Psych Narrative: flat affect Assessment & Plan Assessment/Plan (1) Fracture of hip, right, closed: PLAN: Plan #Debility due to traumatic right hip fracture * s/p right hemiarthroplasty * today is POD 3 * PT/OT on board. Fall precautions * continue current pain meds * #Leucocytosis * wbc is down to 12.3 today * likely reactive due to surgery * will monitor * #Hyperglycemia: resolved #History of CVA: eliquis. on statin #CAD s/p PCI: Resume eliquis and plavix today. continue metoprolol, lisinopril and statin. #Anemia: * Hb is 8.4 today. Baseline is around 11. * There is due to acute blood loss from surgery. Will monitor. #Paroxysmal afib: on metoprolol. on eliquis. #Hypertension; on metoprolol, amlodipine and lisinopril. IV hydralazine prn #Hyperlipidemia: on statin DVT prophylaxis; eliquis resumed Code status: DNC Disposition: awaiting placement Charges/Coding Visit Charges Inpatient E&M: 12827 Subs Hosp L2
--- NOTE | 2022-01-06 10:53 | CASEMGMT ---
Discharge Artificial Plastic Eye Maker Susu mcgregor/thelma assistant teacher primary emailed Jessica at [facility] this morning with no response. Susu called facility and left message. Susu called [facility] again and told administrative receptionist I have been trying to reach Jessica since yesterday and have gotten no response. Final Inspector [employer] asked me to now send referral to [facility]. Susu sent referral to [facility] and will follow up. Plan: [facility], Waiting Acceptance Susu Melendez Discharge Artificial Plastic Eye Maker
--- NOTE | 2022-01-06 11:15 | CASEMGMT ---
Addendum entered by Susu Melendez 01/06/22 12:55: Susu reached out to Susu d/c desk assistant to inform this display card writer that [facility] is currently reviewing referral. Susu Melendez Discharge Director Of Digital Technology Original Note: Discharge Director Of Digital Technology [facility] can't take a Medicaid pending at this time. Susu called Susu at [facility] and sent referral to Susu. Will follow up. Plan: [facility], Waiting Acceptance. Susu Melendez Discharge Director Of Digital Technology
[2022-01-06] MEDS: Menthol/Lanolin/Calamine/Znox 113 GM Tube 1 APPLIC TOPICAL ×2 (11:55→20:58)
--- NOTE | 2022-01-06 14:40 | CM.UR ---
Discharge Commission Associate Susu reached out. Certified Orthotist is looking at referral and admissions Susu is checking [employer] benefits. Will keep following up. Plan: [facility] Acceptance Susu Melendez Discharge Commission Associate
--- NOTE | 2022-01-06 16:10 | CASEMGMT ---
Social Work At this time, referral has been sent to [facility] and they have not yet made a decision on acceptance of patient. SW updated pt niece about this and that [facility] has denied. Pt will be here through the weekend to find accepting facility. LAI Smyth
[2022-01-06] MEDS: Acetaminophen 325 MG Tablet 650 MG PO (20:57)
[2022-01-06] MEDS: Atorvastatin Calcium 80 MG Tablet PO (20:57)
[2022-01-07 04:31] VITALS: BP 124/52; PULSE 66; RESP 18; TEMP 36.4; O2SAT 96
[2022-01-07 06:31] LABS: Absolute Lymphocyte Count 0.97 X10^3/uL (0.83-4.51); Absolute Neutrophil Count 6.3 X10^3/uL (2.0-7.7); Basophil# 0.04 X10^3/uL; Basophil% 0.5 % (0-1); Eosinophil# 0.06 X10^3/uL; Eosinophils% 0.7 % (0-5); Hematocrit 26.6 % (40-54); Hemoglobin 8.8 g/dL (13.0-16.5); Lymphocyte # 0.97 X10^3/ul (0.83-4.51); Lymphocyte % 11.5 % (19-41); Mean Corp Hgb Conc 33.1 g/dL (32-36); Mean Corpuscular Hgb 32.8 pg (27.0-32.0); Mean Corpuscular Volume 99.3 fL (80-94); Mean Platelet Vol. 10.1 fl (6.2-12.0); Monocyte# 0.99 X10^3/uL; Monocyte% 11.8 % (0-10); NRBC Flagged by Analyzer 0 % (0-5); Neutrophil # 6.33 X10^3/uL (2.7-7.7); Neutrophil % 75.1 % (47-70); Platelet Count 475 K/mm3 (150-450); RBC Distribution Width CV 12.3 % (11.6-14.6); RBC Distribution Width SD 44.4 fl (35.1-43.9); Red Blood Count 2.68 M/mm3 (4.6-6.2); White Blood Count 8.4 K/mm3 (4.4-11.0)
[2022-01-07 06:53] LABS: Anion Gap 5 (5-15); BUN 19 mg/dL (7-18); Calcium,Total 8.5 mg/dL (8.5-10.1); Chloride 105 mmol/L (98-107); Creatinine, Serum 0.95 mg/dL (0.70-1.30); EST Glomerular Filtration Rate 81 mL/min (>60); Est Glom Filt Rate - Afr Amer 98 mL/min (>60); Estimated Creatinine Clearance 43.66 ml/min; Glucose 103 mg/dL (74-106); Potassium 3.9 mmol/L (3.5-5.1); Sodium Level 139 mmol/L (136-145)
[2022-01-07] MEDS: Menthol/Lanolin/Calamine/Znox 113 GM Tube 1 APPLIC TOPICAL ×2 (09:15→20:49)
[2022-01-07 09:16] VITALS: PULSE 80
[2022-01-07] MEDS: Docusate Sodium 100 MG Capsule PO ×2 (09:16→20:49)
[2022-01-07] MEDS: Metoprolol Tartrate 25 MG Tablet 37.5 MG PO ×2 (09:16→20:49)
[2022-01-07] MEDS: APIXABAN 5 MG TABLET PO ×2 (09:16→20:49)
[2022-01-07] MEDS: Lisinopril 5 MG Tablet PO (09:19)
[2022-01-07] MEDS: Pantoprazole Sodium 40 MG Tablet PO (09:19)
[2022-01-07] MEDS: amLODIPine 10 MG Tablet PO (09:19)
--- NOTE | 2022-01-07 10:26 | PN.HOSP_ITS ---
Subjective Subjective Patient seen and examined. He was sleeping calmly in bed and had no active complaints. He had an uneventful night and review of systems otherwise negative. He is awaiting placement. Objective Data Objective Data Vital Signs: Vital Signs Temp Pulse Resp BP Pulse Ox O2 Del Method 97.5 F L 80 18 124/52 H 96 Room Air 01/07/22 04:31 01/07/22 09:16 01/07/22 04:31 01/07/22 04:31 01/07/22 04:31 01/07/22 09:22 Oxygen Delivery Method Room Air Weight: 104 lb 8 oz Body Mass Index (BMI) 17.9 Intake & Output: Intake and Output for Last 24 Hours 01/05/22 01/06/22 01/07/22 23:59 23:59 23:59 Intake Total 750 / 750 650 / 650 Balance 750 / 750 650 / 650 Medical Nutrition Assessment Dietitian: Malnutrition Criteria Met Start: 01/03/22 11:28 Freq: Status: Active Protocol: Document 01/03/22 12:16 RMA (Rec: 01/03/22 12:16 RMA [id number]) Nutrition Malnutrition Evidence of Malnutrition Exists Yes Malnutrition (severe): Chronic Evidenced By Suboptimal Energy Intake ( Severe),Weight Loss (Severe), Physical Changes (Severe) Intake Problem Inadequate Oral Intake Etiology related to pending surgery/hip fx Signs/Symptoms as evidenced by NPO Status Active Problem Clinical Problem Chronic Disease or Condition Related Malnutrition Etiology Severe protein/calorie malnutrition in the context of chronic disease and debility related to inadequate oral intake and weakness Signs/Symptoms as evidenced by BMI 18.0, 12% wt loss x 3 months, PO meeting less than 50% estimated nutrition needs x past 3-6 months, signs of muscle/fat wasting in the face, orbitals, clavicle, arms and legs and currently NPO for surgery Status Active Problem Recommendation Dietitian Recommendations/Changes Recommend advance diet post-op as medically able to liberalized Regular. Add 120ml Ensure enlive 4 times per day w/ medpass as diet resumed after surgery. May need to consider TF support if PO remains inadequate as diet advanced. Lab / Micro Data Result Diagrams: 01/07/22 05:40 01/07/22 05:40 Labs: Laboratory Results - last 24 hr 01/07/22 05:40: WBC 8.4, RBC 2.68 L, Hgb 8.8 L, Hct 26.6 L, MCV 99.3 H, MCH 32.8 H, MCHC 33.1, RDW Std Deviation 44.4 H, RDW Coeff of Elizabeth 12.3, Plt Count 475 H, MPV 10.1, Immature Gran % (Auto) 0.400, Neut % (Auto) 75.1 H, Lymph % (Auto) 11.5 L, [place] % (Auto) 11.8 H, Eos % (Auto) 0.7, Baso % (Auto) 0.5, Absolute Neuts (auto) 6.3, Absolute Lymphs (auto) 0.97, Nucleated RBC % 0 01/07/22 05:40: Sodium 139, Potassium 3.9, Chloride 105, Carbon Dioxide 29.0, Anion Gap 5, BUN 19 H, Creatinine 0.95, Estim Creat Clear Calc 43.66, Est GFR (MDRD) Af Amer 98, Est GFR (MDRD) Non-Af 81, BUN/Creatinine Ratio 20.0, Glucose 103, Calcium 8.5 Micro: Microbiology 01/02/22 13:22 Nasal Secretion SARS-CoV-2 Antigen (Rapid) - Final Physical Exam Const alert Orientation / Consciousness: confused and disoriented HEENT head/scalp atraumatic and moist oral mucous membranes Mouth: oral and palatal mucosa normal Eyes PERRL, EOMs intact bilaterally and conjunctivae normal Neck no lymphadenopathy, supple and no JVD Resp normal respiratory effort, no retractions, no use of accessory muscles and clear to auscultation bilaterally Cardio regular rate, regular rhythm, S1 normal heart sound, S2 normal heart sound and no murmurs GI normal to inspection, nondistended, normoactive bowel sounds, soft to palpation, non-tender and non-distended Extremity no clubbing, cyanosis or edema Extremity Narrative: intact dressing over surgical site at right hip Neuro CN's II-XII intact bilaterally and moves all extremities Neuro Narrative: confused Sensorium / Orientation: awake and alert Motor Exam: strength 5/5 throughout Psych Psych Narrative: flat affect Assessment & Plan Assessment/Plan (1) Fracture of hip, right, closed: PLAN: Plan #Debility due to traumatic right hip fracture * s/p right hemiarthroplasty * today is POD 4 * PT/OT on board. Fall precautions * continue current pain meds * #Leucocytosis * wbc is down to 12.3 today * likely reactive due to surgery * will monitor * #Hyperglycemia: resolved #History of CVA: eliquis. on statin #CAD s/p PCI: On eliquis and plavix. continue metoprolol, lisinopril and statin. #Anemia: * Hb is 8.4 today. Baseline is around 11. * There is due to acute blood loss from surgery. Will monitor. #Paroxysmal afib: on metoprolol. on eliquis. #Hypertension; on metoprolol, amlodipine and lisinopril. IV hydralazine prn #Hyperlipidemia: on statin DVT prophylaxis; on eliquis Code status: DNRCC Disposition: awaiting placement Charges/Coding Visit Charges Inpatient E&M: 26137 Subs Hosp L2
[2022-01-07 10:30] VITALS: BP 114/43; PULSE 75; RESP 16; TEMP 36.7; O2SAT 95
[2022-01-07 15:00] VITALS: BP 108/50; PULSE 70; RESP 16; TEMP 36.6; O2SAT 97
[2022-01-07 20:46] VITALS: BP 127/42; PULSE 83; RESP 18; TEMP 36.6; O2SAT 97
[2022-01-07 20:49] VITALS: PULSE 83
[2022-01-07] MEDS: Atorvastatin Calcium 80 MG Tablet PO (20:49)
[2022-01-08 02:57] VITALS: BP 117/67; PULSE 63; RESP 18; TEMP 36.7; O2SAT 98
[2022-01-08 06:14] LABS: Absolute Lymphocyte Count 0.98 X10^3/uL (0.83-4.51); Absolute Neutrophil Count 5.3 X10^3/uL (2.0-7.7); Basophil# 0.05 X10^3/uL; Basophil% 0.7 % (0-1); Eosinophil# 0.16 X10^3/uL; Eosinophils% 2.1 % (0-5); Hematocrit 24.7 % (40-54); Hemoglobin 8.1 g/dL (13.0-16.5); Lymphocyte # 0.98 X10^3/ul (0.83-4.51); Lymphocyte % 13.1 % (19-41); Mean Corp Hgb Conc 32.8 g/dL (32-36); Mean Corpuscular Hgb 32.3 pg (27.0-32.0); Mean Corpuscular Volume 98.4 fL (80-94); Mean Platelet Vol. 9.4 fl (6.2-12.0); Monocyte# 0.96 X10^3/uL; Monocyte% 12.8 % (0-10); NRBC Flagged by Analyzer 0 % (0-5); Neutrophil # 5.29 X10^3/uL (2.7-7.7); Neutrophil % 70.8 % (47-70); Platelet Count 472 K/mm3 (150-450); RBC Distribution Width CV 12.4 % (11.6-14.6); RBC Distribution Width SD 44.6 fl (35.1-43.9); Red Blood Count 2.51 M/mm3 (4.6-6.2); White Blood Count 7.5 K/mm3 (4.4-11.0)
[2022-01-08 06:45] LABS: Anion Gap 5 (5-15); BUN 17 mg/dL (7-18); BUN/Creat Ratio 20.2 RATIO (10-20); Chloride 105 mmol/L (98-107); Creatinine, Serum 0.84 mg/dL (0.70-1.30); EST Glomerular Filtration Rate 94 mL/min (>60); Est Glom Filt Rate - Afr Amer 114 mL/min (>60); Estimated Creatinine Clearance 49.38 ml/min; Glucose 107 mg/dL (74-106); Potassium 3.9 mmol/L (3.5-5.1); Sodium Level 138 mmol/L (136-145)
[2022-01-08 08:20] VITALS: BP 114/91; PULSE 64; RESP 16; TEMP 36.9; O2SAT 98
[2022-01-08 08:21] VITALS: BP 114/91; PULSE 64
[2022-01-08] MEDS: Metoprolol Tartrate 25 MG Tablet 37.5 MG PO (08:21)
[2022-01-08] MEDS: Menthol/Lanolin/Calamine/Znox 113 GM Tube 1 APPLIC TOPICAL ×2 (08:21→20:39)
[2022-01-08] MEDS: APIXABAN 5 MG TABLET PO ×2 (08:22→20:38)
[2022-01-08] MEDS: amLODIPine 10 MG Tablet PO (08:22)
[2022-01-08] MEDS: Lisinopril 5 MG Tablet PO (08:23)
[2022-01-08] MEDS: Pantoprazole Sodium 40 MG Tablet PO (08:23)
[2022-01-08] MEDS: Docusate Sodium 100 MG Capsule PO ×2 (08:23→20:38)
--- NOTE | 2022-01-08 11:14 | PN.HOSP_ITS ---
Subjective Subjective Patient seen and examined. Was lying comfortably in bed. He remains disoriented so unable to do review of systems but no active events overnight per his nurses. Objective Data Objective Data Vital Signs: Vital Signs Temp Pulse Resp BP Pulse Ox O2 Del Method 98.5 F 64 16 114/91 H 98 Room Air 01/08/22 08:20 01/08/22 08:21 01/08/22 08:20 01/08/22 08:21 01/08/22 08:20 01/08/22 08:20 Oxygen Delivery Method Room Air Weight: 104 lb 8 oz Body Mass Index (BMI) 17.9 Intake & Output: Intake and Output for Last 24 Hours 01/06/22 01/07/22 01/08/22 23:59 23:59 23:59 Intake Total 650 / 650 Balance 650 / 650 Medical Nutrition Assessment Dietitian: Malnutrition Criteria Met Start: 01/03/22 11:28 Freq: Status: Active Protocol: Document 01/07/22 10:36 MOUSTAPHA (Rec: 01/07/22 10:36 [email or web address] [id number]) Nutrition Malnutrition Evidence of Malnutrition Exists Yes Malnutrition (severe): Chronic Evidenced By Suboptimal Energy Intake ( Severe),Weight Loss (Severe), Physical Changes (Severe) Intake Problem Inadequate Oral Intake Etiology related to pt confusion/ dementia and issues w/ dysphagia Signs/Symptoms as evidenced by total feed and mech altered diet Status Active Problem Clinical Problem Chronic Disease or Condition Related Malnutrition Etiology Severe protein/calorie malnutrition in the context of chronic disease and debility related to inadequate oral intake and weakness Signs/Symptoms as evidenced by BMI 16.4, additional 8.9% wt loss since last review (4 days), need for mechanically altered diet consistences and po intake meeting less than 50% estimated nutrition needs x past 3-6 months 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 Continue 120ml Ensure enlive 4 times per day w/ medpass. Will add magic cup or ensure pudding w/ meals for increased nutrition if consumed. Will provide fortified foods at meals for increased nutrition if consumed. May need to consider TF support if continued wt loss and if in accordance to pt/ family wishes to help prevent further decline in pt nutritional status. Lab / Micro Data Result Diagrams: 01/08/22 06:00 01/08/22 06:00 Labs: Laboratory Results - last 24 hr 01/08/22 06:00: WBC 7.5, RBC 2.51 L, Hgb 8.1 L, Hct 24.7 L, MCV 98.4 H, MCH 32.3 H, MCHC 32.8, RDW Std Deviation 44.6 H, RDW Coeff of Elizabeth 12.4, Plt Count 472 H, MPV 9.4, Immature Gran % (Auto) 0.500, Neut % (Auto) 70.8 H, Lymph % (Auto) 13.1 L, [place] % (Auto) 12.8 H, Eos % (Auto) 2.1, Baso % (Auto) 0.7, Absolute Neuts (auto) 5.3, Absolute Lymphs (auto) 0.98, Nucleated RBC % 0 01/08/22 06:00: Sodium 138, Potassium 3.9, Chloride 105, Carbon Dioxide 28.0, Anion Gap 5, BUN 17, Creatinine 0.84, Estim Creat Clear Calc 49.38, Est GFR (MDRD) Af Amer 114, Est GFR (MDRD) Non-Af 94, BUN/Creatinine Ratio 20.2 H, Glucose 107 H, Calcium 8.0 L Micro: Microbiology 01/02/22 13:22 Nasal Secretion SARS-CoV-2 Antigen (Rapid) - Final Physical Exam Const alert Orientation / Consciousness: confused and disoriented HEENT head/scalp atraumatic and moist oral mucous membranes Head and Scalp: normocephalic Mouth: oral and palatal mucosa normal Eyes PERRL, EOMs intact bilaterally and conjunctivae normal Neck no lymphadenopathy, supple and no JVD Resp normal respiratory effort, no retractions, no use of accessory muscles and clear to auscultation bilaterally Cardio regular rate, regular rhythm, S1 normal heart sound, S2 normal heart sound and no murmurs GI normal to inspection, nondistended, normoactive bowel sounds, soft to palpation, non-tender and non-distended Extremity no clubbing, cyanosis or edema Extremity Narrative: intact dressing over surgical site at right hip Neuro CN's II-XII intact bilaterally, moves all extremities and no focal motor de ficits Neuro Narrative: confused Sensorium / Orientation: awake and alert Motor Exam: strength 5/5 throughout Psych Psych Narrative: flat affect Assessment & Plan Assessment/Plan (1) Fracture of hip, right, closed: PLAN: Plan #Debility due to traumatic right hip fracture * s/p right hemiarthroplasty * today is POD 5 * PT/OT on board. Fall precautions * continue current pain meds * #Leucocytosis * resolved * #Hyperglycemia: resolved #History of CVA: eliquis. on statin #CAD s/p PCI: On eliquis and plavix. continue metoprolol, lisinopril and statin. #Anemia: * Hb is down to 8.1 today. Baseline is around 11. * There is due to acute blood loss from surgery. Will monitor. * start on oral iron supplements. * transfuse if Hb <7 #Paroxysmal afib: on metoprolol. on eliquis. #Hypertension; on metoprolol, amlodipine and lisinopril. IV hydralazine prn #Hyperlipidemia: on statin DVT prophylaxis; on eliquis Code status: DNRCC Disposition: awaiting placement Charges/Coding Visit Charges Inpatient E&M: 71142 Subs Hosp L2
[2022-01-08 11:43] LABS: Ferritin 915 ng/mL (26-388); Iron 20 ug/dL (65-175); Iron Binding Capacity,Total 162 ug/dL (250-450); PERCENT IRON SATURATION 12.3 % (15.0-55.0)
[2022-01-08] MEDS: Ferrous Sulfate 325 MG Tablet PO ×2 (11:54→17:21)
[2022-01-08 14:30] VITALS: BP 101/55; PULSE 62; RESP 16; TEMP 37.3; O2SAT 97
[2022-01-08 20:32] VITALS: BP 94/59; PULSE 72; RESP 18; TEMP 37.2; O2SAT 96
[2022-01-08] MEDS: Atorvastatin Calcium 80 MG Tablet PO (20:38)
[2022-01-08] MEDS: Acetaminophen 325 MG Tablet 650 MG PO (20:38)
[2022-01-08 20:39] VITALS: BP 94/59
[2022-01-09 02:52] VITALS: BP 127/49; PULSE 72; RESP 18; TEMP 36.3; O2SAT 95
[2022-01-09 07:17] LABS: Absolute Lymphocyte Count 0.93 X10^3/uL (0.83-4.51); Absolute Neutrophil Count 4.8 X10^3/uL (2.0-7.7); Basophil# 0.05 X10^3/uL; Basophil% 0.7 % (0-1); Eosinophil# 0.27 X10^3/uL; Eosinophils% 3.8 % (0-5); Hematocrit 23.4 % (40-54); Hemoglobin 7.7 g/dL (13.0-16.5); Lymphocyte # 0.93 X10^3/ul (0.83-4.51); Lymphocyte % 13.1 % (19-41); Mean Corp Hgb Conc 32.9 g/dL (32-36); Mean Corpuscular Hgb 32.4 pg (27.0-32.0); Mean Corpuscular Volume 98.3 fL (80-94); Mean Platelet Vol. 9.3 fl (6.2-12.0); Monocyte% 14.1 % (0-10); NRBC Flagged by Analyzer 0 % (0-5); Neutrophil # 4.81 X10^3/uL (2.7-7.7); Neutrophil % 67.9 % (47-70); Platelet Count 454 K/mm3 (150-450); RBC Distribution Width CV 12.5 % (11.6-14.6); RBC Distribution Width SD 44.8 fl (35.1-43.9); Red Blood Count 2.38 M/mm3 (4.6-6.2); White Blood Count 7.1 K/mm3 (4.4-11.0)
--- NOTE | 2022-01-09 07:44 | CASEMGMT ---
Discharge Pharmacy Clinical Coordinator Susu from [facility] reached out. Patient has been accepted under medicaid pending. Patient can go to [facility] when medically ready. JIM Hall notified. Plan: [facility] Discharge Pharmacy Clinical Coordinator
[2022-01-09 07:53] LABS: Anion Gap 4 (5-15); BUN 18 mg/dL (7-18); BUN/Creat Ratio 19.7 RATIO (10-20); Calcium,Total 8.1 mg/dL (8.5-10.1); Chloride 108 mmol/L (98-107); Creatinine, Serum 0.91 mg/dL (0.70-1.30); EST Glomerular Filtration Rate 85 mL/min (>60); Est Glom Filt Rate - Afr Amer 103 mL/min (>60); Estimated Creatinine Clearance 45.58 ml/min; Glucose 111 mg/dL (74-106); Potassium 3.9 mmol/L (3.5-5.1); Sodium Level 139 mmol/L (136-145)
[2022-01-09 09:30] VITALS: BP 114/65; PULSE 78; RESP 18; TEMP 36.5; O2SAT 96
[2022-01-09 09:44] VITALS: PULSE 78
[2022-01-09] MEDS: Metoprolol Tartrate 25 MG Tablet 37.5 MG PO (09:44)
[2022-01-09] MEDS: Docusate Sodium 100 MG Capsule PO (09:44)
[2022-01-09 09:45] VITALS: O2SAT 95
[2022-01-09] MEDS: amLODIPine 10 MG Tablet PO (09:45)
[2022-01-09] MEDS: Lisinopril 5 MG Tablet PO (09:45)
[2022-01-09] MEDS: Pantoprazole Sodium 40 MG Tablet PO (09:45)
[2022-01-09] MEDS: APIXABAN 5 MG TABLET PO (09:45)
[2022-01-09] MEDS: Acetaminophen 325 MG Tablet 650 MG PO (09:45)
[2022-01-09] MEDS: Menthol/Lanolin/Calamine/Znox 113 GM Tube 1 APPLIC TOPICAL (09:46)
--- NOTE | 2022-01-09 09:59 | PCM.TXEXTCAR ---
Diet Diet Order/Speech Therapy: 01/03/22 20:17 Diet: Regular - General Food consistency:: Soft & Bite Sized Liquid Consistency:: Regular/Thin Type of Dietary Supplement:: EP or MC w/ meals tid Is pt able to select menu?: No Diet Comments: pt is a feed please bring to desk; FORTIFIED FOODS, EP or MC tid w/ meals Routine Orders/Code Status Suppository Type: Dulcolax 10mg Suppository Frequency: Daily PRN Routine Lab Work: CBC (within 3 days) and - (CMP within 3 days) Code Status: DNC Wound(s) Scrotum: Wound Type: Pressure Injury Right elbow: Wound Type: scab right hip: Wound Type: Surgical Incision coccyx: Wound Type: Pressure Injury R inner thigh: Wound Type: Skin Tear Therapies Weight Bearing: Weight bearing as tolerated Problem/Diagnosis (1) Fracture of hip, right, closed: Status: Acute Code(s): S72.001A - Fracture of unspecified part of neck of right femur, initial encounter for closed fracture Allergies/Procedures Done in Hospital Allergies No Known Allergies Allergy (Verified 07/31/19 08:20) Procedures: - (Right hip hemiarthroplasty 01/03/22) Type of Care/Length of Stay Estimated LOS: Convalescent Care Less Than 30 days Type of Care Needed: Skilled Rehab Potential: Good Prognosis: Good Additional Orders/Day of Discharge Day of Discharge: 01/09/22 Dietary and Speech Recommendations Dietitian Recommendations/Changes: Recommend continue liberalized Regular diet w/ consistencies per RUBBER PRESS OPERATOR. Continue 120ml Ensure enlive 4 times per day w/ medpass. Will add magic cup or ensure pudding w/ meals for increased nutrition if consumed. Will provide fortified foods at meals for increased nutrition if consumed. May need to consider TF support if continued wt loss and if in accordance to pt/family wishes to help prevent further decline in pt nutritional status. Speech Linguistic Eval Summary: Patient oriented to first name only, able to recall last name w/ use of minimal to moderate cueing. Extremely confused. Suspect aphasia/apraxia further compromised by dysarthria. Speech is unintelligible. Speaking in jargon and/or paraphaisas - speech difficult to understand so hard to formally assess. Unable to recall current location, situation or month / yr. Confrontation naming of objects on tray table - 50% acc. Simple Y/N - no response by pt. Able to count 1-10 w/ min-moderate cueing. Able to count 1-5 w/ intelligible speech, by #6 speech unintelligible. Able to repeat SIX w/ ST model. Unable to repeat #7-10 w/ max cueing. Discharge Plan Admission Admit Date/Time: 01/02/22 16:12 Primary Reason for Your Visit: Debility/right hip fracture Attending Provider: Zoila Sierra Primary Care Provider: [place], [place] Consulting Providers: Jayson Funk ; Alma Crowe ; Amy Marin Instructions Additional Instructions / Restrictions: Continue with Tylenol and tramadol as needed for pain control.? Follow-up with 2 week postoperative scheduled follow-up with [facility] for x-rays.? Okay to shower after the dressing is removed and only use gentle soap and water.? Do not submerge underwater for 6 weeks postoperatively.? Discharge Orders/Prescriptions Prescriptions: New melatonin 3 mg Tablet 3 mg PO QHS PRN PRN (Reason: Insomnia) Qty: 0 0RF tramadol 50 mg Tablet 50 mg PO Q6H PRN PRN (Reason: Pain Score 4-10) 3 Days Qty: 12 0RF ferrous sulfate [FeroSul] 325 mg (65 mg iron) Tablet 325 mg PO 1200,1700 Qty: 0 0RF menthol-zinc oxide [Calmoseptine] 0.44-20.6 % Ointment 1 applic topical BID Qty: 0 0RF Protocol: *Topical Application Instructions APPLICATION INSTRUCTIONS: perirectal area Ensure Enlive 0.08 gram-1.5 kcal/mL Liquid 120 ml PO 4X/DAY Qty: 0 0RF Continued atorvastatin 80 MG tablet 80 mg PO QHS clopidogrel 75 MG tablet 75 mg PO DAILY pantoprazole 40 MG tablet,delayed release (DR/EC) 40 mg PO DAILY docusate sodium 100 MG capsule 100 mg PO BID lisinopril 5 MG tablet 5 mg PO DAILY amlodipine 10 MG tablet 10 mg PO DAILY metoprolol tartrate 25 MG tablet 37.5 mg PO BID apixaban 5 MG tablet 5 mg PO BID Referrals / Follow Up: Jayson Funk MD [Med Staff - Active Staff] - 01/18/22 1:15 [facility] - Disposition Disposition (needs filled in before D/C Order can be placed): [facility]
--- NOTE | 2022-01-09 10:07 | PCM.DC.SUM ---
Providers Date of Admission: 01/02/22 Date of Discharge: 01/09/22 Primary Care Physician: [facility] Consultations 01/02/22 19:36 Consult: Orthopedics Routine Consulting Provider: Jayson Funk Reason for Consult: right hip fracture EMERGENT Consult: No MD Notified: Yes Date Notified: 01/02/22 Time Notified: 19:36 Method of Notification: notified in ER Reason For Visit: FALL, R HIP FRACTURE Diagnosis Discharge Diagnosis (1) Fracture of hip, right, closed: Status: Acute Code(s): S72.001A - Fracture of unspecified part of neck of right femur, initial encounter for closed fracture (2) Malnourished: Status: Acute Code(s): E46 - Unspecified protein-calorie malnutrition Medications at Discharge Home Medications amlodipine 10 mg tablet 10 mg PO DAILY bp 07/31/19 atorvastatin 80 mg tablet 80 mg PO QHS cholesterol 07/31/19 clopidogrel 75 mg tablet 75 mg PO DAILY antiplatlet 07/31/19 docusate sodium 100 mg capsule 100 mg PO BID constipation 07/31/19 lisinopril 5 mg tablet 5 mg PO DAILY blood pressure 07/31/19 metoprolol tartrate 25 mg tablet 37.5 mg PO BID heart 07/31/19 pantoprazole 40 mg tablet,delayed release 40 mg PO DAILY gerd 07/31/19 apixaban 5 mg tablet 5 mg PO BID blood thinner 01/02/22 ferrous sulfate 325 mg (65 mg iron) tablet (FeroSul) 325 mg PO 1200,1700 #0 tabs 01/09/22 food supplemt, lactose-reduced 0.08 gram-1.5 kcal/mL oral liquid (Ensure Enlive) 120 ml PO 4X/DAY #0 mL 01/09/22 melatonin 3 mg tablet 3 mg PO QHS PRN PRN Insomnia #0 tabs 01/09/22 menthol 0.44 %-zinc oxide 20.6 % topical ointment (Calmoseptine) 1 applic topical BID #0 grams 01/09/22 tramadol 50 mg tablet 50 mg PO Q6H PRN PRN Pain Score 4-10 3 days #12 tabs 01/09/22 Hospital Course Operations total hip replacement (right hip, 01/03/22) Procedures None Summary of Care Provided Minutes Spent on Discharge: 40 Hospital Course: 76-year-old male with past medical history dementia, history of CVA with resultant dysarthria, CAD status post PCI, hypertension who comes in after mechanical fall, a day prior to admission. Patient lives with his niece and her family. He fell and landed on his right hip. Patient was on Plavix and apixaban. CT of the brain was unremarkable. Hip and pelvic x-ray showed business of occult fracture of the proximal right femur with cephalic migration of the distal femoral component. CT of the lower extremity confirms subacute basicervical fracture with resolving hematoma encephalitic migration of the distal femoral component. Orthopedics was consulted from the ED. Patient underwent a right hip hemiarthroplasty on 01/03/22. Patient continued to remain fairly stable in the postoperative period. PT and OT were consulted as well as social work consulted for discharge. Patient was resumed on his Eliquis and Plavix. He was also started on oral iron supplements as well as stool softeners. Patient was discharged to [facility]. He will follow-up with orthopedics as scheduled. Physical Exam Narrative Physical exam: General: Alert, oriented to self, aphasic, moaning, appears to be at baseline HEENT: Atraumatic Oral: Moist Mucosa Neck: Supple Lungs: Clear to auscultation Cardiovascular: HS I+II, regular, no murmurs Abdomen: Bowel Sounds Present, Soft, Non Tender Extremities: No edema, dressing over the right anterior thigh is clean and intact. Skin: No rashes, No breakdown Neurological: Grossly intact Psych/Mental Status: Appropriate Medical Records Data Medical Nutrition Assessment Dietitian: Malnutrition Criteria Met Start: 01/03/22 11:28 Freq: Status: Active Protocol: Document 01/07/22 10:36 [facility] (Rec: 01/07/22 10:36 [facility] [id number]) Nutrition Malnutrition Evidence of Malnutrition Exists Yes Malnutrition (severe): Chronic Evidenced By Suboptimal Energy Intake ( Severe),Weight Loss (Severe), Physical Changes (Severe) Intake Problem Inadequate Oral Intake Etiology related to pt confusion/ dementia and issues w/ dysphagia Signs/Symptoms as evidenced by [facility] Status Active Problem Clinical Problem Chronic Disease or Condition Related Malnutrition Etiology Severe protein/calorie malnutrition in the context of chronic disease and debility related to inadequate oral intake and weakness Signs/Symptoms as evidenced by BMI 16.4, additional 8.9% wt loss since last review (4 days), need for mechanically altered diet consistences and po intake meeting less than 50% 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 Continue 120ml Ensure enlive 4 times per day w/ medpass. Will add magic cup or ensure pudding w/ meals for increased nutrition if consumed. Will provide fortified foods at meals for increased nutrition if consumed. May need to consider TF support if continued wt loss and if in accordance to pt/ family wishes to help prevent further decline in pt nutritional status. Weight / BMI Weight Weight: 47.4 kg Body Mass Index (BMI) 17.9 ABG / Lab / Microbiology Data Result Diagrams: 01/09/22 07:00 01/09/22 07:00 Laboratory: Laboratory Results - last 24 hr 01/08/22 06:00: Iron 20 L, TIBC 162 L, Iron Saturation 12.3 L, Ferritin 915 H 01/09/22 07:00: WBC 7.1, RBC 2.38 L, Hgb 7.7 L, Hct 23.4 L, MCV 98.3 H, MCH 32.4 H, MCHC 32.9, RDW Std Deviation 44.8 H, RDW Coeff of Elizabeth 12.5, Plt Count 454 H, MPV 9.3, Immature Gran % (Auto) 0.400, Neut % (Auto) 67.9, Lymph % (Auto) 13.1 L, [place] % (Auto) 14.1 H, Eos % (Auto) 3.8, Baso % (Auto) 0.7, Absolute Neuts (auto) 4.8, Absolute Lymphs (auto) 0.93, Nucleated RBC % 0 01/09/22 07:00: Sodium 139, Potassium 3.9, Chloride 108 H, Carbon Dioxide 27.0, Anion Gap 4 L, BUN 18, Creatinine 0.91, Estim Creat Clear Calc 45.58, Est GFR (MDRD) Af Amer 103, Est GFR (MDRD) Non-Af 85, BUN/Creatinine Ratio 19.7, Glucose 111 H, Calcium 8.1 L Microbiology: Microbiology 01/02/22 13:22 Nasal Secretion SARS-CoV-2 Antigen (Rapid) - Final D/C Instructions Discharge Diet: No restrictions Meaningful Use Info Meaningful Use Diagnoses (Choose all that apply): None applicable Discharge Plan Admission Admit Date/Time: 01/02/22 16:12 Primary Reason for Your Visit: Debility/right hip fracture Attending Provider: Zoila Sierra Primary Care Provider: [place], [place] Consulting Providers: Jayson Funk ; Alma Crowe ; Amy Marin Instructions Additional Instructions / Restrictions: Continue with Tylenol and tramadol as needed for pain control.? Follow-up with 2 week postoperative scheduled follow-up with [place] for x-rays.? Okay to shower after the dressing is removed and only use gentle soap and water.? Do not submerge underwater for 6 weeks postoperatively.? Discharge Orders/Prescriptions Prescriptions: New melatonin 3 mg Tablet 3 mg PO QHS PRN PRN (Reason: Insomnia) Qty: 0 0RF tramadol 50 mg Tablet 50 mg PO Q6H PRN PRN (Reason: Pain Score 4-10) 3 Days Qty: 12 0RF ferrous sulfate [FeroSul] 325 mg (65 mg iron) Tablet 325 mg PO 1200,1700 Qty: 0 0RF menthol-zinc oxide [Calmoseptine] 0.44-20.6 % Ointment 1 applic topical BID Qty: 0 0RF Protocol: *Topical Application Instructions APPLICATION INSTRUCTIONS: perirectal area Ensure Enlive 0.08 gram-1.5 kcal/mL Liquid 120 ml PO 4X/DAY Qty: 0 0RF Continued atorvastatin 80 MG tablet 80 mg PO QHS clopidogrel 75 MG tablet 75 mg PO DAILY pantoprazole 40 MG tablet,delayed release (DR/EC) 40 mg PO DAILY docusate sodium 100 MG capsule 100 mg PO BID lisinopril 5 MG tablet 5 mg PO DAILY amlodipine 10 MG tablet 10 mg PO DAILY metoprolol tartrate 25 MG tablet 37.5 mg PO BID apixaban 5 MG tablet 5 mg PO BID Referrals / Follow Up: Jayson Funk MD [Med Staff - Active Staff] - 01/18/22 1:15 pm [facility] [Primary Care Provider] - Disposition Disposition (needs filled in before D/C Order can be placed): [facility] Facility Charges/Coding Visit Charges Inpatient E&M: 44124 Disch Hosp
--- NOTE | 2022-01-09 10:18 | CASEMGMT ---
Addendum entered by Isabel Newberry 01/09/22 11:26: Per physician, pt is ready for discharge today. Level of Care returned and pt is appropriate for intermediate level of care. Phone call to [facility] and notified of discharge plan. Ayaka agreeable to discharge to [facility] and would like transportation arranged for 3pm. 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 Phone call to Susu at [facility] and updated that pt is discharging today at 3pm. Phone call to Susu at [facility] and they can accept pt today. Orders, PASRR, LOC and negative covid results faxed to [facility]. Nursing updated on discharge time. LAI Smyth Original Note: Social Work [facility] is able to accept pt today. Physician updated and pt is ready for discharge. Level of Care request faxed to [facility]. left with fermin agudelo to notify that pt has been accepted at [facility] and discharge is planned for today. LAI Smyth
[2022-01-09] MEDS: Bisacodyl 10 MG Suppository RC (11:48)
[2022-01-09] MEDS: Ferrous Sulfate 325 MG Tablet PO (11:48)
--- NOTE | 2022-01-09 12:21 | PHA.DC.MR ---
Pharmacy Service has performed discharge medication reconciliation for this patient. The patient's discharge medication list was reviewed for discrepancies and discrepancies were resolved. Home Medications amlodipine 10 mg tablet 10 mg PO DAILY bp 07/31/19 atorvastatin 80 mg tablet 80 mg PO QHS cholesterol 07/31/19 clopidogrel 75 mg tablet 75 mg PO DAILY antiplatlet 07/31/19 docusate sodium 100 mg capsule 100 mg PO BID constipation 07/31/19 lisinopril 5 mg tablet 5 mg PO DAILY blood pressure 07/31/19 metoprolol tartrate 25 mg tablet 37.5 mg PO BID heart 07/31/19 pantoprazole 40 mg tablet,delayed release 40 mg PO DAILY gerd 07/31/19 apixaban 5 mg tablet 5 mg PO BID blood thinner 01/02/22 ferrous sulfate 325 mg (65 mg iron) tablet (FeroSul) 325 mg PO 1200,1700 #0 tabs 01/09/22 food supplemt, lactose-reduced 0.08 gram-1.5 kcal/mL oral liquid (Ensure Enlive) 120 ml PO 4X/DAY #0 mL 01/09/22 melatonin 3 mg tablet 3 mg PO QHS PRN PRN Insomnia #0 tabs 01/09/22 menthol 0.44 %-zinc oxide 20.6 % topical ointment (Calmoseptine) 1 applic topical BID #0 grams 01/09/22 tramadol 50 mg tablet 50 mg PO Q6H PRN PRN Pain Score 4-10 3 days #12 tabs 01/09/22
[2022-01-09 14:35] VITALS: BP 110/57; PULSE 67; RESP 16; TEMP 36.2; O2SAT 99
--- NOTE | 2022-01-09 15:58 | NURSING ---
report called to Miriam at [facility]
== END 2022-01-09 14:50 | disposition skilled nursing facility (03) | DRG 521 ==
LOC: ED 15:57 → MS3 16:44
PROVIDERS: Specialist; Student in an Organized Health Care Education/Training Program; Admitting Provider Family Medicine; Emergency Provider Emergency Medicine; Visit Provider Internal Medicine
PROC: 0SRR01Z Replacement of Right Hip Joint, Femoral Surface with Metal Synthetic Substitute, Open Approach (ICD-10-PCS; CPT 27125; principal; 2022-01-03 11:40)
DX: S72.001A Fracture of unspecified part of neck of right femur, initial encounter for closed fracture (principal); E43 Unspecified severe protein-calorie malnutrition; D62 Acute posthemorrhagic anemia; Z68.1 Body mass index [BMI] 19.9 or less, adult; F03.90 Unspecified dementia, unspecified severity, without behavioral disturbance, psychotic disturbance, mood disturbance, and anxiety; I48.0 Paroxysmal atrial fibrillation; N18.30 Chronic kidney disease, stage 3 unspecified; D53.9 Nutritional anemia, unspecified; E78.5 Hyperlipidemia, unspecified; K21.9 Gastro-esophageal reflux disease without esophagitis; I12.9 Hypertensive chronic kidney disease with stage 1 through stage 4 chronic kidney disease, or unspecified chronic kidney disease; W19.XXXA Unspecified fall, initial encounter; I25.10 Atherosclerotic heart disease of native coronary artery without angina pectoris; Z87.891 Personal history of nicotine dependence; Z86.73 Personal history of transient ischemic attack (TIA), and cerebral infarction without residual deficits; R73.9 Hyperglycemia, unspecified; Z51.5 Encounter for palliative care; Z79.02 Long term (current) use of antithrombotics/antiplatelets; Z79.01 Long term (current) use of anticoagulants; Z66 Do not resuscitate; Z95.5 Presence of coronary angioplasty implant and graft
CPT/HCPCS: 36415; 70450; 73501; 73502; 73700; 76000; 80048; 80053; 81001; 82728; 82962; 83036; 83540; 83550; 83735; 84484; 85025; 85610; 85730; 86850; 86900; 86901; 87426; 87811; 88307; 88311; 92507; 92523; 92610; 93005; 97110; 97162; 97166; 97530; 97535; 97802; 99251; 99284; C1776; J7120; A4216; G0463

== ENCOUNTER 2022-12-23 21:31 | Emergency (ER) | payer OTHER, SELFPAY ==
[2022-12-23 21:33] VITALS: BP 175/76; PULSE 50; RESP 16; TEMP 36.2; O2SAT 98; BMI 18.3
[2022-12-23 21:40] VITALS: BP 175/76; PULSE 50; RESP 16; TEMP 36.2; O2SAT 98
--- NOTE | 2022-12-23 22:10 | EKG12_ITS ---
Test Reason : ALTERED LOC Blood Pressure : / mmHG Vent. Rate : 055 BPM Atrial Rate : 055 BPM P-R Int : 184 ms QRS Dur : 070 ms QT Int : 436 ms P-R-T Axes : 034 014 035 degrees QTc Int : 417 ms Sinus bradycardia Otherwise normal ECG Confirmed by OSKAR BRISCOE, ALVIN ([id number]), editor city DARÍO WOODWARD ([id number]) on 12/28/2022 8:34:16 AM Referred By: JOSE LUIS Confirmed By:WINNIE SCHMITT MD
--- NOTE | 2022-12-23 22:10 | CT_ITS ---
STUDY: CT BRAIN WITHOUT CONTRAST REASON FOR EXAM: Male, 77 years old. Confusion RADIATION DOSAGE (If Supplied By Facility): CTDIvol = ( 44.99 ) mGy, DLP = ( 779.24 ) mGycm TECHNIQUE: Transaxial CT imaging of the brain was performed without administration of intravenous contrast material. Individualized dose optimization techniques were used for this CT. COMPARISON: January 02, 2022 CT head FINDINGS: Normal soft tissue structures. Normal calvarium. There is calcification of the bilateral vertebral arteries. There is mild cerebral atrophy with widening of the extra-axial spaces and ventricular dilatation. There is an area of encephalomalacia in the left hemisphere extending from the left temporal to the parietal lobe compatible with prior MCA infarct. There are small punctate calcifications of the basal ganglia which are seen in the aging brain as a normal variant. Normal brainstem. There is mild cerebellar atrophy. There is no intracranial hemorrhage. There are no findings of an acute ischemic infarction. Normal visualized paranasal sinuses. There is stable appearance of the right eye. Postoperative change. CT/Brain/Head without Contrast IMPRESSION: Stable head CT. Findings consistent with prior left-sided MCA territory infarct. No visualized acute hemorrhage infarct or edema. Electronically Signed: Whitney Piña MD at 0:35 EDT Reading Location ID and State: [facility] / [place] Tel , Service support ,
--- NOTE | 2022-12-23 22:12 | EDS_ITS ---
HPI History of Present Illness Chief Complaint: Alt LOC Informant: patient and SNF Narrative Narrative: Patient presents with less alertness than his baseline. There is also report of some soft stools for a day or so but no reported blood. Evidently nurses staff had trouble getting him to respond. This patient is extremely hard of hearing but he does respond to me. He tells me his name. He told me his date of and it was accurate. He thought it was 1963. I could not understand who he was calling the president but it was not the current president. He denies any pain shortness of breath nausea. He states he feels pretty good. I think review of systems is limited both due to being extremely hard of hearing and he also has dementia and baseline confusion. He essentially denies everything. [facility] Medical History CAD (coronary artery disease) CKD (chronic kidney disease) stage 3, GFR 30-59 ml/min Constipation Dementia Hypertension PAF (paroxysmal atrial fibrillation) Sleep apnea Stroke/cerebrovascular accident Home Medications amlodipine 10 mg tablet 10 mg PO DAILY bp 07/31/19 [History Last Taken 01/01/22] atorvastatin 80 mg tablet 80 mg PO QHS cholesterol 07/31/19 [History Last Taken 01/01/22] clopidogrel 75 mg tablet 75 mg PO DAILY antiplatlet 07/31/19 [History Last Taken 01/01/22] docusate sodium 100 mg capsule 100 mg PO BID constipation 07/31/19 [History Last Taken 1 Week Ago ~12/26/21] lisinopril 5 mg tablet 5 mg PO DAILY blood pressure 07/31/19 [History Last Taken 01/01/22] metoprolol tartrate 25 mg tablet 37.5 mg PO BID heart 07/31/19 [History Last Taken 01/01/22] apixaban 5 mg tablet 5 mg PO BID blood thinner 01/02/22 [History Last Taken 01/01/22] ferrous sulfate 325 mg (65 mg iron) tablet (FeroSul) 325 mg PO 1200,1700 #0 tabs 01/09/22 [Rx Last Taken Unknown] melatonin 3 mg tablet 3 mg PO QHS PRN PRN Insomnia #0 tabs 01/09/22 [Rx Last Taken Unknown] menthol 0.44 %-zinc oxide 20.6 % topical ointment (Calmoseptine) 1 applic topical BID #0 grams 01/09/22 [Rx Last Taken Unknown] acetaminophen 325 mg capsule 650 mg PO Q8H PRN PRN fever or pain 12/23/22 [History Last Taken Unknown] acetaminophen 325 mg capsule 650 mg PO QHS 12/23/22 [History Last Taken Unknown] bisacodyl 10 mg rectal suppository (Dulcolax (bisacodyl)) 10 mg IN DAILY PRN constipation 12/23/22 [History Last Taken Unknown] dextromethorphan-guaifenesin 10 mg-100 mg/5 mL oral liquid (Adult Tussin Cough Congestion DM) 20 ml PO Q6H PRN cough 12/23/22 [History Last Taken Unknown] divalproex 125 mg capsule,delayed release sprinkle 125 mg PO Q8H 12/23/22 [History Last Taken Unknown] dorzolamide 2 % eye drops 2 drp ophthalmic (eye) BID 12/23/22 [History Last T aken Unknown] famotidine 20 mg tablet 20 mg PO DAILY 12/23/22 [History Last Taken Unknown] latanoprost 0.005 % eye drops 1 drp ophthalmic (eye) QHS 12/23/22 [History Last Taken Unknown] magnesium hydroxide 400 mg/5 mL oral suspension 30 ml PO DAILY PRN constipation 12/23/22 [History Last Taken Unknown] Allergy/AdvReac Type Severity Reaction Status Date / Time No Known Allergies Allergy Verified 12/23/22 21:33 Family History Mother Heart disease Hypertension HLD (hyperlipidemia) Father Chemical poisoning due to ingestion of food Reported as a john, accidental poisoning via ingestion chemical agents. Surgical History History of coronary artery stent placement History of left knee surgery Social History household members: other details: Lives with his niece and her family, she is h is POA. Smoking Status: Never smoker alcohol intake: never substance use type: does not use ROS ROS ED ROS Narrative Review of systems is extremely limited due to hard of hearing and dementia. Positives below are from long term. Patient denies all symptoms. Constitutional Constitutional ED: Denies fever(s) Gastrointestinal Gastrointestinal: Reports diarrhea EXAM Physical Exam Narrative Exam Narrative: CONSTITUTIONAL: Patient is nontoxic in appearance. The patient looks comfortable. Work of breathing looks normal. He does look a little bit pale. HEENT: No notable trauma. Mucous membranes do seem a bit dry. No sinus tenderness. EYES: No conjunctival injection. No proptosis. Chronic scarring of her right eye. NECK: No meningismus. No JVD. CARDIOVASCULAR: Bradycardic rate. Regular rhythm. I do not hear any notable murmur. No JVD. RESPIRATORY: No respiratory distress. Breathing is unlabored. No wheezes. No rhonchi. No rales. No pain with a deep breath. Saturations are normal at 98% on room air showing no hypoxia. GASTROINTESTINAL: Not distended. Bowel sounds are normal. No tenderness. No guarding. No rebound. No palpable mass. No bruit. GENITOURINARY: No tenderness over the bladder. No CVA tenderness. MUSCULOSKELETAL: Atraumatic. No peripheral edema. No cord. No tenderness along the deep venous system. No asymmetry. Note also prior well-healed right hip scar. NEUROLOGICAL: Patient is alert and oriented to person and date of . He does not know the correct year or where he currently is located. No clear focal deficit noted. He is very hard of hearing and seems to hear best out of his left side. SKIN: No noted rashes. No diaphoresis. No vesicles noted. Mild pallor. PSYCHIATRIC: Patient is calm. Mood is appropriate. He is cooperative and pleasant. Const Vital Signs: 12/23/22 21:33 12/23/22 21:40 Temperature 97.1 F L 97.1 F L Temperature Source Temporal Temporal Pulse Rate 50 L 50 L Respiratory Rate 16 16 Blood Pressure 175/76 H 175/76 H Blood Pressure Mean 109 109 Pulse Ox 98 98 Oxygen Delivery Method Room Air Room Air MDM MDM MDM Narrative Medical decision making narrative: Independent interpretation the patient's single view AP chest x-ray shows no acute process. No infiltrate or pneumothorax. Note is made of some slight increased bowel gas but his abdominal exam is completely normal. Final reading by radiology is no demonstrated acute cardiopulmonary process. My independent interpretation of the patient's CT of his head shows significant encephalomalacia with prior left-sided stroke and calcification of the falx. Final reading is no acute intracranial process but does note the chronic changes. Patient CBC see is normal including white count hemoglobin and platelets. Patient's electrolytes show no marked abnormalities. Minimal elevation in the BUN. Patient's magnesium is normal. Patient's liver function test are normal. Patient's urinalysis shows no sign of infection. I am not seeing any sign of tremor on my exam. Patient is awake alert. He seems to be at or very near his baseline. I do not think he needs to be admitted at this time. He does have some mild bradycardia. But his metoprolol can also be decreased or held for this. But its not affecting his blood pressure. Lab Data Attestation: I reviewed the patient's lab results. Labs: Laboratory Results - last 24 hr 12/23/22 12/23/22 00:40 22:35 WBC 7.0 RBC 4.13 L Hgb 13.8 Hct 41.6 MCV 100.7 H MCH 33.4 H MCHC 33.2 RDW Std Deviation 42.5 RDW Coeff of Elizabeth 11.5 L Plt Count 193 MPV 10.8 Immature Gran % (Auto) 0.300 Neut % (Auto) 61.0 Lymph % (Auto) 22.6 Graves % (Auto) 13.1 H Eos % (Auto) 2.4 Baso % (Auto) 0.6 Absolute Neuts (auto) 4.3 Absolute Lymphs (auto) 1.58 Nucleated RBC % 0 Sodium 142 Potassium 3.6 Chloride 107 Carbon Dioxide 30.0 Anion Gap 5 BUN 20 H Creatinine 0.99 Estim Creat Clear Calc 46.19 Est GFR (MDRD) Af Amer 94 Est GFR (MDRD) Non-Af 78 BUN/Creatinine Ratio 20.3 H Glucose 91 Calcium 8.7 Magnesium 2.2 Total Bilirubin 0.50 AST 18 ALT 20 Alkaline Phosphatase 95 Total Protein 6.8 Albumin 3.6 Globulin 3.2 Albumin/Globulin Ratio 1.1 Urine Color Yellow Urine Clarity Clear Urine pH 8.0 Ur Specific [place] 1.015 Urine Protein Negative Urine Glucose (UA) Normal Urine Ketones 5 H Urine Occult Blood Negative Urine Nitrite Negative Urine Bilirubin Negative Urine Urobilinogen Normal Ur Leukocyte Esterase Negative Urine RBC 0 SEEN Urine WBC 0 SEEN Ur Squamous Epith Cells 0 SEEN Urine Bacteria 0 SEEN Urine Mucus 0 SEEN Radiography Diagnostic Testing: Clinical Impression(s) from Imaging Studies Brain CT 12/23/22 22:10 IMPRESSION: Stable head CT. Findings consistent with prior left-sided MCA territory infarct. No visualized acute hemorrhage infarct or edema. Electronically Signed: Whitney Piña MD at 0:35 EDT , Chest X-Ray 12/23/22 22:15 IMPRESSION: No demonstrated acute cardiopulmonary process. Electronically Signed: Whitney Piña MD at 22:44 EDT , EKG Initial EKG: Comments: My independent interpretation the patient's EKG noted for bradycardia and history of atrial fibrillation shows bradycardic rhythm that could be sinus but could be flutter. It is quite regular. No ventricular ectopy. No acute ST elevation or depression. IN interval, QRS duration and QTc are normal. Discharge Plan Triage Chief Complaint: Alt LOC ED Provider: Ervin Good Dx/Rx/DC Orders Clinical Impression: History of dementia, Bradycardia, History of tremor Instructions: ED Bradycardia Prescriptions: No Action atorvastatin 80 MG tablet 80 mg PO QHS clopidogrel 75 MG tablet 75 mg PO DAILY docusate sodium 100 MG capsule 100 mg PO BID lisinopril 5 MG tablet 5 mg PO DAILY amlodipine 10 MG tablet 10 mg PO DAILY metoprolol tartrate 25 MG tablet 37.5 mg PO BID apixaban 5 MG tablet 5 mg PO BID melatonin 3 mg Tablet 3 mg PO QHS PRN PRN (Reason: Insomnia) Qty: 0 0RF ferrous sulfate [FeroSul] 325 mg (65 mg iron) Tablet 325 mg PO 1200,1700 Qty: 0 0RF menthol-zinc oxide [Calmoseptine] 0.44-20.6 % Ointment 1 applic topical BID Qty: 0 0RF Protocol: *Topical Application Instructions APPLICATION INSTRUCTIONS: perirectal area dorzolamide 2 % drops 2 drp ophthalmic (eye) BID latanoprost 0.005 % drops 1 drp ophthalmic (eye) QHS famotidine 20 mg tablet 20 mg PO DAILY divalproex 125 mg capsule, delayed rel sprinkle 125 mg PO Q8H acetaminophen 325 mg capsule 650 mg PO QHS acetaminophen 325 mg capsule 650 mg PO Q8H PRN PRN (Reason: fever or pain) bisacodyl [Dulcolax (bisacodyl)] 10 mg suppository 10 mg IN DAILY PRN (Reason: constipation) magnesium hydroxide 400 mg/5 mL suspension 30 ml PO DAILY PRN (Reason: constipation) dextromethorphan-guaifenesin [Adult Tussin Cough Congest DM] 10-100 mg/5 mL liquid 20 ml PO Q6H PRN (Reason: cough) [facility] Provider[facility] [Primary [facility] Provider] - 3-5 Days if not improving Activity Restrictions/Additional Instructions: Hold metoprolol for heart rates below 60. Disposition Disposition: [facility]
--- NOTE | 2022-12-23 22:15 | RAD_ITS ---
STUDY: X-RAY CHEST REASON FOR EXAM: Male, 77 years old. Cough TECHNIQUE: Single AP portable view of the chest. COMPARISON: None. FINDINGS: The lungs are clear and expanded. There is a calcified granuloma within the left midlung zone. There is no demonstrated pleural abnormality. The curvilinear density projected over the right side of the heart suggesting calcification. Normal mediastinum and jorge. Normal visualized pulmonary arteries. Normal visualized aortic arch and descending thoracic aorta. There are diffuse degenerative changes of the visualized thoracic spine. Normal visualized ribs, clavicles, and shoulders. There is no demonstrated abnormality of the visualized soft tissue structures of the upper abdomen. RAD/Chest 1 View (Portable) IMPRESSION: No demonstrated acute cardiopulmonary process. Electronically Signed: Whitney Piña MD at 22:44 EDT ,
[2022-12-23] MEDS: 0.9% Normal Saline 1,000 ML 1000 ML IV (22:45)
[2022-12-23 22:48] LABS: Absolute Lymphocyte Count 1.58 X10^3/uL (0.83-4.51); Absolute Neutrophil Count 4.3 X10^3/uL (2.0-7.7); Basophil# 0.04 X10^3/uL; Basophil% 0.6 % (0-1); Eosinophil# 0.17 X10^3/uL; Eosinophils% 2.4 % (0-5); Hematocrit 41.6 % (40-54); Hemoglobin 13.8 g/dL (13.0-16.5); Lymphocyte # 1.58 X10^3/ul (0.83-4.51); Lymphocyte % 22.6 % (19-41); Mean Corp Hgb Conc 33.2 g/dL (32-36); Mean Corpuscular Hgb 33.4 pg (27.0-32.0); Mean Corpuscular Volume 100.7 fL (80-94); Mean Platelet Vol. 10.8 fl (6.2-12.0); Monocyte# 0.92 X10^3/uL; Monocyte% 13.1 % (0-10); NRBC Flagged by Analyzer 0 % (0-5); Neutrophil # 4.27 X10^3/uL (2.7-7.7); Platelet Count 193 K/mm3 (150-450); RBC Distribution Width CV 11.5 % (11.6-14.6); RBC Distribution Width SD 42.5 fl (35.1-43.9); Red Blood Count 4.13 M/mm3 (4.6-6.2)
[2022-12-23 23:05] LABS: ALB/GLOB Ratio 1.1 RATIO (0.9-2.4); AST(SGOT) 18 U/L (15-37); Alanine Aminotransfer ALT/SGPT 20 U/L (16-61); Albumin, Serum 3.6 g/dL (3.2-5.0); Alkaline Phosphatase 95 U/L (45-117); Anion Gap 5 (5-15); BUN 20 mg/dL (7-18); BUN/Creat Ratio 20.3 RATIO (10-20); Calcium,Total 8.7 mg/dL (8.5-10.1); Chloride 107 mmol/L (98-107); Creatinine, Serum 0.99 mg/dL (0.70-1.30); EST Glomerular Filtration Rate 78 mL/min (>60); Est Glom Filt Rate - Afr Amer 94 mL/min (>60); Estimated Creatinine Clearance 46.19 ml/min; Globulin 3.2 g/dL (2.2-4.2); Glucose 91 mg/dL (74-106); Magnesium 2.2 mg/dL (1.6-2.6); Potassium 3.6 mmol/L (3.5-5.1); Protein, Total 6.8 g/dL (6.4-8.2); Sodium Level 142 mmol/L (136-145)
[2022-12-24 00:47] LABS: Bacteria 0 SEEN /hpf (None Seen); Mucous, Urine 0 SEEN /hpf (<or=2+); Red Blood Cells-Urine 0 SEEN /hpf (0-5); Squamous Epithelial Cells - UA 0 SEEN /hpf (0-5); White Blood Cells 0 SEEN /hpf (0-5)
[2022-12-24 00:48] LABS: Color, Urine Yellow (Yellow); Glucose, Dipstick Normal (Normal); Ketone-Dipstick 5 mg/dl (Negative); Leukocyte Esterase-Dipstick Negative /ul (Negative); Nitrite-Dipstick Negative (Negative); Occult Blood-Urine Negative /ul (Negative); Protein-Dipstick Negative (Negative); Specific Gravity, Urine 1.015 (1.002-1.030); Urine Bilirubin Dipstick Negative (Negative); Urine Clarity Clear (Clear); Urine Urobilinogen Normal (Normal)
[2022-12-24 02:01] VITALS: BP 148/71; PULSE 47; RESP 16
== END 2022-12-24 04:15 | disposition skilled nursing facility (03) ==
PROVIDERS: Emergency Provider Emergency Medicine; Visit Provider Emergency Medicine
DX: F03.90 Unspecified dementia, unspecified severity, without behavioral disturbance, psychotic disturbance, mood disturbance, and anxiety (principal); I48.0 Paroxysmal atrial fibrillation; N18.30 Chronic kidney disease, stage 3 unspecified; R00.1 Bradycardia, unspecified; I25.10 Atherosclerotic heart disease of native coronary artery without angina pectoris; I12.9 Hypertensive chronic kidney disease with stage 1 through stage 4 chronic kidney disease, or unspecified chronic kidney disease; Z79.899 Other long term (current) drug therapy; Z79.02 Long term (current) use of antithrombotics/antiplatelets; Z79.01 Long term (current) use of anticoagulants; Z86.73 Personal history of transient ischemic attack (TIA), and cerebral infarction without residual deficits; Z95.5 Presence of coronary angioplasty implant and graft; Z87.898 Personal history of other specified conditions
CPT/HCPCS: 70450; 71045; 80053; 81001; 83735; 85025; 87040; 87077; 87086; 87088; 87186; 87428; 93005; 96360; 99285; J7030; A4216